=== PATIENT | female | born 1950 | race Caucasian/White ===

== ENCOUNTER 2019-09-22 14:24 | Outpatient (CLI) | payer MEDICARE, MEDICAID, SELFPAY ==
--- NOTE | ~2019-09-22 | XR_ITS ---
EXAMINATION:XR_CERV2-3V_CR DATE: 09/22/2019 15:00 INDICATION: Cervicalgia TECHNIQUE: AP, lateral, lateral swimmers and odontoid views of the cervical spine are provided. COMPARISON: 04/16/2016 FINDINGS: Again seen are changes of anterior fusion from C5 through C7 with corpectomy and changes of posterior fusion from C3 through T2. The odontoid is intact. No fracture is identified. Vertebral ce dy alignment is normal. There is mild loss of intervertebral disc space height at C4-5 and C7-T1. Pre vertebral soft tissues are normal. A partially imaged triple lead pacemaker has been inserted. IMPRESSION: 1. Mild cervical spondylosis without acute findings or significant interval change. Stable surgical c hange. Reviewed, dictated and finalized at location A. ERCIAL DRAFTER IMPRESSION: 1. Mild cervical spondylosis without acute findings or significant interval emily nge. Stable surgical change.
[2019-09-22 15:12] LABS: Alanine Aminotransferase 20 U/L (4-35); Albumin Level 4.2 g/dL (3.5-5.1); Alkaline Phosphatase 54 U/L (38-126); Aspartate Amino Transferase 37 U/L (14-36); Bilirubin,Total 0.4 mg/dL (0.2-1.3); Blood Urea Nitrogen 18 mg/dL (7-17); Calcium 8.9 mg/dL (8.4-10.2); Carbon Dioxide 32 mmol/L (22-30); Chloride 99 mmol/L (98-107); Cholesterol 172 mg/dL (0-200); Estimated Glomerular Filt Rate > 60; Glucose 83 mg/dL (65-105); HDL Direct 59 mg/dL; Potassium 3.9 mmol/L (3.4-5.0); Sodium 138 mmol/L (137-145); Triglycerides 104 mg/dL (<150)
[2019-09-22 15:24] LABS: LDL Cholesterol Direct 85 mg/dL
== END 2019-09-22 14:25 | disposition home or self-care (01) ==
PROVIDERS: PCP Family Medicine; Visit Provider Physician Assistant Medical
DX: M54.2 Cervicalgia (principal); E78.5 Hyperlipidemia, unspecified; M47.892 Other spondylosis, cervical region
CPT/HCPCS: 36415; 72040; 80053; 80061

== ENCOUNTER → 2020-04-01 15:01 | Outpatient (CLI) | payer MEDICARE, MEDICAID, SELFPAY ==
--- NOTE | ~2020-04-01 | MM_ITS ---
EXAMINATION: MM scrn tay implant BI w vero HISTORY: Screening mammogram TECHNIQUE: Craniocaudal and mediolateral oblique 3-D tomosynthesis images with implant displacement a nd synthetic 2-D images were generated. Craniocaudal and mediolateral oblique views of the breasts wi thout implant displacement were obtained using full field digital mammography. CAD analysis was submi tted and interpreted. COMPARISON: 12/15/2018, 08/14/2017, 05/15/2016 bilateral implant digital screening mammogram examinatio ns BREAST PARENCHYMAL COMPOSITION: The breasts are heterogeneously dense, which may obscure small masses . FINDINGS: Status post bilateral augmentation mammoplasty. There is persistent lobularity as well as s ome peripheral calcifications of the implants. There is no evidence of suspicious mass, calcification , or architectural distortion to suggest malignancy in either breast. There has been no suspicious in terval change. IMPRESSION: 1. No mammographic evidence of malignancy. 2. Recommend routine screening mammography in one year. BI-RADS Category 2: Benign finding(s). Reviewed, dictated and finalized at location A.
== END ==
PROVIDERS: PCP Family Medicine; Visit Provider Family Medicine
DX: Z12.31 Encounter for screening mammogram for malignant neoplasm of breast (principal)
CPT/HCPCS: 77063; 77067

== ENCOUNTER → 2020-04-11 16:01 | Outpatient (CLI) | payer MEDICARE, MEDICAID, SELFPAY ==
--- NOTE | ~2020-04-11 | XR_ITS ---
EXAMINATION: XR foot RT min 3V DATE: 04/11/2020 16:29 INDICATION: Right foot pain. TECHNIQUE: 4 views of right foot were obtained. COMPARISON: Right foot radiographs 08/29/2016 FINDINGS: Bone alignment is normal. No fracture. There is interval resection of the proximal half of first proximal phalanx. There is irregularity of the distal aspect of the head of first metatarsal, l ikely from resection of the articular surface. There is mild osteoarthritis of some of the interphala ngeal joints. IMPRESSION: 1. Interval bone resection at the first metatarsophalangeal joint with resulting pseudoarthrosis. 2. Mild osteoarthritis of the interphalangeal joints. Reviewed, dictated and finalized at location A. IMPRESSION: 1. Interval bone resection at the first metatarsophalangeal joint with resultin g pseudoarthrosis. 2. Mild osteoarthritis of the interphalangeal joints.
== END ==
PROVIDERS: PCP Family Medicine; Visit Provider Podiatrist Foot & Ankle Surgery
DX: M84.374A Stress fracture, right foot, initial encounter for fracture (principal); M19.071 Primary osteoarthritis, right ankle and foot
CPT/HCPCS: 73630

== ENCOUNTER 2020-05-19 12:17 | Outpatient (CLI) | payer MEDICARE, MEDICAID, SELFPAY ==
--- NOTE | ~2020-05-19 | XR_ITS ---
EXAMINATION: XR lumbar spine 2-3V DATE: 05/19/2020 13:00 INDICATION: Low back pain. TECHNIQUE: 3 views of lumbar spine were obtained. COMPARISON: CT abdomen and pelvis 04/28/2018 FINDINGS: There is 6 degrees dextrocurvature of thoracolumbar spine. There are chronic bilateral L5 p ars defects. There is 5 mm anterolisthesis of L5 on S1. Vertebral body heights are normal. There is m ildly decreased disc height at L3-L4 and L4-L5 and severely decreased disc height at L5-S1. There is multilevel facet joint osteoarthritis. There is Baastrup disease at L3-L4 and L4-L5. There are emboli zation coils in left upper quadrant. Pacer wires are noted. IMPRESSION: 1. Chronic bilateral L5 pars defects with grade 1 anterolisthesis of L5 on S1. 2. Severe lower lumbar spondylosis. Reviewed, dictated and finalized at location A.
== END 2020-05-19 12:18 | disposition home or self-care (01) ==
LOC: ANHIMG 12:29
PROVIDERS: PCP Family Medicine; Visit Provider Nurse Practitioner Family
DX: M47.896 Other spondylosis, lumbar region (principal)
CPT/HCPCS: 72100

== ENCOUNTER 2020-08-30 14:18 | Outpatient (CLI) | payer MEDICARE, MEDICAID, SELFPAY ==
--- NOTE | ~2020-08-30 | XR_ITS ---
XR hand BI arthritis min 3V 08/30/2020 15:23 Indication: Rheumatoid arthritis Procedure: 4 views of each hand Comparison: 11/06/2005 Findings: There has been progression of polyarticular osteoarthritis involving the right first MCP an d multiple interphalangeal joints. Osteopenia. No erosive changes in the right hand. No focal soft ti ssue abnormality. No radiopaque foreign bodies. There has been progression of moderate-severe polyart icular osteoarthritis of the left hand, most advanced at the first IP, second and fifth distal interp halangeal joints. Osteopenia. No erosive changes. Impression: 1: Progression of moderate polyarticular osteoarthritis of the hands. No definite erosive changes are identified. 2: Osteopenia. Reviewed, dictated and finalized at location A. OLIDATOR Impression: 1: Progression of moderate polyarticular osteoarthritis of the hands. No defini te erosive changes are identified. 2: Osteopenia.
--- NOTE | ~2020-08-30 | XR_ITS ---
XR foot LT standing 2V, XR foot RT standing 2V 08/30/2020 15:23 Indication: Rheumatoid arthritis Procedure: 2 views of each foot Comparison: No prior studies for comparison. Findings: There are erosive changes surrounding the right first metatarsal head with secondary osteoa rthritis of the first MTP joint. Lisfranc joint intact. Mild soft tissue swelling surrounding the rig ht first MTP joint. No foreign bodies. No acute fracture is identified. Mild osteoarthritis of the le ft first MTP joint. No definite erosive changes visualized. No fracture or traumatic malalignment. Impression: 1: Erosive changes involving the right first metatarsal head with probable secondary degenerative massimo nt disease of the MTP joint. Findings compatible with known rheumatoid arthritis. 2: Mild osteoarthritis of the left first MTP joint. Reviewed, dictated and finalized at location A. E Impression: 1: Erosive changes involving the right first metatarsal head with probable seco ndary degenerative joint disease of the MTP joint. Findings compatible with kno wn rheumatoid arthritis. 2: Mild osteoarthritis of the left first MTP joint. Impression: 1: Erosive changes involving the right first metatarsal head with probable seco ndary degenerative joint disease of the MTP joint. Findings compatible with kno wn rheumatoid arthritis. 2: Mild osteoarthritis of the left first MTP joint.
[2020-08-30 15:11] LABS: Hematocrit 38.8 % (37.0-47.0); Hemoglobin 12.9 g/dL (12.0-15.0); Immature Platelet Fraction Pct 3.2 % (0.9-11.2); Mean Corpuscular HGB Conc 33.2 g/dl (32-36); Mean Corpuscular Hemoglobin 32.8 pg (26-34); Mean Corpuscular Volume 98.7 fl (80-100); Mean Platelet Volume 10.3 fl (7.4-10.4); Platelet Count Result 145 k/mm3 (150-375); Red Blood Count 3.93 M/mm3 (4.2-5.4); Red Cell Distribution Width 12.5 % (11.5-14.5)
[2020-08-30 15:17] LABS: Add Urine Microscopic? YES; Appearance Urine Clear (Clear); Bilirubin Urine Negative (Negative); Blood Urine Negative (Negative); Color Urine Yellow (Yellow); Glucose Urine UA Negative (Negative); Ketones Urine Negative (Negative); Leukocyte Esterase Ur Trace LEU/UL (Negative); Mucus Urine Heavy /lpf; Nitrate Urine Negative (Negative); Protein Urine Negative (Negative); RBC Urine 0-2 /hpf (0-2); Specific Grav Ur 1.013 (1.001-1.035); Squamous Epithelial Cell Urine Rare /hpf (Few); Urobilinogen Urine Negative mg/dL (<2.0); WBC Urine 0-3 /hpf
[2020-08-30 15:22] LABS: Alanine Aminotransferase 21 U/L (4-35); Albumin Level 3.8 g/dL (3.5-5.1); Alkaline Phosphatase 43 U/L (38-126); Anion Gap 3 mmol/L (8-16); Aspartate Amino Transferase 34 U/L (14-36); Bilirubin,Total 0.4 mg/dL (0.2-1.3); Blood Urea Nitrogen 11 mg/dL (7-17); CRP < 0.5 mg/dL (<1.0); Calcium 8.5 mg/dL (8.4-10.2); Carbon Dioxide 33 mmol/L (22-30); Chloride 104 mmol/L (98-107); Estimated Glomerular Filt Rate > 60; Glucose 76 mg/dL (65-105); Sodium 140 mmol/L (137-145)
[2020-08-30 15:23] LABS: Rheumatoid Factor < 8.6 IU/ML (<12)
[2020-08-30 15:53] LABS: Erythrocyte Sedimentation Rate 10 mm/hr (0-20)
[2020-08-30 16:46] LABS: Hepatitis B Surface Antigen Negative (Negative)
[2020-08-30 17:03] LABS: Hepatitis B Surface Anti Res Negative; Hepatitis C Virus Antibody Negative (Negative)
[2020-09-02 00:12] LABS: NIL 0.02 IU/mL; Quantiferon TB Plus, 1T NEGATIVE (NEGATIVE)
[2020-09-02 10:02] LABS: Anti Cyclic Citrullinated Pept <16 Units (<20)
== END 2020-08-30 14:19 | disposition home or self-care (01) ==
PROVIDERS: PCP Family Medicine; Visit Provider Internal Medicine
DX: M05.20 Rheumatoid vasculitis with rheumatoid arthritis of unspecified site (principal); Z11.59 Encounter for screening for other viral diseases; M19.90 Unspecified osteoarthritis, unspecified site; M05.79 Rheumatoid arthritis with rheumatoid factor of multiple sites without organ or systems involvement
CPT/HCPCS: 36415; 73130; 73620; 80053; 81001; 85027; 85055; 85652; 86038; 86039; 86140; 86200; 86430; 86480; 86706; 86803; 87340

== ENCOUNTER 2021-02-20 15:17 | Outpatient (CLI) | payer MEDICARE, MEDICAID, SELFPAY ==
[2021-02-20 16:02] LABS: Basophils Percent Auto 0.6 % (0.2-1.2); Eosinophils Absolute Auto 0.3 K/mm3 (0-0.3); Eosinophils Percent Auto 4.1 % (0-4.4); Hemoglobin 12.8 g/dL (12.0-15.0); Immature Granulocyte Absolute 0.02 K/mm3 (0.00-0.031); Immature Granulocyte Percent A 0.3 % (0-0.5); Lymphocytes Absolute Auto 2.39 K/mm3 (0.9-3.2); Lymphocytes Percent Auto 33.9 % (18.3-44.2); Mean Corpuscular HGB Conc 32.8 g/dl (32-36); Mean Corpuscular Hemoglobin 31.1 pg (26-34); Mean Corpuscular Volume 94.7 fl (80-100); Mean Platelet Volume 10.3 fl (7.4-10.4); Monocytes Absolute Auto 0.7 K/mm3 (0.1-0.6); Monocytes Percent Auto 10.1 % (2.6-8.5); Neutrophils Absolute Auto 3.6 K/mm3 (1.3-6.7); Platelet Count Result 169 k/mm3 (150-375); Red Blood Count 4.12 M/mm3 (4.2-5.4); Red Cell Distribution Width 12.9 % (11.5-14.5)
[2021-02-20 16:16] LABS: Alanine Aminotransferase 35 U/L (4-35); Albumin Level 4.1 g/dL (3.5-5.1); Alkaline Phosphatase 48 U/L (38-126); Anion Gap 6 mmol/L (8-16); Aspartate Amino Transferase 48 U/L (14-36); Bilirubin,Total 0.5 mg/dL (0.2-1.3); Blood Urea Nitrogen 19 mg/dL (7-17); Calcium 9.3 mg/dL (8.4-10.2); Carbon Dioxide 31 mmol/L (22-30); Chloride 100 mmol/L (98-107); Cholesterol 170 mg/dL (0-200); Estimated Glomerular Filt Rate > 60; Glucose 82 mg/dL (65-110); HDL Direct 53 mg/dL; Sodium 137 mmol/L (137-145); Triglycerides 111 mg/dL (<150)
[2021-02-20 16:27] LABS: LDL Cholesterol Direct 74 mg/dL
[2021-02-20 17:26] LABS: Folic Acid > 20.0 ng/mL (2.76->20); Vitamin B12 > 1000.0 pg/mL (239-931)
== END 2021-02-20 15:18 | disposition home or self-care (01) ==
LOC: ANHLAB 15:21
PROVIDERS: PCP Family Medicine; Visit Provider Family Medicine
DX: K21.9 Gastro-esophageal reflux disease without esophagitis (principal); E78.5 Hyperlipidemia, unspecified; Z13.220 Encounter for screening for lipoid disorders; M05.79 Rheumatoid arthritis with rheumatoid factor of multiple sites without organ or systems involvement
CPT/HCPCS: 36415; 80048; 80061; 80076; 82607; 82746; 85025

== ENCOUNTER 2021-04-09 08:27 | Emergency (ER) | payer MEDICARE, MEDICAID, SELFPAY ==
--- NOTE | ~2021-04-09 | XR_ITS ---
EXAMINATION: XR wrist RT min 3V, XR hand RT min 3V EXAM DATE: 04/09/2021 08:55 INDICATION: rt hand and wrist pain s/p fall last night . TECHNIQUE: Right hand frontal, lateral and oblique projections obtained and reviewed. Right wrist fro ntal, frontal with ulnar deviation, oblique and lateral projections obtained and reviewed. Comparison is made to prior examination from 08/30/2020. FINDINGS: Right metacarpal bones are unremarkable. Right wrist scapholunate joint space is maintain ed. Capitate and hamate bones appear fused, congenital variant. There are no acute fractures or dislo cations identified. There is some posterior subluxation of the right 5th distal phalanx, probably deg enerative-there was similar appearance on prior study. There is no subcutaneous gas. There is soft ti ssue swelling over the wrist posteriorly. There are no radiopaque foreign bodies. There is mild to moderate distal interphalangeal primary osteoarthritis. IMPRESSION: 1. Soft tissue swelling. 2. Chronic findings. Reviewed, dictated and finalized at location A. IMPRESSION: 1. Soft tissue swelling. 2. Chronic findings.
--- NOTE | 2021-04-09 08:36 | ED.UPPEXIN ---
HPI - Extremity Injury (Upper) General Chief Complaint: Extremity Injury, Upper Stated Complaint: RIGHT HAND INJURY Time Seen by Provider: 04/09/21 08:34 Source: patient and RN notes reviewed Mode of arrival: ambulatory Limitations: no limitations History of Present Illness HPI narrative: 70-year-old female presents to the [facility] with complaints of right hand and wrist pain after tripping and falling last night. Patient states that she was walking when she tripped and fell. Denies hitting head. No loss of consciousness. Pain swelling and bruising noted to the dorsal aspect of right hand and wrist. Significant swelling noted to the thumb area. Patient has a history of RA. Related Data Home Medications Medication Instructions Recorded Confirmed ascorbate calcium (vitamin C) PO 04/09/21 calcium carbonate-vitamin D3 tablet 04/09/21 [Cabrera-600 With Vitamin D] carvedilol 04/09/21 methotrexate sodium 04/09/21 owdskwhifwjs-saz-qtct-FA-vit K tablet PO 04/09/21 [Adults Multivitamin] pravastatin 04/09/21 tocilizumab [Actemra] mg SUBCUT 04/09/21 venlafaxine mg PO 04/09/21 04/09/21 Allergies Allergy/AdvReac Type Severity Reaction Status Date / Time metoclopramide Allergy Severe SEIZURES Verified 02/20/21 09:27 propoxyphene Allergy Severe NAUSEA Verified 02/20/21 09:27 Cephalosporins Allergy Mild SWELLING Verified 02/20/21 09:27 OF MOUTH AND THROAT Penicillins Allergy Mild SWELLING, Verified 04/09/21 08:47 HIVES prochlorperazine Allergy Mild SEIZURES Verified 02/20/21 09:27 promethazine Allergy Mild UNSURE Verified 02/20/21 09:27 capsaicin [From Zostrix] AdvReac Intermediate Joint Pain Verified 02/20/21 09:27 Review of Systems Review of Systems: All systems reviewed & are unremarkable except as noted in HPI and below Constitutional: Constitutional: Reports no additional constitutional complaints, Denies chills and Denies fever(s) Eyes: Eyes: Reports no additional eye complaints ENT: Reports system reviewed and no additional complaints, except as documented Cardiovascular: Cardiovascular: Reports no additional cardiovascular complaints Respiratory: Respiratory: Reports no additional respiratory complaints Musculoskeletal: Musculoskeletal: Reports as per HPI, Reports arthralgias (Right hand and wrist) and Reports joint swelling (Right hand and wrist) Integumentary/Breasts: Skin/Breast: Reports system reviewed and no additional complaints, except as docu Neurologic: Reports system reviewed and no additional complaints, except as documented Psychiatric: Psychiatric: Reports no additional psychiatric complaints Allergic/Immunologic: Allergic/Immunologic: Reports no additional allergic/immunologic complaints [facility] Past Medical History Medical History Anxiety Arthritis BMI 23.0-23.9, adult BMI 26.0-26.9,adult Bundle branch block Depression Encounter for screening for other viral diseases GERD without esophagitis Osteopenia Pacemaker Rheumatoid arthritis with rheumatoid factor of multiple sites without organ or systems involvement Surgical History Surgical History History of augmentation mammoplasty History of knee replacement History of Nico fundoplication Family History Family History Father Family history of malignant neoplasm Parkinsons Mother Family history of diabetes mellitus in first degree relative Diabetes mellitus Grandparent Family history of tuberculosis Sibling Pulmonary fibrosis, unspecified Other Family history of kidney disease Social History Social History Second hand tobacco smoke exposure: No Alcohol intake: never Substance use: never Substance use type: does not use 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
[2021-04-09 08:38] VITALS: BP 176/93; PULSE 85; RESP 16; TEMP 36.3; O2SAT 99
[2021-04-09 09:27] VITALS: BP 126/76
== END 2021-04-09 09:37 | disposition home or self-care (01) ==
PROVIDERS: Emergency Provider Nurse Practitioner; PCP Family Medicine
DX: S60.221A Contusion of right hand, initial encounter (principal); S60.412A Abrasion of right middle finger, initial encounter; S60.211A Contusion of right wrist, initial encounter; F41.9 Anxiety disorder, unspecified; F32.9 Major depressive disorder, single episode, unspecified; W01.0XXA Fall on same level from slipping, tripping and stumbling without subsequent striking against object, initial encounter
CPT/HCPCS: 73110; 73130; 99213; G0463

== ENCOUNTER 2021-04-14 12:58 | Emergency (ER) | payer MEDICARE, MEDICAID, SELFPAY ==
--- NOTE | ~2021-04-14 | XR_ITS ---
EXAMINATION: XR hip RT min 3V w AP pelvis EXAM DATE: 04/14/2021 15:05 INDICATION: Initial encounter following injury, with pain of the right hip. TECHNIQUE: Right hip frontal, crosstable lateral and 'frog-leg' projections for interpretation. Front al projection pelvis. FINDINGS: Smooth right hip femoral head contour, no radiographic evidence of avascular necrosis. The re are no acute fractures or dislocations identified. There is no subcutaneous gas. The soft tissue is unremarkable. There are no radiopaque foreign bodies. There is mild symmetric bilateral hip pr imary osteoarthritis. IMPRESSION: 1. Right hip, pelvis exam without acute osseous findings. Reviewed, dictated and finalized at location B.
--- NOTE | ~2021-04-14 | XR_ITS ---
EXAMINATION: XR hand RT min 3V, XR wrist RT 2V DATE: 04/14/2021 15:05 INDICATION: Right hand and wrist bruising and abrasions post fall TECHNIQUE: 1. Posteroanterior and lateral views of the right wrist were obtained. 2. Dorsal palmar and lateral views of the right hand were obtained. COMPARISON: None. FINDINGS: Alignment of the right hand and wrist are normal. Likely old healed avulsion fracture deformity at th e base of the right fifth distal phalanx. No acute fracture identified. Polyarticular osteoarthritis, severe at the second and third distal interphalangeal joints, moderate severity at the first interph alangeal, fourth and fifth distal interphalangeal, the midcarpal and triscaphe joints. Mild osteoarth ritis at the first carpometacarpal and many of the remaining metacarpophalangeal and interphalangeal joints. Soft tissue swelling over the dorsum of the carpus. IMPRESSION: 1. No acute osseous abnormality at the right hand and wrist. 2. Polyarticular osteoarthritis, moderate to severe at multiple joints at the right hand and wrist. Reviewed, dictated and finalized at location A. IMPRESSION: 1. No acute osseous abnormality at the right hand and wrist. 2. Polyarticular osteoarthritis, moderate to severe at multiple joints at the [facility]. IMPRESSION: 1. No acute osseous abnormality at the right hand and wrist. 2. Polyarticular osteoarthritis, moderate to severe at multiple joints at the r ight hand and wrist.
--- NOTE | ~2021-04-14 | XR_ITS ---
EXAMINATION: XR chest 1V DATE: 04/14/2021 15:07 INDICATION: Fall. TECHNIQUE: frontal view of the chest was obtained. COMPARISON: Chest radiograph dated 03/17/[address] dated 04/28/2018 FINDINGS: The lungs remain clear with no focal airspace opacities, pulmonary edema, pleural effusion or pneumot horax. The cardiomediastinal silhouette is normal. Three lead pacemaker/AICD seen with leads projecti ng over the expected locations of the right atrial appendage, apex of the right ventricle and overlyi ng the left ventricle likely having traversed the coronary sinus. Mineralization) left upper quadrant likely along the splenic artery. Incompletely visualized combined instrumented anterior lower cervic al and posterior cervicothoracic spinal fusion. Tiny metallic foreign body at the inferomedial right chest wall. IMPRESSION: 1. No acute cardiopulmonary disease. Reviewed, dictated and finalized at location A.
--- NOTE | ~2021-04-14 | XR_ITS ---
EXAMINATION: XR lumbar spine 2-3V, XR sacrum coccyx min 2V EXAM DATE: 04/14/2021 15:06 (accession [id number]), 04/14/2021 15:07 (accession [id number]) INDICATION: Fall low back pain. Sacral pain. Initial encounter. TECHNIQUE: Lumber spine frontal, lateral, lateral L5-S1 projections for interpretation. Sacrum fronta l, inlet, lateral projections. Compared to lumbar x-ray exam from 05/19/2020. FINDINGS: There are no acute fractures identified. Chronic bilateral L5 spondylolysis with grade 2 a nterolisthesis L5 on S1, moderate to severe loss of this disc height unchanged. Sacrum, sacroiliac marissa ints, sacral arcuate lines are intact. There is mild lumbar dextroscoliosis. There is 2 mm anterolist hesis L4 on L5. Mild disc disease L1-L5. Mild to moderate lumbar facet arthropathy. Splenic artery co ils. IMPRESSION: 1. Chronic L5 spondylolysis, grade 2 anterolisthesis. 2. Lumbar spondylosis. 3. Mild dextroscoliosis. Reviewed, dictated and finalized at location B. IMPRESSION: 1. Chronic L5 spondylolysis, grade 2 anterolisthesis. 2. Lumbar spondylosis. 3. Mild dextroscoliosis.
[2021-04-14 12:58] VITALS: BP 125/80; PULSE 92; RESP 16; TEMP 37.5; O2SAT 95
--- NOTE | 2021-04-14 14:19 | ED.BACK ---
HPI - Back Pain/Injury General Chief Complaint: Back Pain/Injury Stated Complaint: back pain, fell 2 last week Time Seen by Provider: 04/14/21 13:53 Source: patient and EMS Mode of arrival: EMS Limitations: no limitations History of Present Illness HPI Narrative: Patient 70 years old white female lives with her son, tripped and fell 6 days ago outdoors on a concrete. Patient denies any loss of consciousness, complaining of right hip, lower back, right hand pain since the fall 6 days ago. Patient did not take any pain medication over the last 6 days. History of rheumatoid arthritis patient does not take blood thinner Related Data Home Medications Medication Instructions Recorded Confirmed ascorbate calcium (vitamin C) PO 04/09/21 04/11/21 calcium carbonate-vitamin D3 tablet 04/09/21 04/11/21 [Cabrera-600 With Vitamin D] carvedilol 04/09/21 04/11/21 methotrexate sodium 04/09/21 04/11/21 brcoxbjiyyfw-geg-rxki-FA-vit K tablet PO 04/09/21 04/11/21 [Adults Multivitamin] pravastatin 04/09/21 04/11/21 tocilizumab [Actemra] mg SUBCUT 04/09/21 04/11/21 venlafaxine mg PO 04/09/21 04/11/21 Allergies Allergy/AdvReac Type Severity Reaction Status Date / Time metoclopramide Allergy Severe SEIZURES Verified 04/11/21 07:56 propoxyphene Allergy Severe NAUSEA Verified 04/11/21 07:56 Cephalosporins Allergy Mild SWELLING Verified 04/11/21 07:56 OF MOUTH AND THROAT Penicillins Allergy Mild SWELLING, Verified 04/11/21 07:56 HIVES prochlorperazine Allergy Mild SEIZURES Verified 04/11/21 07:56 promethazine Allergy Mild UNSURE Verified 04/11/21 07:56 capsaicin [From Zostrix] AdvReac Intermediate Joint Pain Verified 04/11/21 07:56 Review of Systems Review of Systems: CONSTITUTIONAL: Denies fever, chills, or sweats. EYES: Denies visual changes, redness, or discharge. ENT: Denies rhinorrhea, congestion, sore throat, or otalgia. CARDIOVASCULAR: Denies chest pain, palpitations, or edema. RESPIRATORY: Denies cough or dyspnea. GASTROINTESTINAL: Denies abdominal pain, nausea, vomiting, or diarrhea. GENITOURINARY: Denies dysuria or hematuria. SKIN: Denies rash or itching. MUSCULOSKELETAL: Denies back pain, joint pain, or myalgia. NEUROLOGIC: Denies headache, numbness, or weakness. PSYCHIATRIC: Denies anxiety or depression. [facility] Past Medical History Medical History Anxiety Arthritis BMI 23.0-23.9, adult BMI 26.0-26.9,adult Bundle branch block Depression Encounter for screening for other viral diseases GERD without esophagitis Osteopenia Pacemaker Rheumatoid arthritis with rheumatoid factor of multiple sites without organ or systems involvement Surgical History Surgical History History of augmentation mammoplasty History of knee replacement History of Nico fundoplication Family History Family History Father Family history of malignant neoplasm Parkinsons Mother Family history of diabetes mellitus in first degree relative Diabetes mellitus Grandparent Family history of tuberculosis Sibling Pulmonary fibrosis, unspecified Other Family history of kidney disease Social History Social History Smoking status: Never smoker Second hand tobacco smoke exposure: No Alcohol intake: never Substance use: never Substance use type: does not use Additional living arrangements comments: son 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
[2021-04-14] MEDS: ONDANSETRON INJ 4 MG/2 ML VIAL IV PUSH (14:25)
[2021-04-14] MEDS: MORPHINE SULFATE (*CRX) 4 MG/ML INJ IV PUSH (14:25)
[2021-04-14 15:26] LABS: Basophils Percent Auto 0.1 % (0.2-1.2); Eosinophils Percent Auto 0.1 % (0-4.4); Hemoglobin 12.4 g/dL (12.0-15.0); Immature Granulocyte Absolute 0.07 K/mm3 (0.00-0.031); Immature Granulocyte Percent A 0.5 % (0-0.5); Lymphocytes Absolute Auto 1.94 K/mm3 (0.9-3.2); Lymphocytes Percent Auto 14.1 % (18.3-44.2); Mean Corpuscular HGB Conc 33.5 g/dl (32-36); Mean Corpuscular Hemoglobin 31.7 pg (26-34); Mean Corpuscular Volume 94.6 fl (80-100); Mean Platelet Volume 10.1 fl (7.4-10.4); Monocytes Absolute Auto 1.9 K/mm3 (0.1-0.6); Monocytes Percent Auto 13.7 % (2.6-8.5); Neutrophils Absolute Auto 9.8 K/mm3 (1.3-6.7); Neutrophils Percent Auto 71.5 % (45.5-73.1); Platelet Count Result 174 k/mm3 (150-375); Red Blood Count 3.91 M/mm3 (4.2-5.4); Red Cell Distribution Width 12.9 % (11.5-14.5); White Blood Count 13.7 K/mm3 (4.5-10.0)
[2021-04-14 15:29] LABS: Add Urine Microscopic? YES; Appearance Urine Clear (Clear); Bilirubin Urine Negative (Negative); Blood Urine Negative (Negative); Color Urine Yellow (Yellow); Glucose Urine UA Negative (Negative); Ketones Urine Negative (Negative); Leukocyte Esterase Ur Negative LEU/UL (Negative); Nitrate Urine Negative (Negative); Protein Urine 1+ mg/dL (Negative); RBC Urine 0-2 /hpf (0-2); Specific Grav Ur 1.012 (1.001-1.035); Squamous Epithelial Cell Urine Rare /hpf (Few); Urobilinogen Urine Negative mg/dL (<2.0); WBC Urine 0-3 /hpf
[2021-04-14 15:36] LABS: Alanine Aminotransferase 132 U/L (4-35); Albumin Level 3.9 g/dL (3.5-5.1); Alkaline Phosphatase 155 U/L (38-126); Anion Gap 7 mmol/L (8-16); Aspartate Amino Transferase 119 U/L (14-36); Bilirubin,Total 0.8 mg/dL (0.2-1.3); Blood Urea Nitrogen 11 mg/dL (7-17); Calcium 9.1 mg/dL (8.4-10.2); Carbon Dioxide 29 mmol/L (22-30); Chloride 98 mmol/L (98-107); Estimated CRCL calculation 61 ml/min; Estimated Glomerular Filt Rate > 60; Glucose 111 mg/dL (65-110); Potassium 3.8 mmol/L (3.4-5.0); Sodium 134 mmol/L (137-145)
== END 2021-04-14 16:25 | disposition home or self-care (01) ==
PROVIDERS: Emergency Provider Emergency Medicine; PCP Family Medicine
DX: T14.8XXA Other injury of unspecified body region, initial encounter (principal); M06.9 Rheumatoid arthritis, unspecified; F41.9 Anxiety disorder, unspecified; F32.9 Major depressive disorder, single episode, unspecified; Z79.899 Other long term (current) drug therapy; Z88.8 Allergy status to other drugs, medicaments and biological substances; Z88.0 Allergy status to penicillin; Z95.0 Presence of cardiac pacemaker; W18.39XA Other fall on same level, initial encounter
CPT/HCPCS: 36415; 51701; 71045; 72100; 72220; 73100; 73130; 73502; 80053; 81001; 85025; 96374; 96375; 99284; J2270; J2405

== ENCOUNTER 2021-05-10 12:58 | Emergency (ER) | payer MEDICARE, MEDICAID, SELFPAY ==
[2021-05-10 13:14] VITALS: BP 116/81; PULSE 100; RESP 16; TEMP 36.7; O2SAT 100
--- NOTE | 2021-05-10 13:47 | ED.FEMALEGU ---
HPI - Female Genitourinary General Chief complaint: Urogenital-Female Stated complaint: bladder infection Time Seen by Provider: 05/10/21 13:48 Source: patient and RN notes reviewed Mode of arrival: ambulatory Limitations: no limitations History of Present Illness HPI Narrative: 71-year-old female presents concern for 1 day history of dysuria, frequency, suprapubic pain, foul odor. Reports history of urinary tract infections. Denies any recent urinary tract infections. She denies new back pain, nausea, vomiting. Reports suprapubic discomfort. MD elicited complaint: UTI Related Data Home Medications Medication Instructions Recorded Confirmed ascorbate calcium (vitamin C) PO 04/09/21 04/11/21 calcium carbonate-vitamin D3 tablet 04/09/21 04/11/21 [Cabrera-600 With Vitamin D] methotrexate sodium 8 WEEKLY 04/09/21 04/11/21 rrkfzcggjmwo-mkj-dkbo-FA-vit K tablet PO 04/09/21 04/11/21 [Adults Multivitamin] pravastatin 04/09/21 04/11/21 venlafaxine mg PO 04/09/21 04/11/21 cyclobenzaprine mg 05/10/21 naloxone [Narcan] INTRANASAL 05/10/21 omeprazole 05/10/21 tocilizumab [Actemra] mg SUBCUT 05/10/21 Allergies Allergy/AdvReac Type Severity Reaction Status Date / Time metoclopramide Allergy Severe SEIZURES Verified 04/11/21 07:56 propoxyphene Allergy Severe NAUSEA Verified 04/11/21 07:56 Cephalosporins Allergy Mild SWELLING Verified 04/11/21 07:56 OF MOUTH AND THROAT Penicillins Allergy Mild SWELLING, Verified 04/11/21 07:56 HIVES prochlorperazine Allergy Mild SEIZURES Verified 04/11/21 07:56 promethazine Allergy Mild UNSURE Verified 04/11/21 07:56 capsaicin [From Zostrix] AdvReac Intermediate Joint Pain Verified 04/11/21 07:56 Review of Systems Review of Systems: CONSTITUTIONAL: Denies malaise, chills, sweats, or fever. GASTROINTESTINAL: Denies abdominal pain, nausea, vomiting, diarrhea GENITOURINARY: Reports dysuria, frequency, foul odor, suprapubic discomfort SKIN: Denies rash or itching. MUSCULOSKELETAL: Denies new back pain or myalgia. All systems reviewed & are unremarkable except as noted in HPI and below PMFSH Past Medical History Medical History Anxiety Arthritis BMI 23.0-23.9, adult BMI 26.0-26.9,adult Bundle branch block Depression Encounter for screening for other viral diseases GERD without esophagitis Osteopenia Pacemaker Rheumatoid arthritis with rheumatoid factor of multiple sites without organ or systems involvement Surgical History Surgical History History of augmentation mammoplasty History of knee replacement History of Nico fundoplication Family History Family History Father Family history of malignant neoplasm Parkinsons Mother Family history of diabetes mellitus in first degree relative Diabetes mellitus Grandparent Family history of tuberculosis Sibling Pulmonary fibrosis, unspecified Other Family history of kidney disease Social History Social History Smoking status: Never smoker Second hand tobacco smoke exposure: No Alcohol intake: never Substance use: never Substance use type: does not use Additional living arrangements comments: son 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 There is no relevant family history pertinent to the presenting complaint Exam Narrative: GENERAL: Well-appearing, well-nourished, and in no acute distress. HEAD: Normocephalic. EYES: PERRLA, conjunctivae clear. NECK
== END 2021-05-10 13:56 | disposition home or self-care (01) ==
PROVIDERS: Emergency Provider Nurse Practitioner; PCP Family Medicine
DX: N39.0 Urinary tract infection, site not specified (principal); M19.90 Unspecified osteoarthritis, unspecified site; K21.9 Gastro-esophageal reflux disease without esophagitis; M81.0 Age-related osteoporosis without current pathological fracture; Z95.1 Presence of aortocoronary bypass graft; Z95.0 Presence of cardiac pacemaker; M05.9 Rheumatoid arthritis with rheumatoid factor, unspecified
CPT/HCPCS: 81003; 87077; 87086; 87186; 99213; G0463

== ENCOUNTER 2021-05-15 14:55 | Outpatient (RCR) | payer MEDICARE, MEDICAID, SELFPAY ==
--- NOTE | ~2021-05-15 | XR_ITS ---
EXAMINATION: XR hip BI wo pelvis DATE: 05/15/2021 16:28 INDICATION: Joint pain TECHNIQUE: Anteroposterior and frog-leg lateral views of the left hip and anteroposterior and frog-le g lateral views of the right hip were obtained. COMPARISON: None. FINDINGS: Bone alignment is normal. No fracture or suspected avascular necrosis. Bilateral hip joint spaces are normal. Mild right and minimal left sacroiliac osteoarthritis. Suture anchors at the bilateral pubic bodies. IMPRESSION: 1. Normal bilateral hips. Reviewed, dictated and finalized at location A. IMPRESSION: 1. Normal bilateral hips.
--- NOTE | ~2021-05-15 | XR_ITS ---
EXAMINATION: XR elbow RT 2V DATE: 05/15/2021 16:28 INDICATION: Right elbow pain TECHNIQUE: Anteroposterior and lateral views of the right elbow were obtained. COMPARISON: None. FINDINGS: Alignment is normal. No fracture or joint effusion. Joint spaces are normal. There is osseous excresc ence with cortical and medullary continuity arising from the anterior margin of the medial supracondy lar region. Soft tissues are unremarkable. IMPRESSION: 1. Small osseous excrescence arising anteriorly from the medial supracondylar region which could repr esent either a small osteochondroma or heterotopic ossicles related to old trauma. Otherwise unremark able right elbow radiographs. Reviewed, dictated and finalized at location A. IMPRESSION: 1. Small osseous excrescence arising anteriorly from the medial supracondylar r egion which could represent either a small osteochondroma or heterotopic ossicl es related to old trauma. Otherwise unremarkable right elbow radiographs.
--- NOTE | ~2021-05-15 | XR_ITS ---
EXAMINATION: XR elbow LT 2V DATE: 05/15/2021 16:28 INDICATION: Left elbow joint pain TECHNIQUE: Anteroposterior, two oblique and lateral views of the left elbow were obtained. COMPARISON: None. FINDINGS: Alignment is normal. No fracture or joint effusion. Joint spaces are normal. Soft tissues are unremar kable. IMPRESSION: 1. Negative left elbow radiographs. Reviewed, dictated and finalized at location A.
--- NOTE | ~2021-05-15 | XR_ITS ---
EXAMINATION: XR foot LT 2V, XR foot RT 2V DATE: 05/15/2021 16:28 INDICATION: Multiple joint pain TECHNIQUE: 1. Dorsoplantar and lateral views of the right foot were obtained. 2. Dorsoplantar and lateral views of the left foot were obtained. COMPARISON: 08/30/2020 FINDINGS: Left foot: Mild hallux valgus with minimal hypertrophic change at the medial head of the first metatarsal. No fr acture. Mild to moderate osteoarthritis at the first metatarsophalangeal joint and mild osteoarthriti s at a few the tarsal metatarsal and interphalangeal joints. Right foot: Postoperative as including osteotomy involving the base of the right first proximal phalanx and bunio nectomy with resection of the medial head of the first metatarsal. Alignment is normal. No fracture. Likely secondary moderate to severe osteoarthritis at the first metatarsophalangeal joint with irregu lar cortical contour to the head of the first metatarsal. Additional mild osteoarthritis at several o f the tarsal metatarsal and interphalangeal joints. IMPRESSION: 1. Osteoarthritis mild to moderate at the left first metatarsophalangeal joint and moderate to severe at the right first metatarsophalangeal joint where there has been prior osteotomy involving the base of the proximal phalanx. 2. Additional mild polyarticular osteoarthritis at multiple bilateral tarsometatarsal and interphalan geal joints. Reviewed, dictated and finalized at location A. IMPRESSION: 1. Osteoarthritis mild to moderate at the left first metatarsophalangeal joint and moderate to severe at the right first metatarsophalangeal joint where there has been prior osteotomy involving the base of the proximal phalanx. 2. Additional mild polyarticular osteoarthritis at multiple bilateral tarsometa tarsal and interphalangeal joints.
--- NOTE | ~2021-05-15 | XR_ITS ---
XR knee LT 2V 05/15/2021 16:28 Indication: Joint pain Procedure: 2 views left knee Comparison: No prior studies for comparison. Findings: No fracture, subluxation or dislocation. No significant joint effusion. No foreign bodies. No significant joint space narrowing. Impression: 1: No significant bone or joint abnormality. Reviewed, dictated and finalized at location B. Impression: 1: No significant bone or joint abnormality.
--- NOTE | ~2021-05-15 | XR_ITS ---
EXAMINATION: XR hand LT 2V, XR wrist RT 2V, XR wrist LT 2V, XR hand RT 2V DATE: 05/15/2021 16:28 INDICATION: Altered mental joint pain at the bilateral hands and wrists TECHNIQUE: 1. Posteroanterior and lateral views of the left wrist were obtained. 2. Dorsal palmar and lateral views of the left hand were obtained. 3. Posteroanterior and lateral views of the right wrist were obtained. 2. Dorsal palmar and lateral views of the right hand were obtained. COMPARISON: 08/30/2020 FINDINGS: Advanced osteoarthritis at the left second distal interphalangeal joint with chronic ulnar deviation. Alignment of the bilateral hands and wrists are otherwise normal. No fracture identified. There is additional polyarticular osteoarthritis at the bilateral hands, moderate severity at the left fifth d istal interphalangeal, right second, third and fifth distal interphalangeal, bilateral first interpha langeal joints, right triscaphe joint and lunocapitate articulation of the right mid carpal joint and mild at the left triscaphe, bilateral first carpometacarpal and majority the remaining metacarpophal angeal and interphalangeal joints. No erosions suspicious for an inflammatory arthritis. Periarticula r soft tissue swelling at several of the bilateral interphalangeal joints. IMPRESSION: 1. Advanced osteoarthritis at the left second distal interphalangeal joint with mild to moderate oste oarthritis throughout the remainder of the bilateral hands as detailed above. Reviewed, dictated and finalized at location A. IMPRESSION: 1. Advanced osteoarthritis at the left second distal interphalangeal joint with mild to moderate osteoarthritis throughout the remainder of the bilateral hand s as detailed above. IMPRESSION: 1. Advanced osteoarthritis at the left second distal interphalangeal joint with mild to moderate osteoarthritis throughout the remainder of the bilateral hand s as detailed above. IMPRESSION: 1. Advanced osteoarthritis at the left second distal interphalangeal joint with mild to moderate osteoarthritis throughout the remainder of the bilateral hand s as detailed above.
[2021-05-15 15:46] LABS: Basophils Percent Auto 0.2 % (0.2-1.2); Eosinophils Absolute Auto 0.1 K/mm3 (0-0.3); Eosinophils Percent Auto 1.3 % (0-4.4); Hematocrit 40.8 % (37.0-47.0); Hemoglobin 13.4 g/dL (12.0-15.0); Immature Granulocyte Absolute 0.03 K/mm3 (0.00-0.031); Immature Granulocyte Percent A 0.3 % (0-0.5); Lymphocytes Absolute Auto 2.89 K/mm3 (0.9-3.2); Lymphocytes Percent Auto 33.1 % (18.3-44.2); Mean Corpuscular HGB Conc 32.8 g/dl (32-36); Mean Corpuscular Hemoglobin 31.3 pg (26-34); Mean Corpuscular Volume 95.3 fl (80-100); Monocytes Absolute Auto 0.6 K/mm3 (0.1-0.6); Monocytes Percent Auto 7.1 % (2.6-8.5); Neutrophils Absolute Auto 5.1 K/mm3 (1.3-6.7); Platelet Count Result 163 k/mm3 (150-375); Red Blood Count 4.28 M/mm3 (4.2-5.4); Red Cell Distribution Width 14.5 % (11.5-14.5); White Blood Count 8.7 K/mm3 (4.5-10.0)
[2021-05-15 16:01] LABS: Creatine Kinase 106 U/L (30-135)
[2021-05-15 16:05] LABS: Alanine Aminotransferase 24 U/L (4-35); Albumin Level 4.7 g/dL (3.5-5.1); Alkaline Phosphatase 76 U/L (38-126); Anion Gap 6 mmol/L (8-16); Aspartate Amino Transferase 37 U/L (14-36); Bilirubin,Total 0.6 mg/dL (0.2-1.3); Blood Urea Nitrogen 13 mg/dL (7-17); CRP < 0.5 mg/dL (<1.0); Calcium 9.1 mg/dL (8.4-10.2); Carbon Dioxide 31 mmol/L (22-30); Chloride 103 mmol/L (98-107); Estimated Glomerular Filt Rate > 60; Glucose 91 mg/dL (65-110); Magnesium 2.1 mg/dL (1.6-2.3); Potassium 3.6 mmol/L (3.4-5.0); Sodium 140 mmol/L (137-145); Uric Acid 3.8 mg/dL (2.5-7.5)
[2021-05-15 16:08] LABS: Rheumatoid Factor < 8.6 IU/ML (<12)
[2021-05-15 16:20] LABS: Hemoglobin A1C 5.4 % (<5.7)
[2021-05-15 17:06] LABS: Erythrocyte Sedimentation Rate 24 mm/hr (0-20)
[2021-05-15 17:29] LABS: Vitamin B12 > 1000.0 pg/mL (239-931)
[2021-05-15 17:54] LABS: Vitamin D 25 Hydroxy 54.5 ng/mL
[2021-05-15 18:08] LABS: Folic Acid 17.7 ng/mL (2.76->20); Free T4 Free Thyroxine 0.99 ng/mL (0.78-2.19)
[2021-05-15 18:12] LABS: Hepatitis B Surface Antigen Negative (Negative)
[2021-05-15 18:29] LABS: Hepatitis B Surface Anti Res Negative; Hepatitis C Virus Antibody Negative (Negative)
[2021-05-17 12:47] LABS: Hepatitis C RNA, Quant PCR <15 IU/mL
[2021-05-17 15:32] LABS: Hepatitis B DNA PCR <1.00 Log IU/mL; Hepatitis B DNA PCR <10 IU/mL
[2021-05-17 22:27] LABS: NIL 0.02 IU/mL; Quantiferon TB Plus, 1T NEGATIVE (NEGATIVE)
[2021-05-19 23:02] LABS: Hepatitis B Core Ab Total Nonreactive (Nonreactive)
== END 2021-08-13 23:59 | disposition home or self-care (01) ==
LOC: ANHLAB 14:55
PROVIDERS: PCP Family Medicine; Visit Provider Internal Medicine Rheumatology
DX: Z51.81 Encounter for therapeutic drug level monitoring (principal); Z11.59 Encounter for screening for other viral diseases; D50.9 Iron deficiency anemia, unspecified; E55.9 Vitamin D deficiency, unspecified; E53.8 Deficiency of other specified B group vitamins; M19.90 Unspecified osteoarthritis, unspecified site; M79.10 Myalgia, unspecified site; R73.09 Other abnormal glucose; R53.83 Other fatigue; Z72.89 Other problems related to lifestyle
CPT/HCPCS: 36415; 73070; 73100; 73120; 73521; 73560; 73620; 80053; 82248; 82306; 82550; 82607; 82728; 82746; 83036; 83520; 83735; 84439; 84443; 84550; 85025; 85652; 86038; 86039; 86140; 86430; 86480; 86704; 86706; 86803; 87340; 87517; 87522

== ENCOUNTER → 2021-06-20 15:47 | Outpatient (CLI) | payer MEDICARE, MEDICAID, SELFPAY ==
--- NOTE | ~2021-06-20 | MM_ITS ---
EXAMINATION: MM scrn tay implant BI w vero HISTORY: Screening mammogram TECHNIQUE: Craniocaudal and mediolateral oblique 3-D tomosynthesis images with implant displacement a nd synthetic 2-D images were generated. Craniocaudal and mediolateral oblique views of the breasts wi thout implant displacement were obtained using full field digital mammography. CAD analysis was submi tted and interpreted. COMPARISON: 04/01/2020, 11/28/2018, 08/14/2017 BREAST PARENCHYMAL COMPOSITION: The breasts are heterogeneously dense, which may obscure small masses . FINDINGS: There is evidence of bilateral breast implant rupture. There is no evidence of suspicious m ass, calcification, or architectural distortion to suggest malignancy in either breast. There has bee n no suspicious interval change. IMPRESSION: 1. No mammographic evidence of malignancy. 2. Recommend routine screening mammography in one year. BI-RADS Category 1: Negative Reviewed, dictated and finalized at location A. 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
== END ==
PROVIDERS: PCP Family Medicine; Visit Provider Family Medicine
DX: Z12.31 Encounter for screening mammogram for malignant neoplasm of breast (principal)
CPT/HCPCS: 77063; 77067

== ENCOUNTER → 2021-07-01 01:07 | Outpatient (CLI) | payer MEDICARE, MEDICAID, SELFPAY ==
[2021-07-01 18:54] LABS: SARS-CoV-2 RNA PCR Negative
== END ==
PROVIDERS: PCP Family Medicine; Visit Provider Nurse Practitioner Family
DX: Z20.822 Contact with and (suspected) exposure to COVID-19 (principal)
CPT/HCPCS: C9803; U0003; U0005

== ENCOUNTER → 2021-09-27 08:06 | Outpatient (CLI) | payer MEDICARE, MEDICAID, SELFPAY ==
[2021-09-27 16:39] LABS: SARS-CoV-2 RNA PCR Negative
== END ==
PROVIDERS: PCP Family Medicine; Visit Provider Physician Assistant Medical
DX: R68.89 Other general symptoms and signs (principal); Z20.822 Contact with and (suspected) exposure to COVID-19
CPT/HCPCS: C9803; U0003; U0005

== ENCOUNTER 2021-10-27 14:42 | Outpatient (CLI) | payer MEDICARE, MEDICAID, SELFPAY ==
--- NOTE | ~2021-10-27 | XR_ITS ---
EXAMINATION: XR hand BI arthritis min 3V DATE: 10/27/2021 15:29 INDICATION: Arthritis. TECHNIQUE: 4 views of right hand and 4 views of left hand on 8 radiographs were obtained. COMPARISON: Hand radiographs 05/15/2021 FINDINGS: RIGHT HAND: There is dorsal tilt of lunate, consistent with dorsal intercalated segmental instability . There is dorsal subluxation of fifth distal phalanx with respect to the middle phalanx. There is se odin osteoarthritis of lunate-capitate joint. There is moderate osteoarthritis of triscaphe joint. Th ere is mild osteoarthritis of most of the metacarpophalangeal joints and interphalangeal joints. Ther e is moderate osteoarthritis of first interphalangeal joint and severe osteoarthritis of second, thir d, and fifth distal interphalangeal joints. LEFT HAND: There is ulnar angulation of second distal phalanx with respect to the middle phalanx. The re is dorsal subluxation of fifth distal phalanx with respect to the middle phalanx. No fracture. The re is mild osteoarthritis of first carpometacarpal joint and most of the metacarpophalangeal joints a nd interphalangeal joints. There is moderate osteoarthritis of first metacarpophalangeal joint and se odin osteoarthritis of first interphalangeal joint and second and fifth distal interphalangeal joints . IMPRESSION: 1. Right-sided dorsal intercalated segmental instability (DISI). 2. Polyarticular osteoarthritis. Reviewed, dictated and finalized at location A.
== END 2021-10-27 14:43 | disposition home or self-care (01) ==
PROVIDERS: PCP Family Medicine; Visit Provider Plastic Surgery
DX: M19.042 Primary osteoarthritis, left hand (principal); M19.041 Primary osteoarthritis, right hand; M25.341 Other instability, right hand
CPT/HCPCS: 73130

== ENCOUNTER 2021-10-27 14:50 | Outpatient (CLI) | payer MEDICARE, MEDICAID, SELFPAY ==
--- NOTE | ~2021-10-27 | XR_ITS ---
XR cervical spine min 6V DATE: 10/27/2021 15:30 INDICATION: Posterior neck pain. Surgery 7 years ago TECHNIQUE: Flexion and extension lateral views. AP, open-mouth, lateral and bilateral oblique views COMPARISON: None FINDINGS: Status post posterior surgical spine fusion by rods and screws at C2-T2. Status post anterior cervical spine surgical fusion at C5-C7. No cervical instability is noted on flexion and extension. No recent fracture or dislocation or monroe d facet or prevertebral soft tissue swelling is detected. Diffuse osteopenia. Left-sided transvenous cardiac pacemaker device IMPRESSION: Status post anterior and posterior cervical spine surgical fusion Reviewed, dictated and finalized at location A.
== END 2021-10-27 14:51 | disposition home or self-care (01) ==
PROVIDERS: PCP Family Medicine; Visit Provider Internal Medicine Rheumatology
DX: M54.2 Cervicalgia (principal); Z98.1 Arthrodesis status
CPT/HCPCS: 72052; 73130

== ENCOUNTER → 2021-11-28 08:07 | Outpatient (CLI) | payer MEDICARE, MEDICAID, SELFPAY ==
[2021-11-28 13:14] LABS: SARS-CoV-2 RNA PCR Negative
== END ==
PROVIDERS: PCP Family Medicine; Visit Provider Nurse Practitioner Family
DX: R68.89 Other general symptoms and signs (principal); Z20.822 Contact with and (suspected) exposure to COVID-19
CPT/HCPCS: C9803; U0003; U0005

== ENCOUNTER → 2022-01-02 00:32 | Outpatient (CLI) | payer MEDICARE, MEDICAID, SELFPAY ==
[2022-01-02 11:12] LABS: SARS-CoV-2 RNA PCR Negative
== END ==
PROVIDERS: PCP Family Medicine; Visit Provider Physician Assistant Medical
DX: R68.89 Other general symptoms and signs (principal); Z20.822 Contact with and (suspected) exposure to COVID-19
CPT/HCPCS: C9803; U0003; U0005

== ENCOUNTER 2022-02-09 13:37 | Emergency (ER) | payer MEDICARE, MEDICAID, SELFPAY ==
[2022-02-09 13:51] VITALS: BP 133/81; PULSE 116; RESP 16; TEMP 38.3; O2SAT 99
--- NOTE | 2022-02-09 14:50 | ED.FEMALEGU ---
HPI - Female Genitourinary General Chief complaint: Urogenital-Female Stated complaint: UTI Time Seen by Provider: 02/09/22 14:51 Source: patient Mode of arrival: ambulatory Limitations: no limitations History of Present Illness HPI Narrative: 71-year-old female presents with complaint of urinary frequency, urgency, dysuria for 2 days. Reports low-grade fever today. No back or flank pain. No nausea vomiting diarrhea. All systems reviewed and negative except as noted above. Related Data Home Medications Medication Instructions Recorded Confirmed ascorbate calcium (vitamin C) 500 PO 04/09/21 10/11/21 mg capsule calcium carbonate 600 mg-vitamin tablet 04/09/21 10/11/21 D3 5 mcg (200 unit) tablet methotrexate sodium 2.5 mg tablet 8 WEEKLY 04/09/21 10/11/21 multivit with minerals-iron 18 tablet PO 04/09/21 10/11/21 mg-folic ac 400 mcg-vit K 25 mcg tablet (Adults Multivitamin) pravastatin 40 mg tablet 04/09/21 10/11/21 Allergies Allergy/AdvReac Type Severity Reaction Status Date / Time metoclopramide Allergy Severe SEIZURES Verified 10/11/21 08:56 propoxyphene Allergy Severe NAUSEA Verified 10/11/21 08:56 Cephalosporins Allergy Mild SWELLING Verified 10/11/21 08:56 OF MOUTH AND THROAT Penicillins Allergy Mild SWELLING, Verified 10/11/21 08:56 HIVES prochlorperazine Allergy Mild SEIZURES Verified 10/11/21 08:56 promethazine Allergy Mild UNSURE Verified 10/11/21 08:56 capsaicin [From Zostrix] AdvReac Intermediate Joint Pain Verified 10/11/21 08:56 Review of Systems Review of Systems: CONSTITUTIONAL: Denies fever, chills, or sweats. EYES: Denies visual changes, redness, or discharge. ENT: Denies rhinorrhea, congestion, sore throat, or otalgia. CARDIOVASCULAR: Denies chest pain, palpitations, or edema. RESPIRATORY: Denies cough or dyspnea. GASTROINTESTINAL: Denies abdominal pain, nausea, vomiting, or diarrhea. GENITOURINARY: Reports dysuria, frequency, urgency. Denies hematuria. SKIN: Denies rash or itching. MUSCULOSKELETAL: Denies back pain, joint pain, or myalgia. NEUROLOGIC: Denies headache, numbness, or weakness. PSYCHIATRIC: Denies anxiety or depression. All other systems reviewed are negative, except as documented in HPI. 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 involvement Surgical History Surgical History H/O Spinal surgery History of augmentation mammoplasty History of knee replacement History of [place]ico fundoplication Family History Family History Father Family history of malignant neoplasm Parkinsons Mother Family history of diabetes mellitus in first degree relative Diabetes mellitus Grandparent Family history of tuberculosis Sibling Pulmonary fibrosis, unspecified Sibling COVID-19 Other Family history of kidney disease Social History Social History Second hand tobacco smoke exposure: No Alcohol intake: never Substance use: never Substance use type: does not use Additional living arrangements comments: son 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 There i
== END 2022-02-09 15:20 | disposition home or self-care (01) ==
PROVIDERS: Emergency Provider Nurse Practitioner Family; PCP Family Medicine
DX: N39.0 Urinary tract infection, site not specified (principal); M19.90 Unspecified osteoarthritis, unspecified site; K21.9 Gastro-esophageal reflux disease without esophagitis; M81.0 Age-related osteoporosis without current pathological fracture; Z95.0 Presence of cardiac pacemaker; M05.79 Rheumatoid arthritis with rheumatoid factor of multiple sites without organ or systems involvement; Z96.659 Presence of unspecified artificial knee joint
CPT/HCPCS: 81003; 87077; 87086; 87186; 99213; G0463

== ENCOUNTER 2022-05-01 12:55 | Outpatient (RCR) | payer MEDICARE, MEDICAID, SELFPAY ==
[2022-05-01 14:05] LABS: Basophils Percent Auto 0.3 % (0.2-1.2); Eosinophils Absolute Auto 0.1 K/mm3 (0-0.3); Eosinophils Percent Auto 1.2 % (0-4.4); Hematocrit 37.9 % (37.0-47.0); Hemoglobin 12.1 g/dL (12.0-15.0); Immature Granulocyte Absolute 0.02 K/mm3 (0.00-0.031); Immature Granulocyte Percent A 0.3 % (0-0.5); Lymphocytes Absolute Auto 2.21 K/mm3 (0.9-3.2); Lymphocytes Percent Auto 30.3 % (18.3-44.2); Mean Corpuscular HGB Conc 31.9 g/dl (32-36); Mean Corpuscular Volume 93.8 fl (80-100); Mean Platelet Volume 10.1 fl (7.4-10.4); Monocytes Absolute Auto 0.6 K/mm3 (0.1-0.6); Monocytes Percent Auto 7.7 % (2.6-8.5); Neutrophils Absolute Auto 4.4 K/mm3 (1.3-6.7); Neutrophils Percent Auto 60.2 % (45.5-73.1); Platelet Count Result 186 k/mm3 (150-375); Red Blood Count 4.04 M/mm3 (4.2-5.4); Red Cell Distribution Width 14.8 % (11.5-14.5); White Blood Count 7.3 K/mm3 (4.5-10.0)
[2022-05-01 14:16] LABS: Alanine Aminotransferase 22 U/L (6-35); Albumin Level 4.3 g/dL (3.5-5.1); Alkaline Phosphatase 77 U/L (38-126); Anion Gap 6 mmol/L (8-16); Aspartate Amino Transferase 37 U/L (14-36); Bilirubin,Total 0.5 mg/dL (0.2-1.3); Blood Urea Nitrogen 10 mg/dL (7-17); Calcium 8.9 mg/dL (8.4-10.2); Carbon Dioxide 29 mmol/L (22-30); Chloride 102 mmol/L (98-107); Estimated Glomerular Filt Rate > 60; Glucose 93 mg/dL (65-110); Potassium 4.3 mmol/L (3.4-5.0); Sodium 137 mmol/L (137-145)
== END 2022-07-30 23:59 | disposition home or self-care (01) ==
LOC: ANHLAB 12:55
PROVIDERS: PCP Family Medicine; Visit Provider Internal Medicine Rheumatology
DX: Z51.81 Encounter for therapeutic drug level monitoring (principal); Z79.899 Other long term (current) drug therapy
CPT/HCPCS: 36415; 80048; 80076; 85025

== ENCOUNTER 2022-07-27 10:53 | Outpatient (CLI) | payer MEDICARE, MEDICAID, SELFPAY ==
[2022-07-27 11:14] LABS: Hematocrit 39.4 % (37.0-47.0); Hemoglobin 12.6 g/dL (12.0-15.0); Mean Corpuscular Hemoglobin 29.5 pg (26-34); Mean Corpuscular Volume 92.3 fl (80-100); Mean Platelet Volume 10.1 fl (7.4-10.4); Platelet Count Result 205 k/mm3 (150-375); Red Blood Count 4.27 M/mm3 (4.2-5.4); Red Cell Distribution Width 15.4 % (11.5-14.5); White Blood Count 8.4 K/mm3 (4.5-10.0)
[2022-07-27 11:23] LABS: Alanine Aminotransferase 32 U/L (6-35); Albumin Level 4.1 g/dL (3.5-5.1); Alkaline Phosphatase 70 U/L (38-126); Anion Gap 4 mmol/L (8-16); Aspartate Amino Transferase 42 U/L (14-36); Bilirubin,Total 0.4 mg/dL (0.2-1.3); Blood Urea Nitrogen 19 mg/dL (7-17); Calcium 9.3 mg/dL (8.4-10.2); Carbon Dioxide 32 mmol/L (22-30); Chloride 99 mmol/L (98-107); Cholesterol 176 mg/dL (0-200); Estimated Glomerular Filt Rate > 60; Glucose 92 mg/dL (65-110); HDL Direct 52 mg/dL; Potassium 3.6 mmol/L (3.4-5.0); Sodium 135 mmol/L (137-145); Triglycerides 121 mg/dL (<150)
[2022-07-27 11:34] LABS: LDL Cholesterol Direct 83 mg/dL
== END 2022-07-27 10:54 | disposition home or self-care (01) ==
LOC: ANHLAB 10:55
PROVIDERS: PCP Family Medicine; Visit Provider Nurse Practitioner Family
DX: K21.9 Gastro-esophageal reflux disease without esophagitis (principal); E78.2 Mixed hyperlipidemia; M20.032 Swan-neck deformity of left finger(s); R79.89 Other specified abnormal findings of blood chemistry
CPT/HCPCS: 36415; 80053; 80061; 84443; 85027

== ENCOUNTER 2022-09-25 13:55 | Outpatient (CLI) | payer MEDICARE, MEDICAID, SELFPAY ==
--- NOTE | ~2022-09-25 | DEXA_ITS ---
Bone Density Report Name: BRANDON VALADEZ Age: 72 Sex: Female Ethnicity: White Date of : 1950 Indication: postmenopausal; screening for osteoporosis; height loss; hysterectomy; rheumatoid arthritis; Referring Provider: VALENTIN NUNN Study: Bone densitometry was performed. Exam Date: September 25, 2022 Accession number: [id number] Bone Density: Region BMD T-score Z-score Classification AP Spine(L2, L3, L4) 0.947 -1.2 1.1 Osteopenia Femoral Neck (Left) 0.608 -2.2 -0.3 Osteopenia Total Hip (Left) 0.771 -1.4 0.2 Osteopenia Femoral Neck (Right) 0.613 -2.1 -0.3 Osteopenia Total Hip (Right) 0.715 -1.9 -0.3 Osteopenia Total Hip Mean 0.743 -1.7 -0.1 Osteopenia World Health Organization criteria for BMD impression classify patients as: Normal (T-score at or above -1.0), Osteopenia (T-score between -1.0 and -2.5), or Osteoporosis (T-score at or below -2.5). 10-year Fracture Risk(1): Major Osteoporotic Fracture 17% Hip Fracture 4.0% Reported Risk Factors: [place] (), Neck BMD=0.608, BMI=27.1, rheumatoid arthritis (1) FRAX(R) Version 3.08. Fracture probability calculated for an untreated patient. Fracture probability may be lower if the patient has received treatment. Clinical Information Provided by Patient: Has rheumatoid arthritis Has used the following medications: Vitamin D, Calcium Has the following medical conditions: Hysterectomy Patient maximum height was 66 Menopause Age: 47 Onset of menses at age 16 Number of children 5 Impression: The patient has low bone mass, based on the Left Femoral Neck T-score. The patient has an estimated ten-year risk of hip fracture of 4% and an estimated ten-year risk of major fracture of 17%, based on the WHO FRAX algorithm. Discussion: BONE DENSITY IS LOW AT ONE OR MORE SKELETAL SITES. THE PATIENT'S BMD AND CLINICAL RISK FACTORS CONTRIBUTE TO THIS PATIENT'S INCREASED RISK OF FRACTURE. This patient's lowest T-score is low at one or more skeletal sites. It meets the World Health Organization's (WHO) criteria for ?low bone mass? (T-score between -1.0 and -2.5). The patient's 10-year risk of hip fracture as calculated by FRAX exceeds the threshold where pharmacological therapy is recommended by the National Osteoporosis Foundation (NOF). However, all treatment decisions require clinical judgment and consideration of individual patient factors, including patient preferences, comorbidities, previous drug use, risk factors not captured in the FRAX model (e.g., frailty, falls, vitamin D deficiency, increased bone turnover, interval significant decline in bone density) and possible under or overestimation of fracture risk by FRAX. The patient should follow a healthful lifestyle (good nutrition with adequate calcium and vitamin D, and appropriate
== END 2022-09-25 13:56 | disposition home or self-care (01) ==
PROVIDERS: PCP Family Medicine; Visit Provider Nurse Practitioner Family
DX: Z78.0 Asymptomatic menopausal state (principal); M85.89 Other specified disorders of bone density and structure, multiple sites
CPT/HCPCS: 77080

== ENCOUNTER → 2022-11-28 14:11 | Outpatient (CLI) | payer MEDICARE, MEDICAID, SELFPAY ==
--- NOTE | ~2022-11-28 | MM_ITS ---
EXAMINATION: MM scrn tay implant BI w vero HISTORY: Screening mammogram TECHNIQUE: Craniocaudal and mediolateral oblique 3-D tomosynthesis images with implant displacement a nd synthetic 2-D images were generated. Craniocaudal and mediolateral oblique views of the breasts wi thout implant displacement were obtained using full field digital mammography. CAD analysis was submi tted and interpreted. COMPARISON: 06/20/2021, 04/01/2020, 11/28/2018 BREAST PARENCHYMAL COMPOSITION: The breasts are heterogeneously dense, which may obscure small masses . FINDINGS: Again seen is evidence of bilateral breast implant rupture. There is no evidence of suspici ous mass, calcification, or architectural distortion to suggest malignancy in either breast. There meyer s been no suspicious interval change. IMPRESSION: 1. No mammographic evidence of malignancy. 2. Recommend routine screening mammography in one year. BI-RADS Category 1: Negative Reviewed, dictated and finalized at location A.
== END ==
PROVIDERS: PCP Family Medicine; Visit Provider Nurse Practitioner Family
DX: Z12.31 Encounter for screening mammogram for malignant neoplasm of breast (principal)
CPT/HCPCS: 77063; 77067

== ENCOUNTER 2023-01-09 14:49 | Outpatient (CLI) | payer MEDICARE, MEDICAID, SELFPAY ==
[2023-01-10 12:29] LABS: Anion Gap 6 mmol/L (8-16); Blood Urea Nitrogen 12 mg/dL (7-17); Calcium 8.9 mg/dL (8.4-10.2); Carbon Dioxide 32 mmol/L (22-30); Chloride 102 mmol/L (98-107); Estimated Glomerular Filt Rate > 60; Glucose 73 mg/dL (65-110); Sodium 140 mmol/L (137-145)
== END 2023-01-09 14:50 | disposition home or self-care (01) ==
PROVIDERS: PCP Family Medicine; Visit Provider Internal Medicine Cardiovascular Disease
DX: E87.5 Hyperkalemia (principal); R94.2 Abnormal results of pulmonary function studies; I44.7 Left bundle-branch block, unspecified; I42.9 Cardiomyopathy, unspecified; I34.0 Nonrheumatic mitral (valve) insufficiency; D50.9 Iron deficiency anemia, unspecified; Z95.810 Presence of automatic (implantable) cardiac defibrillator; Z20.89 Contact with and (suspected) exposure to other communicable diseases
CPT/HCPCS: 36415; 80048

== ENCOUNTER 2023-04-03 13:00 | Outpatient (CLI) | payer MEDICARE, MEDICAID, SELFPAY ==
[2023-04-03 13:47] LABS: Basophils Percent Auto 0.3 % (0.2-1.2); Eosinophils Absolute Auto 0.1 K/mm3 (0-0.3); Eosinophils Percent Auto 1.7 % (0-4.4); Hematocrit 41.1 % (37.0-47.0); Immature Granulocyte Absolute 0.02 K/mm3 (0.00-0.031); Immature Granulocyte Percent A 0.3 % (0-0.5); Lymphocytes Absolute Auto 2.19 K/mm3 (0.9-3.2); Lymphocytes Percent Auto 31.6 % (18.3-44.2); Mean Corpuscular HGB Conc 31.6 g/dl (32-36); Mean Corpuscular Hemoglobin 29.8 pg (26-34); Mean Corpuscular Volume 94.3 fl (80-100); Mean Platelet Volume 10.2 fl (7.4-10.4); Monocytes Absolute Auto 0.6 K/mm3 (0.1-0.6); Monocytes Percent Auto 8.2 % (2.6-8.5); Neutrophils Percent Auto 57.9 % (45.5-73.1); Platelet Count Result 205 k/mm3 (150-375); Red Blood Count 4.36 M/mm3 (4.2-5.4); Red Cell Distribution Width 13.9 % (11.5-14.5); White Blood Count 6.9 K/mm3 (4.5-10.0)
[2023-04-03 13:57] LABS: Anion Gap 7 mmol/L (8-16); Blood Urea Nitrogen 13 mg/dL (7-17); Calcium 8.8 mg/dL (8.4-10.2); Carbon Dioxide 31 mmol/L (22-30); Chloride 101 mmol/L (98-107); Estimated Glomerular Filt Rate > 60; Glucose 90 mg/dL (65-110); Potassium 4.1 mmol/L (3.4-5.0); Sodium 139 mmol/L (137-145)
[2023-04-10 14:12] LABS: ALT 14 U/L (6-29); Alpha-2-Macroglobulin 181 mg/dL (106-279); Apolipoprotein A1 149 mg/dL (101-198); Fibrosis Stage F0; GGT 9 U/L (3-65); Haptoglobin 170 mg/dL (43-212); Necroinflammat Act Grade A0; Total Bilirubin 0.3 mg/dL (0.2-1.2)
== END 2023-04-03 13:01 | disposition home or self-care (01) ==
LOC: ANHLAB 13:04
PROVIDERS: PCP Family Medicine; Visit Provider Internal Medicine Rheumatology
DX: Z51.81 Encounter for therapeutic drug level monitoring (principal); Z79.899 Other long term (current) drug therapy
CPT/HCPCS: 36415; 80048; 81596; 85025

== ENCOUNTER 2023-05-18 11:56 | Emergency (ER) | payer MEDICARE, MEDICAID, SELFPAY ==
--- NOTE | 2023-05-18 12:02 | ED.URI ---
HPI - URI/Sore Throat General Chief Complaint: Upper Respiratory Infection Stated Complaint: Cough Time Seen by Provider: 05/18/23 12:28 Source: patient and RN notes reviewed Mode of arrival: ambulatory Limitations: no limitations History of Present Illness HPI Narrative: 73-year-old female presents with concern for 11 day history of cough. She reports she has a persistent cough that is not improving despite her other symptoms improving after 11 days. She has not taken any cough medicine. She denies fever, chills, sweats. She reports body aches at the start of her symptoms that since resolved. MD elicited complaint: cough Related Data Home Medications Medication Instructions Recorded Confirmed ascorbate calcium (vitamin C) 500 500 mg PO DAILY 04/09/21 05/18/23 mg capsule calcium carbonate 600 mg-vitamin 1 tablet PO DAILY 04/09/21 05/18/23 D3 5 mcg (200 unit) tablet methotrexate sodium 2.5 mg tablet 8 mg PO WEEKLY 04/09/21 05/18/23 multivit with minerals-iron 18 1 tablet PO DAILY 04/09/21 05/18/23 mg-folic ac 400 mcg-vit K 25 mcg tablet (Adults Multivitamin) pravastatin 40 mg tablet 40 mg PO DAILY 04/29/23 05/18/23 abatacept 125 mg/mL subcutaneous 125 mg subcut WEEKLY 05/18/23 05/18/23 auto-injector (Orencia ClickJect) Allergies Allergy/AdvReac Type Severity Reaction Status Date / Time metoclopramide Allergy Severe SEIZURES Verified 05/18/23 12:28 propoxyphene Allergy Severe NAUSEA Verified 05/18/23 12:28 Cephalosporins Allergy Mild SWELLING Verified 05/18/23 12:28 OF MOUTH AND THROAT Penicillins Allergy Mild SWELLING, Verified 05/18/23 12:28 HIVES prochlorperazine Allergy Mild SEIZURES Verified 05/18/23 12:28 promethazine Allergy Mild UNSURE Verified 05/18/23 12:28 capsaicin [From Zostrix] AdvReac Intermediate Joint Pain Verified 05/18/23 12:28 Review of Systems Review of Systems: CONSTITUTIONAL: Reports malaise. Denies chills, sweats, or fever. EYES: Denies visual changes, redness, or discharge. ENT: Denies rhinorrhea, congestion, sinus pain, otalgia and sore throat. CARDIOVASCULAR: Denies chest pain, palpitations, or edema. RESPIRATORY: Reports persistent cough. Denies dyspnea. GASTROINTESTINAL: Denies abdominal pain, nausea, vomiting, diarrhea SKIN: Denies rash or itching. MUSCULOSKELETAL: Reports myalgia. NEUROLOGIC: Denies headache. All systems reviewed & are unremarkable except as noted in HPI and below PMFSH Past Medical History Medical History Anxiety Arthritis BMI 23.0-23.9, adult Bulging lumbar disc Bundle branch block Depression Encounter for screening for other viral diseases Fluid level behind tympanic membrane of left ear GERD without esophagitis Osteopenia Pacemaker Rheumatoid arthritis with rheumatoid factor of multiple sites without organ or systems involvement Unspecified hearing loss Surgical History Surgical History H/O Spinal surgery History of augmentation mammoplasty History of knee replacement History of [place] fundoplication Family History Family History Father Family history of malignant neoplasm Parkinsons Mother Family history of diabetes mellitus in first degree relative Diabetes mellitus Grandparent Family history of tuberculosis Sibling Pulmonary fibrosis, unspecified Sibling COVID-19 Other Family history of kidney disease Social History Social History Social History: Caffeine-none Smoking status: Never smoker Second hand tobacco smoke exposure: No Alcohol intake: never Substance use: never Substance use type: does not use Lack of Transportation: No Lack of Food: Never True Current Housing[facility]
[2023-05-18 12:13] VITALS: BP 137/103; PULSE 87; RESP 16; TEMP 37.2; O2SAT 99
== END 2023-05-18 12:38 | disposition home or self-care (01) ==
PROVIDERS: Emergency Provider Nurse Practitioner; PCP Family Medicine
DX: J40 Bronchitis, not specified as acute or chronic (principal); M19.90 Unspecified osteoarthritis, unspecified site; K21.9 Gastro-esophageal reflux disease without esophagitis; M85.80 Other specified disorders of bone density and structure, unspecified site; M05.79 Rheumatoid arthritis with rheumatoid factor of multiple sites without organ or systems involvement; Z95.0 Presence of cardiac pacemaker
CPT/HCPCS: 99213; G0463

== ENCOUNTER 2023-06-03 15:05 | Outpatient (CLI) | payer MEDICARE, MEDICAID, SELFPAY ==
--- NOTE | ~2023-06-03 | XR_ITS ---
Clinical Indication: Chronic cough PA and lateral views of the chest: Comparison: 04/14/2021 Findings: The lungs are clear, without evidence of focal consolidation or pleural effusion. Cardiome diastinal silhouette is stable, with pacemaker device. Cervicothoracic spinal fixation hardware again noted. Endovascular coils noted in the epigastric region. Impression: Clear lungs. Reviewed, dictated and finalized at location . 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
== END 2023-06-03 15:06 | disposition home or self-care (01) ==
LOC: ANHIMG 15:12
PROVIDERS: PCP Family Medicine; Visit Provider Physician Assistant Medical
DX: R05.3 Chronic cough (principal)
CPT/HCPCS: 71046

== ENCOUNTER 2023-06-24 12:52 | Outpatient (CLI) | payer MEDICARE, MEDICAID, SELFPAY | END 2023-06-24 12:53 | disposition home or self-care (01) | LOC: ANHAUDIO 12:53 | PROVIDERS: PCP Family Medicine; Visit Provider Otolaryngology | DX: H90.42 Sensorineural hearing loss, unilateral, left ear, with unrestricted hearing on the contralateral side (principal) | CPT/HCPCS: 92557; 92567 ==

== ENCOUNTER 2023-12-20 14:27 | Outpatient (RCR) | payer MEDICARE, MEDICAID, SELFPAY ==
[2023-12-20 14:51] LABS: Basophils Percent Auto 0.6 % (0.2-1.2); Eosinophils Absolute Auto 0.1 K/mm3 (0-0.3); Hematocrit 40.6 % (37.0-47.0); Hemoglobin 13.2 g/dL (12.0-15.0); Immature Granulocyte Absolute 0.01 K/mm3 (0.00-0.031); Immature Granulocyte Percent A 0.2 % (0-0.5); Lymphocytes Absolute Auto 2.28 K/mm3 (0.9-3.2); Lymphocytes Percent Auto 34.5 % (18.3-44.2); Mean Corpuscular HGB Conc 32.5 g/dl (32-36); Mean Corpuscular Hemoglobin 30.3 pg (26-34); Mean Corpuscular Volume 93.3 fl (80-100); Mean Platelet Volume 10.1 fl (7.4-10.4); Monocytes Absolute Auto 0.6 K/mm3 (0.1-0.6); Monocytes Percent Auto 8.3 % (2.6-8.5); Neutrophils Absolute Auto 3.6 K/mm3 (1.3-6.7); Neutrophils Percent Auto 54.4 % (45.5-73.1); Platelet Count Result 177 k/mm3 (150-375); Red Blood Count 4.35 M/mm3 (4.2-5.4); Red Cell Distribution Width 14.3 % (11.5-14.5); White Blood Count 6.6 K/mm3 (4.5-10.0)
[2023-12-20 15:04] LABS: Alanine Aminotransferase 23 U/L (6-35); Albumin Level 4.2 g/dL (3.5-5.1); Alkaline Phosphatase 62 U/L (38-126); Anion Gap 6 mmol/L (4-12); Aspartate Amino Transferase 39 U/L (14-36); Bilirubin,Total 0.6 mg/dL (0.2-1.3); Blood Urea Nitrogen 15 mg/dL (7-17); Carbon Dioxide 29 mmol/L (22-30); Chloride 103 mmol/L (98-107); Estimated Glomerular Filt Rate > 60; Glucose 92 mg/dL (65-110); Potassium 4.1 mmol/L (3.4-5.0); Sodium 138 mmol/L (137-145)
== END 2024-03-19 23:59 | disposition home or self-care (01) ==
LOC: ANHLAB 14:27
PROVIDERS: PCP Family Medicine; Visit Provider Internal Medicine Rheumatology
DX: Z51.81 Encounter for therapeutic drug level monitoring (principal); Z79.01 Long term (current) use of anticoagulants
CPT/HCPCS: 36415; 80048; 80076; 85025

== ENCOUNTER 2024-01-03 14:16 | Outpatient (CLI) | payer MEDICARE, MEDICAID, SELFPAY ==
--- NOTE | ~2024-01-03 | MM_ITS ---
EXAMINATION: MM scrn tay implant BI w vero HISTORY: Screening mammogram TECHNIQUE: Craniocaudal and mediolateral oblique 3-D tomosynthesis images with implant displacement a nd synthetic 2-D images were generated. Craniocaudal and mediolateral oblique views of the breasts wi thout implant displacement were obtained using full field digital mammography. CAD analysis was submi tted and interpreted. COMPARISON: Comparison to multiple prior studies sequentially, with oldest reviewed study dated 04/28. BREAST PARENCHYMAL COMPOSITION: Not dense: There are scattered areas of fibroglandular density. FINDINGS: There is no evidence of suspicious mass, calcification, or architectural distortion to sugg est malignancy in either breast. There has been no suspicious interval change. IMPRESSION: 1. No mammographic evidence of malignancy. 2. Recommend routine screening mammography in one year. BI-RADS Category 1: Negative Reviewed, dictated and finalized at location B.
== END 2024-01-03 14:17 ==
PROVIDERS: PCP Family Medicine; Visit Provider Family Medicine
DX: Z12.31 Encounter for screening mammogram for malignant neoplasm of breast (principal)
CPT/HCPCS: 77063; 77067

== ENCOUNTER 2024-01-09 14:52 | Outpatient (CLI) | payer MEDICARE, MEDICAID, SELFPAY ==
[2024-01-09 16:41] LABS: Basophils Percent Auto 0.5 % (0.2-1.2); Eosinophils Absolute Auto 0.2 K/mm3 (0-0.3); Eosinophils Percent Auto 2.1 % (0-4.4); Hematocrit 41.7 % (37.0-47.0); Hemoglobin 13.5 g/dL (12.0-15.0); Immature Granulocyte Absolute 0.02 K/mm3 (0.00-0.031); Immature Granulocyte Percent A 0.3 % (0-0.5); Lymphocytes Absolute Auto 2.57 K/mm3 (0.9-3.2); Lymphocytes Percent Auto 35.2 % (18.3-44.2); Mean Corpuscular HGB Conc 32.4 g/dl (32-36); Mean Corpuscular Hemoglobin 30.4 pg (26-34); Mean Corpuscular Volume 93.9 fl (80-100); Mean Platelet Volume 10.5 fl (7.4-10.4); Monocytes Absolute Auto 0.6 K/mm3 (0.1-0.6); Monocytes Percent Auto 8.2 % (2.6-8.5); Neutrophils Absolute Auto 3.9 K/mm3 (1.3-6.7); Neutrophils Percent Auto 53.7 % (45.5-73.1); Platelet Count Result 198 k/mm3 (150-375); Red Blood Count 4.44 M/mm3 (4.2-5.4); Red Cell Distribution Width 14.4 % (11.5-14.5); White Blood Count 7.3 K/mm3 (4.5-10.0)
[2024-01-09 16:54] LABS: Alanine Aminotransferase 25 U/L (6-35); Albumin Level 4.4 g/dL (3.5-5.1); Alkaline Phosphatase 68 U/L (38-126); Amylase 58 U/L (30-110); Anion Gap 7 mmol/L (4-12); Aspartate Amino Transferase 39 U/L (14-36); Bilirubin,Total 0.5 mg/dL (0.2-1.3); Blood Urea Nitrogen 12 mg/dL (7-17); Calcium 9.4 mg/dL (8.4-10.2); Carbon Dioxide 29 mmol/L (22-30); Chloride 104 mmol/L (98-107); Estimated Glomerular Filt Rate > 60; Glucose 86 mg/dL (65-110); Lipase 61 U/L (23-300); Potassium 4.1 mmol/L (3.4-5.0); Sodium 140 mmol/L (137-145)
[2024-01-09 17:25] LABS: Iron 84 ug/dL (37-170)
[2024-01-09 17:28] LABS: Creatinine Urine 73.2 mg/dL
[2024-01-09 17:34] LABS: MALB Creatinine Ratio < 8.2 mg/g (0-30); Microalbumin Urine Random < 6.0 mg/L (0-16.7)
[2024-01-09 17:35] LABS: Percent Iron Saturation 26 % (20-50)
== END 2024-01-09 14:53 | disposition home or self-care (01) ==
PROVIDERS: PCP Family Medicine; Visit Provider Internal Medicine Cardiovascular Disease
DX: E87.5 Hyperkalemia (principal); R94.2 Abnormal results of pulmonary function studies; I44.7 Left bundle-branch block, unspecified; I42.9 Cardiomyopathy, unspecified; I38 Endocarditis, valve unspecified; D50.9 Iron deficiency anemia, unspecified; Z20.89 Contact with and (suspected) exposure to other communicable diseases; Z95.810 Presence of automatic (implantable) cardiac defibrillator
CPT/HCPCS: 36415; 80053; 82043; 82150; 82728; 83540; 83550; 83690; 85025

== ENCOUNTER 2024-05-06 13:46 | Emergency (ER) | payer MEDICARE, MEDICAID, SELFPAY ==
[2024-05-06] VITALS (8 sets, daily range): BP systolic 130–133; BP diastolic 78–88; PULSE 76–92; RESP 16–18; TEMP 36.5–36.7; O2SAT 67–100
--- NOTE | ~2024-05-06 | CT_ITS ---
EXAMINATION: CT brain wo con DATE: 05/06/2024 15:02 INDICATION: Dizziness. Headache. TECHNIQUE: Computed tomography (CT) of the head was performed without intravenous contrast. The mA wa s adjusted according to patient size. Iterative reconstruction technique was employed. The dose-lengt h product was 605.33 mGy-cm. COMPARISON: Head CT 05/04/2013 FINDINGS: There are scattered areas of low attenuation in the cerebral white matter. There is no intr acranial hemorrhage, acute infarction, or abnormal intracranial mass lesion. The ventricles are francisco l in size. The orbits are normal. There is mild mucosal thickening in the paranasal sinuses. The mast oid air cells are normal. IMPRESSION: 1. Mild nonspecific cerebral white matter disease, which likely represents chronic small vessel ische rose mary disease. Reviewed, dictated and finalized at location A. IMPRESSION: 1. Mild nonspecific cerebral white matter disease, which likely represents ink grinder tyrone small vessel ischemic disease.
--- NOTE | 2024-05-06 13:48 | ECG_ITS ---
Test Date: 2024-05-06 14:10:05 Measurements Intervals [place] Rate: 87 P: 33 NE: 154 QRS: -45 QRSD: 130 T: 125 QT: 382 QTc: 461 Interpretive Statements SINUS RHYTHM WITH ATRIAL SENSING AND ELECTRONIC VENTRICULAR PACEMAKER ABNORMAL RHYTHM ECG No previous ECG available for comparison Electronically Signed On 05-07-2024 07:48:43 CDT by Socrates Gomez M.D.
--- NOTE | 2024-05-06 14:08 | ED.GENADULT ---
HPI - General Adult General Chief complaint: Nausea/Vomiting/Diarrhea <MEHNAZ Snider Last Filed: 05/06/24 14:14> Stated complaint: dizziness, n/v x4days <MEHNAZ Snider Last Filed: 05/06/24 14:14> Time Seen by Provider: 05/06/24 14:08 <MEHNAZ Snider Last Filed: 05/06/24 14:14> Focused HPI: Patient is a 74 y/o female who presents to the ED with c/o dizziness and N/V. Patient reports having a dizzy feeling in the back of her head for the past 4 days. Dizziness is intermittent, worse with movement, bending over, turning head. Described as a room spinning sensation. Does have hx of vertigo but states this feels different. Dizziness causes her to be nauseous. Has had multiple episodes of emesis. States she did have a OSBORNE 5 days ago, but this has since resolved. Denies vision changes. Denies focal weakness, numbness. Denies CP/SOB. GENERAL: Elderly but well appearing, well-nourished, and in no acute distress. HEAD: Normocephalic, atraumatic. EYES: PERRL/EOMI, conjunctiva clear. No significant nystagmus. CHEST: Clear to auscultation. ?No respiratory distress. HEART: Regular rate and rhythm.? NEURO: ?Alert and oriented x3. No gross focal deficits. Equal utility appraiser strength bilaterally. Strength 5/5 in upper and lower extremities marilee. No pronator drift. Patient screened in triage and initial orders placed.? ?Additional care and disposition to be based upon?diagnostic testing and treatment. <MEHNAZ Snider Last Filed: 05/06/24 14:14> Source: patient <MEHNAZ Snider Last Filed: 05/06/24 14:14> Mode of arrival: ambulatory <MEHNAZ Snider Last Filed: 05/06/24 14:14> Limitations: no limitations <MEHNAZ Snider Last Filed: 05/06/24 14:14> History of Present Illness HPI narrative: Agree with HPI <Yovany Urias MD - Last Filed: 05/06/24 18:21> Related Data Home medications: Home Medications Medication Instructions Recorded Confirmed ascorbate calcium (vitamin C) 500 500 mg PO DAILY 04/09/21 02/17/24 mg capsule calcium 600 mg (as 1 tablet PO DAILY 04/09/21 02/17/24 carbonate)-vitamin D3 5 mcg (200 unit) tablet methotrexate sodium 2.5 mg tablet 8 mg PO WEEKLY 04/09/21 02/17/24 multivit with minerals-iron 18 1 tablet PO DAILY 04/09/21 02/17/24 mg-folic ac 400 mcg-vit K 25 mcg tablet (Adults Multivitamin) pravastatin 40 mg tablet 40 mg PO DAILY 04/29/23 02/17/24 abatacept 125 mg/mL subcutaneous 125 mg subcut WEEKLY 05/18/23 02/17/24 auto-injector (Orencia ClickJect) hydroxychloroquine 200 mg tablet 100 mg PO BID 12/24/23 02/17/24 <Jaz Meyers PA-C - Last Filed: 05/06/24 14:14> Allergies/adverse reactions: Allergies Allergy/AdvReac Type Severity Reaction Status Date / Time metoclopramide Allergy Severe SEIZURES Verified 02/17/24 10:46 propoxyphene Allergy Severe NAUSEA Verified 02/17/24 10:46 Cephalosporins Allergy Mild SWELLING Verified 02/17/24 10:46 OF MOUTH AND THROAT Penicillins Allergy Mild SWELLING, Verified 02/17/24 10:46 HIVES prochlorperazine Allergy Mild SEIZURES Verified 02/17/24 10:46 promethazine Allergy Mild UNSURE Verified 02/17/24 10:46 capsaicin [From Zostrix] AdvReac Intermediate Joint Pain Verified 02/17/24 10:46 <Jaz Meyers PA-C - Last Filed: 05/06/24 14:14> Review of Systems Review of Systems: All systems reviewed & are unremarkable except as noted in HPI and below <Yovany Urias MD - Last Filed: 05/06/24 18:21> Constitutional: Constitutional: Reports chills, Reports fatigue and Denies fever(s) <Yovany Urias MD - Last Filed: 05/06/24 18:21> ENT: Reports dizziness, Denies nasal congestion and Denies sore throat <Yovany Urias MD - Last Filed: 05/06/24 18:21> Cardiovascular: Cardiovascular: Reports no additional cardiovascular complaints <Yovany Urias MD - Last Filed: 05/06/24 18:
[2024-05-06 14:23] LABS: Hemoglobin 15.7 g/dL (12.0-15.0); Mean Corpuscular HGB Conc 33.4 g/dl (32-36); Mean Corpuscular Volume 92.7 fl (80-100); Mean Platelet Volume 9.9 fl (7.4-10.4); Platelet Count Result 147 k/mm3 (150-375); Red Blood Count 5.07 M/mm3 (4.2-5.4); White Blood Count 3.6 K/mm3 (4.5-10.0)
[2024-05-06 14:36] LABS: Alanine Aminotransferase 20 U/L (6-35); Albumin Level 4.4 g/dL (3.5-5.1); Alkaline Phosphatase 65 U/L (38-126); Anion Gap 5 mmol/L (4-12); Aspartate Amino Transferase 42 U/L (14-36); Bilirubin,Total 0.5 mg/dL (0.2-1.3); Blood Urea Nitrogen 11 mg/dL (7-17); Calcium 8.5 mg/dL (8.4-10.2); Carbon Dioxide 30 mmol/L (22-30); Chloride 96 mmol/L (98-107); Estimated CRCL calculation 49 ml/min; Estimated Glomerular Filt Rate > 60; Glucose 100 mg/dL (65-110); Lipase 120 U/L (23-300); Magnesium 2.1 mg/dL (1.6-2.3); Potassium 3.6 mmol/L (3.4-5.0); Sodium 131 mmol/L (137-145)
[2024-05-06 15:06] LABS: Lymphocytes Absolute Manual 1.29 K/mm3 (1.1-4.5); Monocytes Absolute Manual 0.79 K/mm3 (0.1-0.90); Monocytes Percent Manual 22 % (3-9); Neutrophils Percent Manual 42 % (46-73); Platelet Estimate Slightly Decreased (Adequate); Schistocytes None Seen; Total Cells Counted 100
[2024-05-06 15:18] LABS: Add Urine Microscopic? YES; Appearance Urine Clear (Clear); Bacteria Urine 4+ /hpf; Bilirubin Urine Negative (Negative); Blood Urine Negative (Negative); Color Urine Yellow (Yellow); Glucose Urine UA Negative (Negative); Ketones Urine 1+ mg/dL (Negative); Leukocyte Esterase Ur 2+ LEU/UL (Negative); Nitrate Urine Positive (Negative); Non Pathogenic Casts 0-2; Protein Urine 1+ mg/dL (Negative); RBC Urine 0-2 /hpf (0-2); Specific Grav Ur 1.019 (1.001-1.035); Squamous Epithelial Cell Urine None Seen /hpf (Few); Urobilinogen Urine 0.2 mg/dL (<2.0); WBC Urine 21-50 /hpf (0-3)
[2024-05-06] MEDS: SODIUM CHLORIDE 0.9% IV 1,000 ML 999 ML IV CONT ×2 (16:13→16:14)
[2024-05-06] MEDS: ONDANSETRON INJ 4 MG/2 ML VIAL IV PUSH (16:13)
[2024-05-06] MEDS: MECLIZINE HCL 25 MG TABLET PO (16:13)
[2024-05-06 17:44] LABS: Influenza A QL RT-PCR Negative (Negative); Influenza B QL RT-PCR Negative (Negative); RSV RNA, RT-PCR Negative (Negative); SARS-CoV-2 RNA PCR Positive (Negative)
== END 2024-05-06 18:43 | disposition home or self-care (01) ==
PROVIDERS: Emergency Provider Emergency Medicine; PCP Family Medicine
DX: U07.1 COVID-19 (principal); N39.0 Urinary tract infection, site not specified; K21.9 Gastro-esophageal reflux disease without esophagitis; M19.90 Unspecified osteoarthritis, unspecified site; M05.79 Rheumatoid arthritis with rheumatoid factor of multiple sites without organ or systems involvement; M85.80 Other specified disorders of bone density and structure, unspecified site; Z95.0 Presence of cardiac pacemaker; Z96.659 Presence of unspecified artificial knee joint; Z79.620 Long term (current) use of immunosuppressive biologic; R90.82 White matter disease, unspecified
CPT/HCPCS: 36415; 70450; 80053; 81001; 83690; 83735; 85025; 87077; 87086; 87186; 87637; 93005; 96361; 96374; 99284; A9270; J2405; J7030

== ENCOUNTER 2024-11-25 00:48 | Day surgery (SDC) | payer MEDICARE, MEDICAID, SELFPAY ==
[2024-11-18 10:57] VITALS: BMI 25.8
--- OUTSIDE RECORDS SUMMARY | 2024-11-25 00:51 | XMS_ITS | Clinical Summary ---
Author Organization [facility] Address [address] [address] Phone Care Team Providers Care Garbage Pick Up Man Name Role Phone Primitivo Merchant MD Primary Care Provider [phone] Social History Tobacco Use Types Packs/Day Years Used Date Smoking Tobacco: Never Assessed Comments Unknown Sex and Gender Information Value Date Recorded Sex Assigned at Not on file Legal Sex Female 10:28 PM CDT Gender Identity Not on file Sexual Orientation Not on file Plan of Treatment Health Maintenance Due Date Last Done Comments DEXA Bone Density 1950 Hepatitis C Virus (HCV) Screening 1950 TdaP Immunization 1950 Cologuard 2001 Immunochemical Fecal Occult Blood 2001 Mammogram 2001 Pneumococcal Immunization (5 0+ years) (1 of 1 - PCV) 2001 Zoster Immunization (1 of 2) 2001 Influenza Immunization (#1) 2024 SARS-COV-2 Immunization ( - season) 2024 Respiratory Syncytial Virus (RSV) Immunization (Adult) (1 - 1-dose 75+ series) 2026 Colonoscopy 07/03/2028 07/03/2018 Colorectal Cancer Screening 07/03/2028 07/03/2018 Hepatitis B Immunization Aged Out No longer eligible based on patient's age to complete this topic Meningococcal Immunization (ACWY) Aged Out No longer eligible based on patient's age to complete this topic Rotavirus Immunization Aged Out No lo nger eligible based on patient's age to complete this topic Procedures Procedure Name Priority Date/Time Associated Diagnosis Comments HM COLONOSCOPY Routine 07/03/2018 from Last 3 Months or Most Recently Relevant to Health Maintenance Results * HM COLONOSCOPY (07/03/2018) Mo Sanchez DO PROCEDURE/MINOR SURGICAL ORDERA BLES Final Result from Last 3 Months or Most Recently Relevant to Health Maintenance Insurance MEDICAID [place] Care Teams Garbage Pick Up Man Relationship Specialty Start Date End Date Primitivo Merchant MD [address] [address] PCP - General Family Medicine 07/05/18
--- OUTSIDE RECORDS SUMMARY | 2024-11-25 00:51 | XMS_ITS | Referral Summary ---
Author Organization [facility] Address [address] [place] [address] Care Team Providers Care Manufacturing Scheduler Name Role Phone Primitivo Merchant MD Primary Care Provider [phone] Allergies Active Allergy Reactions Criticality Noted Date Comments Cephalexin Itching,Other (See comments) Low Reaction: FACE SWELLING Codeine Nausea only Low Docosanol Unknown Latex Itching,Other (See comments) Medium 09/06/2016 Red hands and itching after contact, Reaction: Burning Sensation Losartan Other (See comments) Low 05/20/2019 Metoclopramide Rash Medium Other Unknown 08/29/2016 Penicillins Swelling,Other (See comments) Medium Reaction: FACE SWELLING Prochlorperazine Other (See comments) Low convulsion Spironolactone Other (See comments) Low 05/20/2019 Terfenadine Unknown Medications cycloSPORINE (RESTASIS) 0.05 % ophthalmic emulsion Take as directed 0 0 9 Active Additional Information Patient taking differently: 1 drop each eye Every 12 hours, Reported on 01/09/2022 venlafaxine XR (EFFEXOR XR) 150 mg 24 hr capsule take 1 capsule by oral route every day 90 3 4 Active Additional Information Patient taking differently:150 mgoral Daily after lunch, Informant: Self, Reported on 01/09/2022 ascorbic acid (VITAMIN C) 500 mg tablet,chewableI ndications:suppl ement Take 500 mg by mouth daily after lunch Active pravastatin (PRAVACHOL) 40 mg tabletIndication s:hyperlipidemia Take 40 mg by mouth daily after lunch 3 9 Active carvedilol (COREG) 3.125 mg tablet Take 3.125 mg by mouth 2 (two) times a day 3 9 Active cyclobenzaprine (FLEXERIL) 10 mg tablet Take 10 mg by mouth 3 (three) times a day as needed for muscle spasms 0 Active meloxicam (MOBIC) 15 mg tabletIndication s:Rheumatoid Arthritis Take 1 tablet (15 mg total) by mouth daily 30 tablet 4 0 Active Additional Information Patient taking differently:15 mg oralDaily PRN, Indications: Rheumatoid Arthritis, Informant: Self, Reported on 01/09/2022 gabapentin (NEURONTIN) 300 mg capsule TAKE 1 CAPSULE BY MOUTH THREE TIMES DAILY 180 capsule 1 Active Additional Information Patient taking differently: 300 mg oral 3 times daily, Informant: Self, Reported on 01/09/2022 HYDROcodone-acet aminophen (NORCO) 5-325 mg per tablet Take 1 tablet by mouth every 6 (six) hours as needed for pain 1 Active multivitamin capsuleIndicatio ns:Vitamin Deficiency Prevention Take 1 capsule by mouth daily after lunch Active calcium carbonate-vitami n D3 1,500 mg (600mg elemental) -800 unit per tabletIndication s:Prevention of Vitamin D Deficiency Take 1 tablet by mouth daily after lunch Active zinc 50 mg tabletIndication s:supplement Take 1 tablet by mouth daily after lunch Active methotrexate 2.5 mg tabletIndication s:Rheumatoid Arthritis Take 10 tablets (25 mg total) by mouth every 7 days 120 tablet 1 Active Additional Information Patient taking differently:25 mg oral Every 7 days,On Saturday, Indications: Rheumatoid Arthritis, Informant: Self, Reported on 01/09/2022 folic acid (FOLVITE) 1 mg tabletIndication s:Rheumatoid arthritis, involving unspecified site, unspecified whether rheumatoid factor present (HCC) Take 1 tablet (1,000 mcg total) by mouth daily 90 tablet 3 1 Active Additional Information Patient taking differently:1,000 mcg oralDaily after lunch, Informant: Self, Reported on 01/09/2022 hydrOXYchloroQUI NE (PLAQUENIL) 200 mg tabletIndication s:Rheumatoid Arthritis Take 1 tablet (200 mg total) by mouth daily 30 tablet 1 Active Additional Information Patient taking differently:200 mg oralDaily after lunch, Indications: Rheumatoid Arthritis, Informant: Self, Reported on 01/09/2022 melatonin 5 mg tabletIndication s:sleep Take 5 mg by mouth nightly as needed Active Active Problems Problem Noted Date Diagnosed Date 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 Overview (01/02/2022): Added automatically from request for surgery [id number] De Quervain's disease (radial styloid tenosynovi tis) 01/02/2022 Overview (01/02/2022): Added automatically from request for surgery [id number] Aortic dilatation 07/02/2018 Overview (07/02/2018): Ascending aorta is 3.8 cm High risk medication use 02/21/2017 Sliding hiatal hernia 11/22/2016 Overview (12/21/2016): Sliding diaphragmatic hernia Chronic idiopathic constipation 10/02/2016 Rectal prolapse 08/14/2016 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 Overview (10/31/2016): CERVICOBRACHIAL SYNDROME Rheumatoid arthritis, seropositive, multiple sit es 12/12/2013 Overview (11/01/2016): RHEUMATOID ARTHRITIS Thoracic and lumbosacral neuritis 12/12/2013 Overview (11/01/2016): LUMBOSACRAL NEURITIS NOS Notalgia 07/01/2013 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 Meningioma 04/08/2012 Coagulation disorder 06/28/2011 Fibromyalgia 03/12/2011 Fatigue 03/12/2011 Mitral valve prolapse 03/12/2011 Cephalalgia 03/12/2011 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 Osteopenia 02/20/2011 Cervicalgia 02/20/2011 Immunizations Immunization Administration Dates Next Due Influenza, Quadrivalent, Rec ombinant, Egg Free, Preservative Free, Intramuscular 03/28/2020 Influenza, Quadrivalent, Spl it, Preservative Free, Intramuscular 04/06/2016 Influenza, Split 05/16/2011,05/01/2010 Influenza, Trivalent, High D ose, Split, Preservative Free, Intramuscular 05/20/2019,04/01/2018,04/20/2017 Influenza, Trivalent, IM (MDV) 5,04/06/2013,04/18/2009,05/13 Influenza, Trivalent, Preser vative Free, Intramuscular 03/29/2013 Influenza, Unspecified 04/26/2018,04/15/2017 Pneumococcal Conjugate PCV 13 07/01/2015 Pneumococcal Polysaccharide PPV23 11/26/2016 Tdap 03/21/2017 ZOSTER Recombinant 08/17/2019 Social History Tobacco Use Types Packs/Day Years Used Date Smoking Tobacco: Never Smokeless Tobacco: Never Alcohol Use Standard Drinks/Week Comments No 0 (1 standard drink = 0.6 oz pur e alcohol) AUDIT-C Answer Date Recorded Q1: How often do you have a drink containing alcohol? Never 01/03/2022 Q2: How many drinks containi ng alcohol do you have on a typical day when you are drinking? Patient does not drink Q3: How often do you have si x or more drinks on one occasion? Never 01/03/2022 Comments No Sex and Gender Information Value Date Recorded Sex Assigned at Not on file Legal Sex Female 2:59 PM REHABILITATION SERVICES COORDINATOR Gender Identity Not on file Sexual Orientation Not on file Last Filed Vital Signs Vital Sign Reading Time Taken Comments Blood Pressure 116/78 01/09/2022 1:20 PM CDT Pulse 74 01/09/2022 1:30 PM CDT Temperature 36.3 C (97.3 F) 01/09/2022 11:59 AM CDT Respiratory Rate 21 01/09/2022 1:30 PM CDT Oxygen Saturation 98% 01/09/2022 1:30 PM CDT Inhaled Oxygen Concentration - - Weight 68 kg (150 lb) 01/03/2022 8:15 AM CDT Height 167.6 cm (5' 6 ) 01/03/2022 8:15 AM CDT Body Mass Index 24.21 01/03/2022 8:15 AM CDT Plan of Treatment Not on file Medical Devices Implanted Type Area Otr Driver Device Identifier Shelf Expiration Date Model / Serial / Lot Icd-10/27/2018 Implanted:2018 by Unknown, Notinfile (Quantity not on file) ICD Chest Biotronik [id number] / [id number] / Description:Implanted by [facility] Cariology - Dr. Kristy Brunson [id number] Lead (Ra)-10/27/2018 Implanted:2018 by Unknown, Notinfile (Quantity not on file) Lead Heart Biotronik SOLIA [id number] / [id number] / Description:Implanted by [facility] Cariology - Dr. Kristy Brunson [phone] Lead (Rv)-10/27/2018 Implanted:2018 by Unknown, Notinfile (Quantity not on file) Lead Heart Biotronik PLEXA [id number] / [id number] / Description:Implanted by [facility] Vladislav Brunson [id number] Lead (Cor Sinus)-02/23/2019 Implanted:2018 by Unknown, Notinfile (Quantity not on file) Lead Heart Biotronik SENTUS [id number] / [id number] / Description:Implanted by [facility] Carmaribel - Dr. Kristy Brunson [id number] TwtBks [id number] [facility] Coil 400 Rosa .02in 4mm 20cm Complex Large Volume Fully - [id number] Implanted:Qty: 1 on 06/11/2018 at [facility] 07/01/2025 [id number] / / [id number] [facility] [id number] Pod 45cm Pack J-Soft Coil Embolization Sterile Latex Free - [id number] Implanted:Qty: 1 on 06/11/2018 at [facility] 02/22/2026 [id number] / / [id number] Daig Beat[employer] [id number] Angio-Seal Vip Bondek-Plus 6fr .035in 70cm Hemostatic Latex Free - [id number] Implanted:Qty: 1 on 06/11/2018 at [facility] Daig [employer] 03/28/2019 [id number] / / [id number] [employer] [id number] Penumbra Coil 400 Rosa .02in 5mm 30cm Complex Large Volume Fully - [id number] Implanted:Qty: 1 on 06/11/2018 at [facility] [employer] 10/31/2023 [id number] / / [id number] [employer] [id number] Pod 15cm Pack J-Soft Coil Embolization Sterile Latex Free - [id number] Implanted:Qty: 1 on 06/11/2018 at [facility] [employer] 02/16/2026 [id number] / / [id number] [employer] [id number] Valeri 6mm 14cm 7.4 Loop Soft Radiopacity .018in Coil - [id number] Implanted:Qty: 1 on 06/11/2018 at [facility] [employer] 04/11/2023 [id number] / / [id number] [employer] [id number] Valeri 6mm 14cm 7.4 Loop Soft Radiopacity .018in Coil - [id number] Implanted:Qty: 1 on 06/11/2018 at [facility] [employer] 04/11/2023 [id number] / / [id number] [employer] [id number] Penumbra Coil 400 Rosa .02in 6mm 30cm Complex Large Volume Fully - [id number] Implanted:Qty: 1 on 06/11/2018 at [facility] [employer] 10/28/2024 [id number] / / [id number] [employer] [id number] Pod 60cm Pack J-Soft Coil Embolization Sterile Latex Free - [id number] Implanted:Qty: 1 on 06/11/2018 at [facility] [employer] 02/22/2026 [id number] / / [id number] [employer] [id number] Pod 60cm Pack J-Soft Coil Embolization Sterile Latex Free - [id number] Implanted:Qty: 1 on 06/11/2018 at [facility] [employer] 02/22/2026 [id number] / / [id number] [employer] [id number] Pod 60cm Pack J-Soft Coil Embolization Sterile Latex Free - [id number] Implanted:Qty: 1 on 06/11/2018 at [facility] [employer] 02/22/2026 [id number] / / [id number] Allosource Freeze Dried Chips 4-10mm Graft 30ml Bone Cancellous [id number] - [id number] - [id number] Implanted:Qty: 1 on 01/09/2022 by Jean Ayala MD at [facility] Right: Wrist [employer] 07/01/2026 [id number] / [id number] / [id number] Trimed Inc Screw 24mm 3.5mm 3.5mm 4.5mm Bone Small Headless Screw Cannulated Screw System Titanium Accepts 1.1mm Terrie Wire [id number] - [id number] Implanted:Qty: 1 on 01/09/2022 by Jean Ayala MD at [facility] Right: Wrist [employer] Inc [id number] / / Tr[employer]ed Inc Screw 18mm 3mm 3mm 4mm Bone Small Headless Screw Cannulated Screw System Titanium Accepts 1.1mm Terrie Wire [id number] - [id number] Implanted:Qty: 2 on 01/09/2022 by Jean Ayala MD at [facility] Right: Wrist Trim[employer] Inc L3018 / / Explanted Type Area Otr Driver Device Identifier Shelf Expiration Date Model / Serial / Lot [employer] [id number] K Wire Fix [place] Bth End Ss [id number] - [id number] Explanted:Qty: 1 on 01/09/2022 by Jean Ayala MD at [facility] Right: Wrist [employer] [id number] / / Trimed Inc Wire 120mm 1.1mm Fixation Terrie Nonsterile Wire-1.1/120 - [id number] Explanted:Qty: 4 on 01/09/2022 by Jean Ayala MD at [facility] Right: Wrist [employer] Inc WIRE-1.1/1 20 / Procedures Procedure Name Priority Date/Time Associated Diagnosis Comments HEPATITIS PANEL, ACUTE Routine 08/13/2019 1:24 PM REHABILITATION SERVICES COORDINATOR Rheumatoid arthritis, seropositive, multiple sites (HCC) BONE MINERAL DENSITY 03/28/2015 from Last 3 Months or Most Recently Relevant to Health Maintenance Results * Hepatitis panel, acute (08/13/2019 1:24 PM REHABILITATION SERVICES COORDINATOR) Hep A IgM Nonreactive Nonreactive [facility] Comment: Interpretive Data If test is reported as GRAYZONE, new sample should be drawn in two weeks for testing. Current interpretive data was last revised on 2016. Hep B core IgM Nonreactive Nonreactive [facility] Comment: Interpretive Data If test is reported as GRAYZONE, new sample should be drawn for testing. Current interpretive data was last revised on 2016. Hep C Ab Nonreactive Nonreactive [facility] Comment: Interpretive Data Positive results should be confirmed by a molecular method. If positive, a second separately collected sample should be submitted for Hepatitis C Virus (HCV) RNA Detection and Quantitation by Real-Time Reverse Transport Aide-PCR (RT-PCR). Current interpretive data was last revised on 2016. HepBsAg Nonreactive Nonreactive [facility] Blood specimen (specimen) 08/13/2019 1:24 PM REHABILITATION SERVICES COORDINATOR 08/13/2019 4:28 PM REHABILITATION SERVICES COORDINATOR Aminat Prado MD LAB MICROBIOLOGY - GENERAL O RDERABLES Edited Result - Final [facility] Department [place] [address] * BONE MINERAL DENSITY (03/28/2015) Anatomical Region Laterality Modality Radiographic Naima ging Narrative 03/28/2015 Ordered by an unspecified provider. us Historical Provider IMDeysi DXA PROCEDURES Final Result from Last 3 Months or Most Recently Relevant to Health Maintenance Insurance IDPA [facility] MEDICARE ADVANTAGE [facility] MEDICARE ADVANTAGE IDPA [facility] MEDICARE ADVANTAGE [facility] Address: [address] [address] [place] [address] Advance Directives For more information, please contact: [phone] * Full Code (Latest Code Status on File) Date Activated Date Inactivated Comments 06/11/2018 7:42 AM 06/11/2018 7:17 PM * Full Code Date Activated Date Inactivated Comments 04/28/2018 6:37 PM 05/01/2018 4:07 PM Care Teams Manufacturing Scheduler Relationship Specialty Start Date End Date Primitivo Merchant MD PCP - General 05/23/17
--- OUTSIDE RECORDS SUMMARY | 2024-11-25 00:51 | XMS_ITS | Clinical Summary ---
Author Organization [facility] Address [address] [place] [address] Care Team Providers Care Perioperative Tech Name Role Phone Primitivo Merchant MD Primary Care Provider + [phone] Allergies Active Allergy Reactions Criticality Noted Date [...] (01/02/2022): Added automatically from request for surgery [id number] De Quervain's disease (radial styloid tenosynovi tis) 01/02/2022 Overview (01/02/2022): Added automatically from request for surgery [id number] Aortic dilatation 07/02/2018 Overview (07/02/2018): Ascending aorta [...] PPV23 11/26/2016 Tdap 03/21/2017 ZOSTER Recombinant 08/17/2019 Surgical History Surgery Date Site/Laterality Comments KNEE ARTHROPLASTY 07/29/2007 - 07/28/2008 Right Knee replacement HYSTERECTOMY 07/29/2009 - 07/28/2010 OTHER SURGICAL HISTORY 07/29/2011 - 07/28/2012 cervical spinal stenosis: cervical fusion 56 67 CERVICAL SPINE SURGERY cervical fusion c45 and 67 OTHER SURGICAL HISTORY 07/29/2016 - 07/28/2017 rectocoele: repair LAPAROSCOPY REPAIR HIATAL HERNIA 12/27/2016 - 01/25/2017 BUNIONECTOMY 04/28/2017 - 05/28/2017 Right EMBOLIZATION ARTERIAL OTHER THAN HEMORRHAGE 06/11/2018 N/A ATRIAL CARDIAC PACEMAKER INSERTION 10/27/2018 ICD WRIST SURGERY Right 1970's BREAST SURGERY 07/29/1988 - 07/28/1989 Bilateral implants TONSILLECTOMY 07/29/1961 - 07/28/1962 Medical History Medical History Date Comments Hx Other Medical cervical spinal stenosis Hx Other Medical meningioma Hx Other Medical rectocoele; Com ments: SES 11/22/2016 - Hypercholesterolemia High choles terol; Comments: SES 11/22/2016 - Depression PONV (postoperative nausea and vomiting) Family History Medical History Relation Name Comments Alzheimer's disease Mother Alzheime r's Disease; Diabetes type II Mother Diabetes -T ype 2; Lupus Sister Lymphoma Sister Lymphoma; Relation Name Status Comments Mother Sister Social History Tobacco Use Types Packs/Day Years [...] on file Legal Sex Female 2:59 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 Gender Identity Not on file Sexual Orientation Not on file Obstetrics History Last Filed Vital Signs Vital Sign Reading [...] 01/03/2022 8:15 AM CDT Plan of Treatment Health Maintenance Due Date Last Done Comments Breast Cancer Screening-Mammogram 1950 Colon Cancer Screening-Colonoscopy 1950 Depression Screening 1950 Fall Risk Assessment 1950 Hepatitis B Screening 1969 Well Visit 65+ 2016 Osteoporosis Screening-Bone Density Scan 03/28/2017 03/28/2015 Zoster Vaccine (2 of 2) 10/12/2019 08/17/2019 Influenza Vaccine (#1) 2024 1, 03/28/2020, 05/20/2019, Additional history exists DTaP/Tdap/Td Vaccine (2 - Td or Tdap) 03/21/2027 03/21/2017 Pneumococcal vaccine 65+ Completed 11/26/2016, 10/2014 Hepatitis C Screening Completed 08/13/2019, 016 Medical Devices Implanted Type Area Gutter Installer Device Identifier Shelf Expiration Date Model / Serial / Lot Icd-10/27/2018 Implanted:2018 by Unknown, Notinfile (Quantity not on file) ICD Chest Biotronik [id number] / [id number] / Description:Implanted by [facility] Cari[facility] - Dr. Kristy Brunson [id number] Lead (Ra)-10/27/2018 Implanted:2018 by Unknown, Notinfile (Quantity not on file) Lead Heart Biotronik SOLIA [id number] / [id number] / Description:Implanted by [facility] Cari[facility] En Brunson [phone] Lead (Rv)-10/27/2018 Implanted:2018 by Unknown, Notinfile (Quantity not on file) Lead Heart Biotronik PLEXA S65 [id number] / [id number] / Description:Implanted by [facility] En Brunson [id number] Lead (Cor Sinus)-02/23/2019 Implanted:2018 by Unknown, Notinfile (Quantity not on file) Lead Heart Biotronik SENTUS [id number] / [id number] / Description:Implanted by [facility] Cari[facility] En Brunson [phone] Penumbra Inc [id number] Penumbra Coil 400 Rosa .02in 4mm 20cm Complex Large Volume Fully - [id number] Implanted:Qty: 1 on 06/11/2018 at [facility] [employer] 07/01/2025 [id number] / / [id number] Pen[employer] Inc [id number] Pod 45cm Pack J-Soft Coil Embolization Sterile Latex Free - [id number] Implanted:Qty: 1 on 06/11/2018 at [facility] [employer] 02/22/2026 [id number] / / [id number] Daig Beatris[employer] [id number] Angio-Seal Vip Bondek-Plus 6fr .035in 70cm Hemostatic Latex Free - [id number] Implanted:Qty: 1 on 06/11/2018 at [facility] [employer]ig [employer] 03/28/2019 [id number] / / [id number] Pen[employer] Inc [id number] Penumbra Coil 400 Rosa .02in 5mm 30cm Complex Large Volume Fully - [id number] Implanted:Qty: 1 on 06/11/2018 at [facility] [employer] 10/31/2023 [id number] / / [id number] Pen[employer] Inc [id number] Pod 15cm Pack J-Soft Coil Embolization Sterile Latex Free - [id number] Implanted:Qty: 1 on 06/11/2018 at [facility] [employer] 02/16/2026 [id number] / / [id number] [employer] Inc [id number] Valeri 6mm 14cm 7.4 Loop Soft Radiopacity .018in Coil - [id number] Implanted:Qty: 1 on 06/11/2018 at [facility] [employer] 04/11/2023 [id number] / / [id number] [employer] [id number] Valeri 6mm 14cm 7.4 Loop Soft Radiopacity .018in Coil - [id number] Implanted:Qty: 1 on 06/11/2018 at [facility] [employer] 04/11/2023 [id number] / / [id number] [facility] [id number] Penumbra Coil 400 Rosa .02in 6mm 30cm Complex Large Volume Fully - [id number] Implanted:Qty: 1 on 06/11/2018 at [facility] [employer] 10/28/2024 [id number] / / [id number] Pen[employer] Inc [id number] Pod 60cm Pack J-Soft Coil Embolization Sterile Latex Free - [id number] Implanted:Qty: 1 on 06/11/2018 at [facility] [employer] 02/22/2026 [id number] / / [id number] [employer] Inc [id number] Pod 60cm Pack J-Soft Coil Embolization Sterile Latex Free - [id number] Implanted:Qty: 1 on 06/11/2018 at [facility] [employer] 02/22/2026 [id number] / / [id number] [employer] Inc Aoufilz18 Pod 60cm Pack J-Soft Coil Embolization Sterile Latex Free - [id number] Implanted:Qty: 1 on 06/11/2018 at [facility] [employer] 02/22/2026 [id number] / / [id number] Allosource Freeze Dried Chips 4-10mm Graft 30ml Bone Cancellous [id number] - [id number] - [id number] Implanted:Qty: 1 on 01/09/2022 by Jean Ayala MD at [facility] Right: Wrist [employer] 07/01/2026 [id number] / [id number] / [id number] Trimed Inc Screw 24mm 3.5mm 3.5mm 4.5mm Bone Small Headless Screw Cannulated Screw System Titanium Accepts 1.1mm Terrie Wire L3524 - [id number] Implanted:Qty: 1 on 01/09/2022 by Jean Ayala MD at [facility] Right: Wrist Trimed Inc L3524 / / Trimed Inc Screw 18mm 3mm 3mm 4mm Bone Small Headless Screw Cannulated Screw System Titanium Accepts 1.1mm Terrie Wire L3018 - [id number] Implanted:Qty: 2 on 01/09/2022 by Jean Ayala MD at [facility] Right: Wrist Trimed Inc L3018 / / Explanted Type Area Gutter Installer Device Identifier Shelf Expiration Date Model / Serial / Lot [employer] 1600-445ns K Wire Fix [place] Bth End Ss [id number] - [id number] Explanted:Qty: 1 on 01/09/2022 by Jean Ayala MD at [facility] Right: Wrist [employer] [id number] / / Trimed Inc Wire 120mm 1.1mm Fixation Terrie Nonsterile Wire-1.1120 - [id number] Explanted:Qty: 4 on 01/09/2022 by Jean Ayala MD at [facility] Right: Wrist Tr[employer]ed Inc WIRE-1.1/1 20 / / Procedures Procedure Name Priority Date/Time Associated Diagnosis Comments HEPATITIS PANEL, ACUTE Routine 08/13/2019 1:24 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 Rheumatoid arthritis, seropositive, multiple sites (HCC) BONE MINERAL DENSITY 03/28/2015 from Last 3 Months or Most Recently Relevant to Health Maintenance Results * Hepatitis panel, acute (08/13/2019 1:24 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) Hep A IgM Nonreactive Nonreactive [facility] Comment: Interpretive Data If test is reported as GRAYZONE, new sample should be drawn in two weeks for testing. Current interpretive data was last revised on 2016. Hep B core IgM Nonreactive Nonreactive [facility] Comment: Interpretive Data If test is reported as GRAYZONE, new sample should be drawn for testing. Current interpretive data was last revised on 2016. Hep C Ab Nonreactive Nonreactive [facility] Comment: Interpretive Data Positive results should be confirmed by a molecular method. If positive, a second separately collected sample should be submitted for Hepatitis C Virus (HCV) RNA Detection and Quantitation by Real-Time Reverse Overnight Caregiver-PCR (RT-PCR). Current interpretive data was last revised on 2016. HepBsAg Nonreactive Nonreactive [facility] Blood specimen (specimen) 08/13/2019 1:24 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 08/13/2019 4:28 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 Aminta Prado MD LAB MICROBIOLOGY - GENERAL O RDERABLES Edited Result - Final [facility] Department [place] [address] * BONE MINERAL DENSITY (03/28/2015) Anatomical Region Laterality Modality Radiographic Naima ging Narrative 03/28/2015 Ordered by an unspecified provider. Historical Provider MD IZAGUIRRE DXA PROCEDURES Final Result from Last 3 Months or Most Recently Relevant to Health Maintenance Insurance IDPA [facility] MEDICARE ADVANTAGE [facility] Address: [address] [address] [place] [address] [employer] MEDICARE ADVANTAGE IDPA [facility] MEDICARE ADVANTAGE [facility] Address: [address] [address] [place] [address] Advance Directives For more information, please contact: [phone] * Full Code (Latest Code Status on File) Date Activated Date Inactivated Comments 06/11/2018 7:42 AM 06/11/2018 7:17 PM * Full Code Date Activated Date Inactivated Comments 04/28/2018 6:37 PM 05/01/2018 4:07 PM Care Teams Perioperative Tech Relationship Specialty Start Date End Date Primitivo Merchant MD PCP - General 05/23/17
--- OUTSIDE RECORDS SUMMARY | 2024-11-25 00:51 | XMS_ITS | Clinical Summary ---
Author Organization [facility] Address [address] [place] [address] Care Team Providers Care Scheduler Name Role Phone Primitivo Merchant MD Primary Care Provider [phone] Source Comments [facility],non-owned Affiliates and Associated Physician Practices is amultiple site organization consisting of ambulatory clinics and hospital sitesin [place], [place], [place] and [place]. This disclosure is being madepursuant to the Care Everywhere program and may not contain all information available regarding this patient. 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 Gender Identity Not on file Sexual Orientation Not on file Last Filed Vital Signs Vital Sign Reading Time Taken Comments Blood Pressure 118/78 01/01/2017 10:34 AM CDT Pulse 74 01/01/2017 10:34 AM CDT Temperature 36.1 C (97 F) 10/02/2016 9:37 AM ACCESSORIES REPAIRER Respiratory Rate 20 09/16/2016 7:48 AM ACCESSORIES REPAIRER Oxygen Saturation 97% 01/01/2017 10:34 AM CDT Inhaled Oxygen Concentration - - Weight 73.9 kg (163 lb) 01/01/2017 10:34 AM CDT Height 167.6 cm (5' 6 ) 01/01/2017 10:34 AM CDT Body Mass Index 26.31 01/01/2017 10:34 AM CDT Plan of Treatment Health Maintenance Due Date Last Done Comments BONE DENSITY TESTING 1950 COLOGUARD (AGES 45-75) - COL ON CA SCREENING 1950 COLON MONITORING 1950 COLONOSCOPY - COLON CA SCREENING 1950 CT COLONOGRAPHY - COLON CA SCREENING 1950 Colorectal Cancer Screening 1950 FIT - COLON CA SCREENING 1950 FLEX SIG - COLON CA SCREENING 1950 LIPID TESTING 1950 MAMMOGRAM 1950 HEPATITIS C SCREENING 04/17/1969 DTAP/TDAP/TD VACCINES (1 - Tdap) 1970 PNEUMOCOCCAL VACCINE 50+ (1 of 1 - PCV) 2001 ZOSTER VACCINE (1 of 2) 2001 COVID-19 VACCINE ( - 2023-2 5 season) 2024 DEPRESSION SCREENING 07/29/2024 INFLUENZA VACCINE (Season Ended) 2025 Respiratory Syncytial Virus (RSV) Vaccine Pt: or over 60 yrs (1 - 1-dose 75+ series) 2026 HEPATITIS B VACCINE Aged Out No longe r eligible based on patient's age to complete this topic HIB VACCINE Aged Out No longer eligi ble based on patient's age to complete this topic HPV VACCINE Aged Out No longer eligi ble based on patient's age to complete this topic MENINGOCOCCAL (Group B) VACC INE SHARED DECISION-MAKING Aged Out No longer eligibl e based on patient's age to complete this topic MENINGOCOCCAL GROUPS A/C/Y/W VACCINE Aged Out No longer eligible b ased on patient's age to complete this topic Insurance [facility] MANAGED MEDICARE ADV Care Teams Scheduler Relationship Specialty Start Date End Date Primitivo Merchant MD [address] [place] [address] PCP - General 07/08/18
--- OUTSIDE RECORDS SUMMARY | 2024-11-25 00:52 | XMS_ITS | CONTINUITY OF CARE DOCUMENT ---
Author Name aleksander armijo Address Unknown Organization [facility] Address [address] [place] [address] Phone [phone] Care Team Providers Care Tire Changer Name Role Phone Rohith ZAMORANO, Cesario Unavailable [phone] ИРИНА ZAMORANO, GUDELIA F Unavailable [phone] ИРИНА ZMAORANO, GUDELIA F Unavailable PROBLEMS Condition Status Date Provider Notes Aortic root dilatation active Cesario Newberry MD Vitamin D deficiency active Cesario Van Left bundle branch block active Cesario pittman MD Screening active Cesario Newberry MD hx of Microvascular angina active Cesario Newberry MD had ecp RHEUMATOID ARTHRITIS active Cesario Van Hyperlipidemia;NEG CRP active Cesario Newberry MD Meningioma, brain active Cesario Newberry MD Anemia, iron deficiency active Cesario mora MD b12 and folate ok DIASTOLIC DSYFUNTION active Cesario Van lowest 25, NON ISMCJEIMI, did not liek bb, arb or aldacone Diastolic heart failure completed - Cesario Newberry MD Congestive Heart Failure completed - Cesario lyman MD Valvular heart disease active Cesario Newberry MD Ascending aortic aneurysm completed - Cesario Newberry MD Pancreatitis;hemorragic active Cesario mora MD Shortness of breath completed - Cesario Newberry MD Snoring completed - Cesario Newberry MD CHF - systolic completed - Cesario Newberry MD Status Post BIV AICD Biotronik - (MRI safe) LV lead implanted 02/23/19 active Dasia Azam Abnormal pulmonary function tests completed - Cesario Newberry MD Exposure to SARS-associated coronavirus;neg igg active Cesario Newberry MD Hyperkalemia; completed - Cesario Newberry MD ENCOUNTERS Date Type Provider Location Encounter Diag nosis - In-person encounter Office Visit Cesario Newberry MD [facility] ScreeningAbnormal pulmonary function tests - In-person encounter Office Visit Cesario Newberry MD [facility] Hyperkalemia; - In-person encounter Office Visit Cesario Newberry MD [place] [facility] DIASTOLIC DSYFUNTION - In-person encounter Office Visit Cesario Newberry MD [facility] - In-person encounter Office Visit Cesario Newberry MD [place] [facility] DIASTOLIC DSYFUNTIONExposure to SARS-associated coronavirus;neg igg - In-person encounter Office Visit Kristal Gasca MD [place] [facility] - In-person encounter Office Visit Kristal Gasca MD [place] [facility] - In-person encounter Office Visit Cesario Newberry MD [place] [facility] DIASTOLIC DSYFUNTIONDiastolic heart failureValvular heart diseaseAscending aortic aneurysmShortness of breathSnoring - In-person encounter Office Visit Kristal Gasca MD [place] [facility] - In-person encounter Office Visit Kristal Gasca MD [place] [facility] - In-person encounter Office Visit Kristal Gasca MD [place] [facility] - In-person encounter Office Visit Kristal Gasca MD [place] [facility] - In-person encounter Office Visit Kristal Gasca MD [place] [facility] Status Post BIV AICD Biotronik - (MRI safe) LV lead implanted 02/23/19 - In-person encounter Office Visit Kristal Gasca MD [place] [facility] CHF - systolic - In-person encounter Office Visit Cesario Newberry MD [facility] Anemia, iron deficiencyPancreatitis;hem orragic - In-person encounter Office Visit Cesario Newberry MD [place] [facility] DIASTOLIC DSYFUNTIONCongestive Heart FailureValvular heart disease - In-person encounter Office Visit Kristal Gasca MD [place] [facility] - In-person encounter Office Visit Kristal Gasca MD [place] [facility] - In-person encounter Office Visit Cesario Newberry MD [place] [facility] - In-person encounter Office Visit Cesario Newberry MD [place] [facility] ScreeningDiastolic heart failure - In-person encounter Office Visit Cesario Newberry MD [place] [facility] - In-person encounter Office Visit Cesario Newberry MD [place] [facility] DIASTOLIC DSYFUNTION - In-person encounter Office Visit Cesario Newberry MD [place] [facility] Left bundle branch blockScreeninghx of Microvascular anginaRHEUMATOID ARTHRITISHyperlipidemia;NE G CRPMeningioma, brain VITAL SIGNS Date Observation Value Provider Body Mass Index (Ratio) 24.74 kg/m2 Holly Newberry MD blood pressure, cuff size regular Jeremy Houston blood pressure, diastolic 82 mm[Hg] Jeremy Houston blood pressure, systolic 120 mm[Hg] Tab kristian Turner oxygen saturation, oximetry 98 % [facility] 84 /min Suzi Turner respiratory rate E&M 12 /min Suzi Turner weight E&M 158 [lb_av] [facility] height E&M 67 [in_i] [facility] Body Mass Index (Ratio) 25.03 kg/m2 Holly Newberry MD blood pressure, cuff size [facility], [facility] 86 mm[Hg] [facility] blood pressure, systolic 120 mm[Hg] Tab [facility] oxygen saturation, oximetry 98 % [facility] pulse rate 85 /min [facility] weight E&M 159.8 [lb_av] [facility] respiratory rate E&M 12 /min [facility] height E&M 67 [in_i] [facility] Body Mass Index (Ratio) 25.21 kg/m2 Holly Newberry MD blood pressure, diastolic 89 mm[Hg] Ashanti nkLogaudrey blood pressure, systolic 125 mm[Hg] Karol kLog weight E&M 161 [lb_av] Aminta Burris pulse rate 81 /min Aminta Burris respiratory rate E&M 20 /min Aminta Burris blood pressure, diastolic 89 mm[Hg] Ricci Burris blood pressure, systolic 125 mm[Hg] Yohana Burris oxygen saturation, oximetry 97 % Aminta Burris blood pressure, cuff size regular maya Burris height E&M 67 [in_i] Aminta Burris blood pressure, diastolic 76 mm[Hg] Nii Newberry MD blood pressure, systolic 116 mm[Hg] Nils claudia Newberry MD Body Mass Index (Ratio) 23.65 kg/m2 Holly robles Rohith ZAMORANO blood pressure, cuff size regular Ke rri Gruenenfjamin blood pressure, diastolic 90 mm[Hg] Ke rri Gruenenfelder blood pressure, systolic 142 mm[Hg] Lenny ri Pernellprema oxygen saturation, oximetry 97 % Isis Gimenezdonimatiasjamin respiratory rate E&M 18 /min Isis Jo ruenenfelder pulse rate 69 /min Isis Soriano lder weight E&M 151 [lb_av] Isis Gutierreze lder height E&M 67 [in_i] Isis Gutierrezstephon er Body Mass Index (Ratio) 23.33 kg/m2 Crissy arellano Demarcus temperature site temporal Pam [facility] temperature E&M 97.3 [degF] Pam Zamora e blood pressure, diastolic 87 mm[Hg] Cy jai Ty blood pressure, systolic 139 mm[Hg] Phyllis ravin Ty oxygen saturation, oximetry 99 % Casie Ty pulse rate 70 /min Casieravin Gardner l respiratory rate E&M 16 /min Casie Ty blood pressure, cuff size regular Cy ntramírez Ty weight E&M 149 [lb_av] Casie Akinbel l height E&M 67 [in_i] Casie Akinbel l Body Mass Index (Ratio) 23.02 kg/m2 Jord eileen Demarcus oxygen saturation, oximetry 98 % Casie Ty pulse rate 63 /min Casie Kendra l respiratory rate E&M 16 /min Casie Ty blood pressure, cuff size regular Cy ntramírez Ty blood pressure, diastolic 70 mm[Hg] Cy jai Ty blood pressure, systolic 116 mm[Hg] Phyllis ravin Ty weight E&M 147 [lb_av] Casie sanchez height E&M 67 [in_i] Casie sanchez Body Mass Index (Ratio) 21.92 kg/m2 Holly Newberry MD blood pressure, cuff size regular Cy jai Ty blood pressure, diastolic 70 mm[Hg] Cy jai Ty blood pressure, systolic 118 mm[Hg] Phyllis Ty oxygen saturation, oximetry 95 % Casie Ty respiratory rate E&M 16 /min Casie Ty pulse rate 67 /min Casie sanchez weight E&M 140 [lb_av] Casie sanchez height E&M 67 [in_i] Casie sanchez Body Mass Index (Ratio) 22.08 kg/m2 Crissy Tracy blood pressure, cuff size regular Cr yanni Zelaya blood pressure, diastolic 80 mm[Hg] Cr yanni Zelaya blood pressure, systolic 130 mm[Hg] Cry stalaura Zelaya oxygen saturation, oximetry 97 % Rosanne Zelaya respiratory rate E&M 17 /min Rosanne Zelaya pulse rate 111 /min Rosanne caballero weight E&M 141 [lb_av] Rosanne Srinivasan s height E&M 67 [in_i] Rosanne Srinivasan s Body Mass Index (Ratio) 21.77 kg/m2 Antolin Gasca MD blood pressure, diastolic 80 mm[Hg] Ki llfrancy García blood pressure, systolic 118 mm[Hg] Jovanni García oxygen saturation, oximetry 97 % Kelli García respiratory rate E&M 16 /min Kelli García pulse rate 85 /min Tully García weight E&M 139 [lb_av] Tully García height E&M 67 [in_i] Tully García Body Mass Index (Ratio) 21.77 kg/m2 Jord en Demarcus blood pressure, diastolic 80 mm[Hg] Price delarosaeen García blood pressure, systolic 118 mm[Hg] Jovanni pak García oxygen saturation, oximetry 95 % Tully García respiratory rate E&M 16 /min Kelli García pulse rate 81 /min Kelli García weight E&M 139 [lb_av] Tully García height E&M 67 [in_i] Kelli García Body Mass Index (Ratio) 22.71 kg/m2 Tara n García blood pressure, diastolic 80 mm[Hg] rPice koroma García blood pressure, systolic 118 mm[Hg] Jovanni pak García oxygen saturation, oximetry 98 % Tully García respiratory rate E&M 16 /min Tully García pulse rate 83 /min Kelli Agrcía weight E&M 145 [lb_av] Tully García height E&M 67 [in_i] Tully García Body Mass Index (Ratio) 22.55 kg/m2 Waylon hudson [place] blood pressure, diastolic 80 mm[Hg] Da janessa Stacey blood pressure, systolic 122 mm[Hg] Dac ia Stacey oxygen saturation, oximetry 93 % Ella Stacey respiratory rate E&M 16 /min Ella V oss pulse rate 88 /min Ella Stacey weight E&M 144 [lb_av] Ella Stacey height E&M 67 [in_i] Ella Stacey Body Mass Index (Ratio) 22.55 kg/m2 Antolin Gasca MD weight E&M 144 [lb_av] Jose [place] respiratory rate E&M 18 /min Jose [place] pulse rate 74 /min Jose [place] blood pressure, diastolic 84 mm[Hg] Don martin [place] blood pressure, systolic 120 mm[Hg] Jovita gurrola [place] height E&M 67 [in_i] Jose [place] Body Mass Index (Ratio) 21.77 kg/m2 Holly Newberry MD pulse rate 92 /min Isis villafana respiratory rate E&M 18 /min Isis mckeon blood pressure, cuff size large Ke rri Constancelicking memorial hospitalenrique blood pressure, diastolic 80 mm[Hg] Ke rri Mattbrattle[facility] memorial hospitalenrique blood pressure, systolic 110 mm[Hg] Lenny Fabian weight E&M 139 [lb_av] Isis Christie garciaer height E&M 67 [in_i] Isis Soriano er Body Mass Index (Ratio) 22.24 kg/m2 Holly Newberry MD blood pressure, swan tolic, second observation 65 mm[Hg] Cesario Newberry MD blood pressure, syst olic, second observation 124 mm[Hg] Cesario Newberry MD blood pressure, diastolic 70 mm[Hg] Price koroma García blood pressure, systolic 100 mm[Hg] Jovanni garcianoemi Lyncham oxygen saturation, oximetry 98 % Kelli García respiratory rate E&M 16 /min Tully García pulse rate 78 /min Tully García weight E&M 142 [lb_av] Kelli García height E&M 67 [in_i] Tully García Body Mass Index (Ratio) 22.86 kg/m2 Waylon hudson [place] blood pressure, cuff size regular Ke rri Gruenenfelder blood pressure, diastolic 62 mm[Hg] Ke rri Gruenenfelder blood pressure, systolic 106 mm[Hg] Ker ri Gruenenfelder oxygen saturation, oximetry 99 % Isis Gruenematiasvinceer respiratory rate E&M 18 /min Isis G ruenenfelder pulse rate 85 /min Isis Gruenenfe lder weight E&M 146 [lb_av] Isis Gruenenfe lder height E&M 67 [in_i] Isis Gruenenfe er blood pressure, diastolic 68 mm[Hg] Cy sawyermorgan Karson blood pressure, systolic 105 mm[Hg] Phyllis ravin Ty Body Mass Index (Ratio) 22.55 kg/m2 Waylon Delarosa blood pressure, cuff size large Ke rri Gruenenfelder blood pressure, diastolic 70 mm[Hg] Ke rri Gruenenfelder blood pressure, systolic 110 mm[Hg] Ker ri Mariouenericky oxygen saturation, oximetry 98 % Isis Pernellnematiasjamin respiratory rate E&M 20 /min Isis G lanaenenfeldenrique pulse rate 77 /min Isis Gruenenfe lder weight E&M 144 [lb_av] Isis Gruenenfe lder height E&M 67 [in_i] Isis Gruenenfe er Body Mass Index (Ratio) 23.02 kg/m2 Lashawn todd Puhse blood pressure, cuff size large Ke rri Gruenenfelder blood pressure, diastolic 80 mm[Hg] Ke rri Gruenenfelder blood pressure, systolic 110 mm[Hg] Ker ri Gruenenfelder oxygen saturation, oximetry 98 % Isis Gruenenfelder pulse rate 73 /min Isis Gruenenfe lder respiratory rate E&M 20 /min Isis Deysi lauranfvinceer weight E&M 147 [lb_av] Isis Gruenenfe lder height E&M 67 [in_i] Isis Gruenenfe lder Body Mass Index (Ratio) 22.33 kg/m2 Yoni da Ventimiglia LNA blood pressure, cuff size regular Cy jai Ty blood pressure, diastolic 70 mm[Hg] Cy ntlarrya Ty blood pressure, systolic 116 mm[Hg] Phyllis ravin Ty oxygen saturation, oximetry 96 % Casie Ty respiratory rate E&M 18 /min Casie Ty pulse rate 80 /min Casie Akinbel l weight E&M 142.6 [lb_av] Casieravin Gerardobe ll height E&M 67 [in_i] Casie Campbel l Body Mass Index (Ratio) 25.21 kg/m2 Holly Newberry MD blood pressure, cuff size regular Ke pazi Rui blood pressure, diastolic 84 mm[Hg] Ke rri Mariouenenfjamin blood pressure, systolic 130 mm[Hg] Lenny ri Rui oxygen saturation, oximetry 96 % Isis Rui respiratory rate E&M 18 /min Isis Jo mike pulse rate 63 /min Isis Mariouenenfe lder weight E&M 161 [lb_av] Isis Mariouenenfe lder height E&M 67 [in_i] Isis Pernellnenfe lder Body Mass Index (Ratio) 24.59 kg/m2 Holly Newberry MD blood pressure, cuff size regular Hawa Sweeney blood pressure, diastolic 80 mm[Hg] Hawa Sweeney blood pressure, systolic 110 mm[Hg] William Sweeney oxygen saturation, oximetry 98 % Flakita Sweeney respiratory rate E&M 16 /min Flakita Sweeney pulse rate 72 /min Flakita Sweeney weight E&M 157 [lb_av] Flakita Sweeney height E&M 67 [in_i] Flakita Sweeney Body Mass Index (Ratio) 24.74 kg/m2 [facility] blood pressure, cuff size regular avery Demecs RN blood pressure, diastolic 80 mm[Hg] avery Demecs RN blood pressure, systolic 136 mm[Hg] [facility] sta Demecs RN oxygen saturation, oximetry 97 % Cascade Demecs RN respiratory rate E&M 18 /min Cascade Demecs RN pulse rate 94 /min Cascade Demecs R N weight E&M 158 [lb_av] Cascade Demecs R N Body Mass Index (Ratio) 25.06 kg/m2 [facility] ta Demecs RN blood pressure, cuff size regular avery Demecs RN blood pressure, diastolic 80 mm[Hg] avery Demecs RN blood pressure, systolic 134 mm[Hg] [facility] sta Demecs RN oxygen saturation, oximetry 97 % Cascade Demecs RN respiratory rate E&M 16 /min Cascade Demecs RN pulse rate 73 /min Cascade Demecs R N weight E&M 160 [lb_av] Courtney Demecs R N Body Mass Index (Ratio) 25.53 kg/m2 Holly Newberry MD blood pressure, resting No Holly Newberry MD blood pressure, cuff size regular Ke rri Rui blood pressure, diastolic 75 mm[Hg] Ke rri Pernellnenfvinceenrique blood pressure, systolic 123 mm[Hg] Lenny Fabian oxygen saturation, oximetry 92 % Isis Fabian respiratory rate E&M 16 /min Isis mckeon pulse rate 75 /min Isis Soriano lder weight E&M 163 [lb_av] Isis Soriano lder height E&M 67 [in_i] Isis Soriano lder ALLERGIES Allergy Name Onset Date Reaction Criticality Status ALDACTONE LOW BP Low Criticality active COZAAR LOW PB Low Criticality active TETANUS Low Criticality active PCN Low Criticality active RESULTS Date Observation Value Provider Reference Range Interpretation Location 2 [facility]in, [facility] iron saturation percent, serum 27 % [facility] 15-55 2 iron, serum 76 ug/dL [facility] 27-139 2 iron binding capacity, unsaturated 206 ug/dL [facility] 129-784 8066/11/1 2 iron binding capacity, total 282 ug/dL [facility] 370-702 0314/11/1 2 B-12, serum 1725 pg/mL [facility] 232-1245 High 2 pro brain natriuretic peptide 190 pg/mL [facility]301 2 c-reactive protein, quantitative, serum <0.15 mg/L [facility] 0.00-3.00 2 calcium, serum 9.3 mg/dL [facility] 8.7-10.3 2 carbon dioxide, venous blood 26 mmol/L [facility] 20-29 2 chloride, serum 105 mmol/L [facility] 96-106 2 potassium, serum 5.4 mmol/L [facility] 3.5-5.2 High 2 sodium, serum 145 mmol/L [facility] 134-144 High 2 urea nitrogen/creatinin e ratio, serum 15 [facility] 12-28 2 eGFR if 76 mL/min/{1.7 3_m2} [facility] >59 2 eGFR if not 66 mL/min/{1.7 3_m2} [facility] >59 2 creatinine, serum 0.89 mg/dL [facility] 0.57-1.00 2 urea nitrogen, blood 13 mg/dL [facility] 8-27 2 blood glucose, random 86 mg/dL [facility] 65-99 2 basophil count, absolute 0.0 x10E3/uL [facility] 0.0-0.2 2 Eosinophil Absolute Count 0.1 X10E3/UL [facility] 0.0-0.4 2 monocyte count, blood, automated 0.6 X10E3/UL [facility] 0.1-0.9 2 lymphocyte count, blood, automated 3.0 X10E3/UL [facility] 0.7-3.1 2 Absolute Neutrophils 4.6 X10E3/UL [facility] 1.4-7.0 2 basophils as percent of blood leukocytes 0 % [facility] Not Estab. 2 eosinophils as percent of blood leukocytes 1 % [facility] Not Estab. 2 monocytes as percent of blood leukocytes 7 % [facility] Not Estab. 2 lymphocytes as percent of blood leukocytes 36 % [facility] Not Estab. 2 neutrophils as percent of blood leukocytes 56 % [facility] Not Estab. 2 platelet count 158 X10E3/UL [facility] 670-483 7189/11/1 2 red blood cell distribution width 12.7 % [facility] 11.7-15.4 2 mean corpuscular hemoglobin concentration, RBC 33.9 G/DL [facility] 31.5-35.7 2 mean corpuscular hemoglobin, RBC 32.1 pg [facility] 26.6-33.0 2 mean corpuscular volume, RBC 95 fL [facility] 79-97 2 hematocrit, blood 38.9 % [facility] 34.0-46.6 2 hemoglobin, blood 13.2 g/dL [facility] 11.1-15.9 2 erythrocyte (RBC) count 4.11 X10E6/UL [facility] 3.77-5.28 2 leukocyte count, blood 8.3 X10E3/UL [facility] 3.4-10.8 1 ferritin, serum 486 ng/mL [facility] 15-150 High 1 iron saturation percent, serum 18 % [facility] 15-55 1 iron, serum 39 ug/dL [facility] 27-139 1 iron binding capacity, unsaturated 176 ug/dL [facility] 850-390 5377/10/1 1 iron binding capacity, total 215 ug/dL [facility] 250-450 Low 1 basophil count, absolute 0.0 x10E3/uL [facility] 0.0-0.2 1 Eosinophil Absolute Count 0.1 X10E3/UL [facility] 0.0-0.4 1 monocyte count, blood, automated 1.1 X10E3/UL [facility] 0.1-0.9 High 1 lymphocyte count, blood, automated 3.1 X10E3/UL [facility] 0.7-3.1 1 Absolute Neutrophils 6.7 X10E3/UL [facility] 1.4-7.0 1 basophils as percent of blood leukocytes 0 % [facility] Not Estab. 1 eosinophils as percent of blood leukocytes 1 % [facility] Not Estab. 1 monocytes as percent of blood leukocytes 10 % [facility] Not Estab. 1 lymphocytes as percent of blood leukocytes 28 % [facility] Not Estab. 1 neutrophils as percent of blood leukocytes 61 % [facility] Not Estab. 1 platelet count 350 X10E3/UL [facility] 406-554 9253/10/1 1 red blood cell distribution width 13.9 % [facility] 12.3-15.4 1 mean corpuscular hemoglobin concentration, RBC 33.5 G/DL [facility] 31.5-35.7 1 mean corpuscular hemoglobin, RBC 31.4 pg [facility] 26.6-33.0 1 mean corpuscular volume, RBC 94 fL [facility] 79-97 1 hematocrit, blood 27.8 % [facility] 34.0-46.6 Low 1 hemoglobin, blood 9.3 g/dL [facility] 11.1-15.9 Low 1 erythrocyte (RBC) count 2.96 X10E6/UL [facility] 3.77-5.28 Low 1 leukocyte count, blood 11.0 X10E3/UL [facility] 3.4-10.8 High 0 pro brain natriuretic peptide 137 pg/mL [facility] 0-301 0 lipoprotein, beta, serum, point, quantitative, calculated 77 mg/dL [facility] 0-99 0 very low density lipoproteins 18 mg/dL [facility] 5-40 0 HDL cholesterol, serum 48 mg/dL [facility] >39 0 triglyceride, serum, random 90 mg/dL [facility] 0-149 0 cholesterol, serum 143 mg/dL [facility] 302-902 7289/06/2 2 pro brain natriuretic peptide 120 pg/mL [facility] 0-301 2 ferritin, serum 346 ng/mL [facility] 15-150 High 2 iron saturation percent, serum 33 % [facility] 15-55 2 iron, serum 75 ug/dL [facility] 27-139 2 iron binding capacity, unsaturated 150 ug/dL [facility] 103-311 2624/06/2 2 iron binding capacity, total 225 ug/dL [facility] 250-450 Low 2 calcium, serum 9.1 mg/dL [facility] 8.7-10.3 2 carbon dioxide, venous blood 28 mmol/L [facility] 20-29 2 chloride, serum 100 mmol/L [facility] 96-106 2 potassium, serum 4.0 mmol/L [facility] 3.5-5.2 2 sodium, serum 141 mmol/L [facility] 415-331 4250/06/2 2 urea nitrogen/creatinin e ratio, serum 11 [facility] 12-28 Low 2 eGFR if 85 mL/min/{1.7 3_m2} [facility] >59 2 eGFR if not 74 mL/min/{1.7 3_m2} [facility] >59 2 creatinine, serum 0.83 mg/dL [facility] 0.57-1.00 2 urea nitrogen, blood 9 mg/dL [facility] 8-27 2 blood glucose, random 89 mg/dL [facility] 65-99 2 basophil count, absolute 0.0 x10E3/uL [facility] 0.0-0.2 2 Eosinophil Absolute Count 0.1 X10E3/UL [facility] 0.0-0.4 2 monocyte count, blood, automated 0.6 X10E3/UL [facility] 0.1-0.9 2 lymphocyte count, blood, automated 3.7 X10E3/UL [facility] 0.7-3.1 High 2 Absolute Neutrophils 3.8 X10E3/UL [facility] 1.4-7.0 2 basophils as percent of blood leukocytes 0 % [facility] Not Estab. 2 eosinophils as percent of blood leukocytes 1 % [facility] Not Estab. 2 monocytes as percent of blood leukocytes 7 % [facility] Not Estab. 2 lymphocytes as percent of blood leukocytes 45 % [facility] Not Estab. 2 neutrophils as percent of blood leukocytes 47 % [facility] Not Estab. 2 platelet count 179 X10E3/UL [facility] 979-325 6415/06/2 2 red blood cell distribution width 13.6 % [facility] 12.3-15.4 2 mean corpuscular hemoglobin concentration, RBC 33.4 G/DL [facility] 31.5-35.7 2 mean corpuscular hemoglobin, RBC 31.3 pg [facility] 26.6-33.0 2 mean corpuscular volume, RBC 94 fL [facility] 79-97 2 hematocrit, blood 37.7 % [facility] 34.0-46.6 2 hemoglobin, blood 12.6 g/dL [facility] 11.1-15.9 2 erythrocyte (RBC) count 4.03 X10E6/UL [facility] 3.77-5.28 2 leukocyte count, blood 8.2 X10E3/UL [facility] 3.4-10.8 5 pro brain natriuretic peptide 367.4 pg/mL [facility] 0.0 - 125.0 High 5 urea nitrogen/creatinin e ratio, serum 12.5 [facility] - 5 Estimated Glomerular Filtration Rate (calc) 76.5 (?) [facility] 59.0 - 5 chloride, serum 98.8 mmol/L [facility] 98.0 - 107.0 5 potassium, serum 4.1 mmol/L [facility] 3.5 - 5.1 5 sodium, serum 138.0 mmol/L [facility] 136.0 - 145.0 5 creatinine, serum 0.8 mg/dL [facility] 0.5 - 1.0 5 carbon dioxide, venous blood 31.0 mmol/L [facility] 23.0 - 31.0 5 calcium, serum 9.2 mg/dL [facility] 8.6 - 10.2 5 urea nitrogen, blood 10.0 mg/dL [facility] 8.0 - 23.0 5 blood glucose, random 72.0 mg/dL [facility] 74.0 - 99.0 Low 1 ferritin, serum 548.0 ng/mL [facility] 13.0 - 150.0 High 1 red blood cell distribution width, size density 51.8 fL [facility] immature granulocytes, percentage of total cells, blood 0.1 % [facility] - 1 nucleated red blood cells as percent of blood leukocytes 0.0 % [facility] red blood cell (erythrocyte) count, per high power field 0.0 10*3/UL [facility] - 1 eosinophils as percent of blood leukocytes 3.5 % [facility] - 1 neutrophils as percent of blood leukocytes 39.6 % [facility] - 1 Absolute Neutrophils 2.7 CELLS/UL [facility] 1.5 - 7.8 1 basophils as percent of blood leukocytes 0.4 % [facility] - 1 Absolute Basophils 0.0 CELLS/UL [facility] 0.0 - 0.2 1 monocytes as percent of blood leukocytes 8.3 % [facility] - [facility] Absolute Monocytes 0.6 CELLS/UL [facility] 0.2 - 1.0 1 lymphocytes as percent of blood leukocytes 48.1 % [facility] - 1 Absolute Lymphocytes 3.3 CELLS/UL [facility] 0.9 - 3.9 1 mean platelet volume 11.0 (?) [facility] - 1 platelet count 166.0 THOUSAND/UL [facility] 100.0 - 400.0 1 mean corpuscular hemoglobin concentration, RBC 32.0 G/DL [facility] 31.0 - 38.0 1 mean corpuscular hemoglobin, RBC 31.3 pg [facility] 25.0 - 35.0 1 mean corpuscular volume, RBC 97.8 fL [facility] 75.0 - 100.0 1 hematocrit, blood 39.1 % [facility] 35.0 - 55.0 1 hemoglobin, blood 12.5 g/dL [facility] 11.5 - 16.5 1 erythrocyte count, whole blood 4.0 MILLION/UL [facility] 3.5 - 5.5 1 iron, serum 117.0 ug/dL [facility] 25.0 - 156.0 1 iron saturation percent, serum 50.3 % [facility] 20.0 - 50.0 High 1 iron binding capacity, total 232.4 ug/dL [facility] 250.0 - 450.0 Low 2 vitamin b12, serum 1932.0 pg/mL [facility] 211.0 - 946.0 High 2 very low density lipoproteins 21.0 mg/dL [facility] 5.0 - 40.0 2 LDL/HDL (low-density lipoprotein/high-d ensity lipoprotein) ratio 2.5 RATIO [facility] - 2 lipoprotein, beta, serum, point, quantitative, calculated 145.0 (?) [facility] 0.0 - 100.0 High 2 HDL cholesterol, serum 59.0 mg/dL [facility] 45.0 - 65.0 2 cholesterol, serum 225.0 mg/dL [facility] 0.0 - 200.0 High 2 triglyceride, serum, fasting 105.0 mg/dL [facility] 0.0 - 150.0 2 ferritin, serum 39.6 ng/mL [facility] 13.0 - 150.0 2 iron, serum 55.0 ug/dL [facility] 25.0 - 156.0 2 iron saturation percent, serum 15.7 % [facility] 20.0 - 50.0 Low 2 iron binding capacity, total 350.0 ug/dL [facility] 250.0 - 450.0 2 activated partial thromboplastin time 27.1 SECONDS [facility] 23.0 - 33.0 2 prothrombin time (patient) 9.8 s [facility] 9.0 - 11.5 2 international normalized ratio (INR) 0.9 [facility] 0.9 - 1.1 HISTORY OF MEDICATION USE Medication Status Instructions Dates Provider Indications Com ments ergocalciferol active Cesario morrissey MD pravastatin 40 mg tablet active Take 1 tablet by mouth once daily 01/09 Francisco Lund alendronate 70 mg tablet active Suzi Houston pravastatin 40 mg tablet completed Take 1 tablet by mouth once a day 01/21 - 01/09 Suzi Houston pravastatin 40 mg tablet completed TAKE 1 TABLET BY MOUTH ONCE DAILY. PATIENT NEEDS APPOINTMENT HAS ONLY BEEN IN OFFICE IN2 YEARS 01/02 - 01/21 Isis Rui Orencia 125 mg/mL syringe active Francoise Foy NP pravastatin 40 mg tablet completed Take 1 tablet by mouth once a day Patient needs appointment has not been in office in 2 years 10/12 - 01/02 Kaley Riosreina pravastatin 40 mg tablet completed Take 1 tablet by mouth once a day 10/06 - 10/12 Elzbieta Nation pravastatin 40 mg tablet completed Take 1 tablet by mouth once daily - 10/06 Isis Fabian Coreg 3.125 mg tablet completed 1 tablet twice a day 08/08 - 12/28 Francoise Foy NP hydrocodone-acetami nophen 5-325 mg tablet active Take 1 tablet by mouth every six hours as needed Cesario Newberry MD #14, 4 days supply, Prescribed by BORIS MARCIAL, Filled 05/20/2020 Actemra 162 mg/0.9 mL syringe completed - 12/28 Francoise Foy NP #1.8, 28 days supply, Prescribed by AMINTA SALDANA, Filled 06/07/2020 tizanidine 2 mg tablet completed 1 three times a day as needed 08/08 - 12/28 Francoise Foy NP meloxicam 15 mg tablet completed Take 1 tablet by mouth once a day - 12/28 Francoise Foy NP #30, 30 days supply, Prescribed by CONCETTA NUNN, Filled 05/19/2020 pravastatin 40 mg tablet completed Take 1 tablet by mouth once a day 02/19 - Peyman Javeirt COREG 3.125 MG ORAL TABLET completed ONE TAB. TWICE DAILY - 09/03 Casie Ty PRAVASTATIN SODIUM TABLET completed - 12/31 Casie Ty DOXYCYCLINE MONOHYDRATE 100 MG ORAL CAPSULE completed one tablet twice daily for a month 03/27 - Casie Ty CLINDAMYCIN HCL 150 MG ORAL CAPSULE completed one tablet three times a day for 10 days 03/13 - 02/24 Rosanne Zelaya DOXYCYCLINE HYCLATE 100 MG ORAL TABLET completed one tab twice daily x 14 days 03/06 - 02/24 Rosanne Zelaya ULTRAM 50 MG ORAL TABLET completed Q 6hours PRN for moderate pain for 10 days post surgery, pt does not want percocet 02/25 - 08/08 Cesario Newberry MD OXYCODONE-ACETAMINO PHEN 5-325 MG ORAL TABLET completed Take one tablet every 8 hours as needed for moderate pain 02/23 - 02/27 Kelli García CLINDAMYCIN HCL 150 MG ORAL CAPSULE completed Take one capsule 3 times daily for 14 days 02/23 - 03/09 Kelli García DILAUDID 2 MG ORAL TABLET completed one tab each 6 hours PRN for moderate pain. Stop taking Oxycodone 10/29 - 02/27 Kelli García OXYCODONE-ACETAMINO PHEN 5-325 MG ORAL TABLET completed one tablet each 6 hours PRN for moderate pain 10/27 - 10/29 Kristal Gasca MD CLINDAMYCIN HCL 150 MG ORAL CAPSULE completed one capsule three times a day 10/27 - 11/28 Kelli García FERROUS SULFATE 325 (65 FE) MG ORAL TABLET completed ONE PER DAY - 11/28 Kelli García HYDROCODONE-ACETAMI NOPHEN 5-325 MG ORAL TABLET completed as needed - 02/27 Kelli García CARVEDILOL 3.125 MG ORAL TABLET completed 1 tab BID 01/16 - 02/24 Isis Fabian ALDACTONE 25 MG ORAL TABLET completed 1/2 a day 12/20 - 11/28 Kelli García LOSARTAN POTASSIUM 25 MG ORAL TABLET completed Take one tablet daily 11/19 - 11/28 Kelli García TOPROL XL 25 MG ORAL TABLET EXTENDED RELEASE 24 HOUR completed Take one tab daily 11/19 - 01/16 Concetta Harvey LNA PRAVACHOL 40 MG ORAL TABLET completed ONE TAB. DAILY 08/30 - 11/28 Kelli García VITAMIN D3 5000 UNIT ORAL TABLET completed one a day 08/30 - 02/24 Isis Fabian MELOXICAM 15 MG ORAL TABLET completed take one pill a day 08/29 - 02/24 Isis Fabian AMBIEN 10 MG ORAL TABLET completed take one pill at bedtime 08/29 - 08/08 Cesario Newberry MD TRAMADOL HCL 50 MG ORAL TABLET completed 1 to 2 pills every 6 hours as needed 08/29 - 02/27 Kelli García SIMPONI 50 MG/0.5ML SUBCUTANEOUS SOLUTION AUTO-INJECTOR completed every 4 weeks 08/29 - 08/08 Cesario Newberry MD methotrexate sodium 2.5 mg tablet active 8 once a week 08/29 Isis Fabian OMEPRAZOLE 20 MG ORAL CAPSULE DELAYED RELEASE completed 2 times a day before meals 08/29 - 01/16 Casie Ty hydroxychloroquine 200 mg tablet active Take 1 twice a day 08/29 Isis Fabian EFFEXOR XR 75 MG ORAL CAPSULE EXTENDED RELEASE 24 HOUR completed take one pill a day 08/29 - 09/03 Casie Ty Effexor XR 75 mg capsule,extended release 24hr completed once a day 08/29 - 12/28 Francoise Foy NP CALCIUM CITRATE + D3 TABLET completed Take 1 once a day 08/29 - 01/07 Cesario Newberry MD folic acid 0.8 mg capsule active Take 1 once a day 08/29 Isis Fabian gabapentin 300 mg capsule active 1 three times a day 08/29 Isis Fabian MULTIVITAMIN ADULT TABS completed Take 1 once a day 08/29 - 01/07 Cesario Newberry MD Vitamin C 500 mg capsule, extended release active Take 1 once a day 08/29 Isis Fabian SOCIAL HISTORY Date Observation Value Provider alcohol use no Cesario Murillo D smoking status Never smoker Cesario Newberry MD alcohol use no Cesario Murillo D smoking status Never smoker Cesario Newberry MD smoking status Never smoker Aminta Fatuma social history E&M Smoking Histo ry: Tracee schrader has never smoked. Cesario Newberry MD social history reviewed E&M revi ewed - no changes required Cesario Newberry MD social history E&M S moking History: Tracee schrader has never smoked. Cesario Newberry MD social history reviewed E&M revi ewed - no changes required Cesario Newberry MD smoking status Never smoker Isis alva social history reviewed E&M revi ewed - no changes required Dominic Demarcus smoking status Never smoker Casie Bhaskar foster social history reviewed E&M revi ewed - no changes required Dominic Demarcus smoking status Never smoker Casie Gerardoyaneth foster social history E&M S moking History: Tracee schrader has never smoked. Cesario Newberry MD social history reviewed E&M revi ewed - no changes required Cesario Newberry MD smoking status Never smoker Casie Bhaskar foster social history reviewed E&M revi ewed - no changes required Dominic Tracy smoking status Never smoker Rosanne Pham ams social history reviewed E&M revi ewed - no changes required Kristal Gasca MD smoking status Never smoker Kelli Marleni m social history reviewed E&M revi ewed - no changes required Dominic Demarcus alcohol use no Tully García smoking status Never smoker Kelli Ingra m social history reviewed E&M revi ewed - no changes required Jose Washington social history E&M S moking History: Tracee schrader has never smoked. Jose Washington alcohol use no Kelli García smoking status Never smoker Kelli Lyncha m social history reviewed E&M revi ewed - no changes required Jose Washington social history E&M S moking History: Tracee schrader has never smoked. Jose Washington alcohol use no Ella Stacey smoking status Never smoker Ella Stacey social history E&M S moking History: Tracee schrader has never smoked. Jose Delarosa number of grandchildren Kristal Delarosa alcohol use no Jose Washington smoking status Never smoker Jose Washington social history reviewed E&M revi ewed - no changes required Jose Delarosa social history E&M S moking History: Tracee schrader has never smoked. Cesario Newberry MD social history reviewed E&M revi ewed - no changes required Cesario Newberry MD alcohol use no Isis Gruenenfe lder smoking status Never smoker Isis alva social history E&M S moking History: Tracee schrader has never smoked. Cesario Newberry MD social history reviewed E&M revi ewed - no changes required Cesario Newberry MD number of grandchildren Cesario Newberry MD [facility] alcohol use no Tully García smoking status Never smoker Kelli Lyncha social history reviewed E&M revi ewed - no changes required Jose Dealrosa social history E&M S moking History: Tracee schrader has never smoked. Jose Delarosa alcohol use no Isis Gruenenfe lder smoking status Never smoker Isis Winston nida smoking status Never smoker Casie Bhaskar foster social history reviewed E&M revi ewed - no changes required Jose Washington social history E&M S moking History: Tracee schrader has never smoked. Jose Delarosa number of grandchildren Kristal Delarosa alcohol use no Isis Matte lder smoking status Never smoker Isis Winston nida alcohol use no Isis Matte lder smoking status Never smoker Isis gonzaleser alcohol use no Casie Kendra sanchez smoking status Never smoker Casie Bhaskar foster social history E&M S moking History: Tracee schrader has never smoked. Cesario Newberry MD social history reviewed E&M revi ewed - no changes required Cesario Newberry MD alcohol use no Isis Constancenfe lder smoking status Never smoker Isis Winston nida social history E&M S moking History: Tracee schrader has never smoked. Cesario Newberry MD social history reviewed E&M revi ewed - no changes required Cesario Newberry MD alcohol use no Flakita Sweeney smoking status Never smoker Flakita Sweeney social history E&M S moking History: Tracee schrader has never smoked. Cesario Newberry MD alcohol use no Isis Gutierreze lder smoking status Never smoker Isis alva FAMILY HISTORY Family Member Condition Mother NM female <65 Father Negative FH of Coron nathan Artery Disease Mother Family History of Di abetes: INSURANCE PROVIDERS Payer name Policy type / Coverage type Emy red democrat ID [id number] (PPO C-SNP) Commercial insurance company [id number] [employer]ILY [employer] Medicaid 1 [id number] ADVANCE DIRECTIVES Name Date DISCUSSED - NO DECISION MADE TREATMENT PLAN Date Name Performer [id number],C,mild mr and t r Cesario Newberry MD [id number],C,pro nml ef 46 Cesario Newberry MD [id number],S, N EG JJ n eg gb z ero calicume, neg treamill N O CAD 17 BY CATH, n ml cath 06, neg hep screnn, neg tele Francoisegaldino Carneymichael MARTÍNEZ [id number],S,C HOL: 143 (02/14/2018) HDL: 48 (02/14/2018) H er updated medication list for this problem includes: Pravastatin 40 Mg Tablet (Pravastatin) ..... 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, on DMARDS Francoise Carneymichael MARTÍNEZ [id number],S, c orrected iwth iv ioron, up tod date with colon, got anemic th pancreatits Francoise Roshanstefanymt MANAGER GAME [id number],S,repeat echo A galdino Carneymt MANAGER GAME [id number],S,B IV AICD 2019 Normal function, no events, LV paced 100%, RV paced 93% Francoise Rosahnstefanymt TANYA [id number],S, e f 36 pro normal d id not tolerate BB, ARB/ELIEZER, consider jardiance repeat BNP and echo Francoise Carneymichael MARTÍNEZ Cardiology:berhane tian and amyprisca Newberry MD Cardiology Cesario Newberry MD Cardiology Cesario Newberry MD Cardiology Cesario Newberry MD Cardiology: c orrected iwth iv ioron, up tod date with colon, got anemic iwth pancreatits Cesario Newberry MD Cardiology:neg iron N EG JJ n eg egfr and uacr n eg gb z ero calicume, neg treamill N O CAD 17 BY CATH, n ml cath 06, neg hep screnn, neg tele Cesario Newberry MD Cardiology: M ILD TR PAP 27, MIDL MR AND AI Cesario Newberry MD Cardiology: 4 .2 Cesario Newberry MD Cardiology Cesario Newberry MD Cardiology: E F 50, NML PRO Cesario Newberry MD Cardiology: 6 0 BIV 100 Cesario Newberry MD :MILD TR PAP 27, MIDL MR AND AI Cesario Newberry MD :4.2 Cesario Newberry MD :EF 50, NML PRO Cesario Newberry MD Cardiology Cesario Newberry MD Cardiology Cesario Newberry MD Cardiology: N EG JJ n eg efft n eg gb z ero calicume, neg treamill N O CAD 17 BY CATH, n ml cath 06, neg hep screnn, neg tele Cesario Newberry MD Cardiology: H er updated medication list for this problem includes: Pravastatin 40 Mg Tablet (Pravastatin) ..... Take 1 tablet by mouth once a day C HOL: 143 (02/14/2018) LDL: 77 (02/14/2018) HDL: 48 (02/14/2018) T (02/14/2018) Cesario Newberry MD Cardiology Cesario Newberry MD Cardiology: c orrected iwth iv ioron, up tod date with colon, got anemic iwth pancreatits Cesario Newberry MD Cardiology Cesario Newebrry MD Cardiology Cesario Newberry MD Cardiology: p ro nml ef 45 Cesario Newberry MD Cardiology: m ild mr and tr Cesario Newberry MD Cardiology: 6 0 BIV 100 Cesario Newberry MD Cardiology Cesario Newberry MD :mild mr and tr Cesario Newberry MD :pro nml ef 45 Cesario Newberry MD Cardiology: N EG JJ n eg gb z ero calicume, neg treamill N O CAD 17 BY CATH, n ml cath 06, neg hep screnn, neg tele Francoise Foy MANAGER GAME Cardiology:CHOL: 143 (02/14/2018) HDL: 48 (02/14/2018) H er updated medication list for this problem includes: Pravastatin 40 Mg Tablet (Pravastatin) ..... Take 1 tablet by mouth once a day patient needs appointment has not been in office in 2 years C ompliant with meds, repeat lab work, follows PCP Francoise Foy NP Cardiology:follows rheumatologis t, on DMARDS Francoise Foy NP Cardiology: c orrected iwth iv ioron, up tod date with colon, got anemic th pancreatits Francoise Roshanstefanymt MANAGER GAME Cardiology:repeat echo [facility] MANAGER GAME Cardiology:BIV AICD 2019 Normal function, no events, LV paced 100%, RV paced 93% Francoise Roshanstefanymt MANAGER GAME Cardiology: e f 36 pro normal d id not tolerate BB, ARB/ELIEZER, consider jardiance repeat BNP and echo Francoise Roshanflynn MANAGER GAME TeleHealth: N EG JJ n eg gb z ero calicume, neg treamill N O CAD 17 BY CATH, n ml cath 06, neg hep screnn, neg tele Cesario Newberry MD TeleHealth Cesario Newberry MD TeleHealth Cesario Newberry MD TeleHealth: c orrected iwth iv ioron, up tod date with colon, got anemic iwth pancreatits Cesario Newberry MD TeleHealth: e f 35 pro normal Cesario Newberry MD TeleHealth: H er updated medication list for this problem includes: Pravastatin Sodium 40 Mg Tabs (Pravastatin sodium) ..... Take 1 tablet by mouth once daily C HOL: 143 (02/14/2018) HDL: 48 (02/14/2018) Cesario Newberry MD TeleHealth: 6 0 BIV 100 Cesario Newberry MD TeleHealth Cesario Newberry MD :ef 35 pro normal Cesario Newberry MD Cardiology Follow up Cesario pittman MD Cardiology Follow up : H er updated medication list for this problem includes: Pravastatin Sodium 40 Mg Tabs (Pravastatin sodium) ..... Take 1 tablet by mouth once daily C HOL: 143 (02/14/2018) HDL: 48 (02/14/2018) Cesario Newberry MD Cardiology Follow up Cesario pittman MD Cardiology Follow up Cesario pittman MD Cardiology Follow up : c orrected iwth iv ioron, up tod date with colon, got anemic iwth pancreatits Cesario Newberry MD Cardiology Follow up Cesario pittman MD Cardiology Follow up Cesario pittman MD Cardiology Follow up Cesario pittman MD Cardiology Follow up : N EG JJ n eg gb z ero calicume, neg treamill N O CAD 17 BY CATH, n ml cath 06, neg hep screnn, neg tele Cesario Newberry MD Cardiology Follow up : 3 5 Cesario Newberry MD Cardiology Follow up :60 BIV 100 0 Cesario Newberry MD :mild Cesario Newberry MD :35 Cesario Newberry MD Electrophysiology follow up Jord eileen Tracy Electrophysiology follow up Jord eileen Tracy Electrophysiology follow up Jord eileen Tracy Electrophysiology follow up Jord eileen Tracy Electrophysiology FOLLOW UP Jord eileen Tracy Electrophysiology FO LLOW UP : T he following medications were removed from the medication list: Coreg 3.125 Mg Oral Tablet (Carvedilol) ..... One tab. twice daily Dominic Tracy Electrophysiology FO LLOW UP : T he following medications were removed from the medication list: Coreg 3.125 Mg Oral Tablet (Carvedilol) ..... One tab. twice daily Dominic Tracy Electrophysiology FO LLOW UP :normal device function w ell healing scar Dominic Tracy Cardiology follow up Cesario pittman MD Cardiology follow up:25 Cesario simental MD Cardiology follow up:MILD Cesario Newberry MD Cardiology follow up :NEG JJ n eg gb z ero calicume, neg treamill N O CAD 17 BY CATH, n ml cath 06, neg hep screnn, neg tele Cesario Newberry MD Cardiology follow up : c orrected iwth iv ioron, up tod date with colon, got anemic iwth pancreatits Cesario Newberry MD Cardiology follow up:SET AT 60 B IV 100 Cesario Newberry MD Cardiology [facility] Demarcus Cardiology Dominic Tracy Cardiology:normal de vice function w ell healing scar O rders: G lobal No Charge (CPT-29801) [facility] Cardiology [facility] Electrophysiology: O rders: G lobal No Charge (CPT-07740) Kristal Gasca MD Electrophysiology: O rders: G lobal No Charge (CPT-82648) ulius Campos ZAMORANO Electrophysiology Saulius Suman rice MD Electrophysiology Saulius Suman rice MD Electrophysiology: O rders: 9 9213 MOD Complex (CPT-77581) C OMPREHENSIVE METABOLIC PANEL, W/EGFR (31962) P artial Thromboplastin Time, Activated (763) P ROTHROMBIN TIME WITH INR (8847) C BC (INCLUDES DIFF/PLT) (6399) U RINALYSIS, COMPLETE (5463) [facility] Electrophysiology: O rders: 9 14 MOD Complex (CPT-54929) C OMPREHENSIVE METABOLIC PANEL, W/EGFR (48232) P artial Thromboplastin Time, Activated (763) P ROTHROMBIN TIME WITH INR (8847) C BC (INCLUDES DIFF/PLT) (6399) U RINALYSIS, COMPLETE (5463) [facility] O rders: E KG (CPT-54660) 9 9213 MOD Complex (CPT-12726) C OMPREHENSIVE METABOLIC PANEL, W/EGFR (03927) P artial Thromboplastin Time, Activated (763) P ROTHROMBIN TIME WITH INR (8847) C BC (INCLUDES DIFF/PLT) (6399) U RINALYSIS, COMPLETE (546) Dominic Demarcus Electrophysiology: O rders: 9 9213 MOD Complex (CPT-58812) C OMPREHENSIVE METABOLIC PANEL, W/EGFR (16710) P artial Thromboplastin Time, Activated (763) P ROTHROMBIN TIME WITH INR (8847) C BC (INCLUDES DIFF/PLT) (6399) U RINALYSIS, COMPLETE (546) Dominic Demarcus Electrophysiology:CH OL: 143 (02/14/2018) HDL: 48 (02/14/2018) O rders: 9 9213 MOD Complex (CPT-54278) C OMPREHENSIVE METABOLIC PANEL, W/EGFR (40948) P artial Thromboplastin Time, Activated (763) P ROTHROMBIN TIME WITH INR (8847) C BC (INCLUDES DIFF/PLT) (6399) U RINALYSIS, COMPLETE (5462) [facility] Electrophysiology: s /p attempted BiV ICD implantation 10/27/18. No LV lead. N ormal function. I ncision well healed. s chedule LV lead addition on february 23 2019 O rders: B I-V AICD Implant - [facility] (*) 9213 MOD Complex (CPT-02143) C OMPREHENSIVE METABOLIC PANEL, W/EGFR (04591) P artial Thromboplastin Time, Activated (763) P ROTHROMBIN TIME WITH INR (8847) C BC (INCLUDES DIFF/PLT) (6399) U RINALYSIS, COMPLETE (546) [facility] E F 25% by echo doppler 10/27/18. s /p BiV ICD. No LV lead. Jose Delarosa Electrophysiology: E F 25% by echo doppler 10/27/18. s /p BiV ICD. No LV lead. Jose Delarosa Electrophysiology: s /p BiV ICD. No LV lead. Jose Delarosa Electrophysiology: s /p attempted BiV ICD implantation 10/27/18. No LV lead. N ormal function. I ncision well healed. Jose Delarosa Electrophysiology ho spital follow up: E F 25% by echo doppler 10/27/18. s /p BiV ICD. No LV lead. Her updated medication list for this problem includes: Aldactone 25 Mg Oral Tablet (Spironolactone) ..... 1/2 a day Losartan Potassium 25 Mg Oral Tablet (Losartan potassium) ..... Take one tablet daily Jose Delarosa Electrophysiology ho spital follow up: E F 25% by echo doppler 10/27/18. s /p BiV ICD. No LV lead. Her updated medication list for this problem includes: Aldactone 25 Mg Oral Tablet (Spironolactone) ..... 1/2 a day Losartan Potassium 25 Mg Oral Tablet (Losartan potassium) ..... Take one tablet daily Jose Delarosa Electrophysiology ho spital follow up: s /p BiV ICD. No LV lead. Jose Delarosa Electrophysiology ho spital follow up: s /p attempted BiV ICD implantation 10/27/18. No LV lead. N ormal function. I ncision well healing. Jose Delarosa Electrophysiology -p re-op BiV ICD implantaiton.: N YHA class III. Echo doppler today 10/10/18, results EF 30% with LV dyssynchrony due to to LBBB, R ecomend BiV ICD implantaiton. & #13;The risks and benefits of ICD implantation have been discussed with the patient in this shared decision making encounter. A copy of the following evidence based decision tool on ICD has been given to the patient. [email or web address]-content/uploads/[email or web address] Her updated medication list for this problem includes: Aldactone 25 Mg Oral Tablet (Spironolactone) ..... 1/2 a day Losartan Potassium 25 Mg Oral Tablet (Losartan potassium) ..... Take one tablet daily Kristal Gasca MD Electrophysiology -p re-op BiV ICD implantaiton.: E cho doppler today 10/10/18, results EF 30% with LV dyssynchrony due to to LBBB, R ecomend BiV ICD implantaiton. The risks and benefits of ICD implantation have been discussed with the patient in this shared decision making encounter. A copy of the following evidence based decision tool on ICD has been given to the patient. [email or web address]-content/uploads/[email or web address] Her updated medication list for this problem includes: Aldactone 25 Mg Oral Tablet (Spironolactone) ..... 1/2 a day Losartan Potassium 25 Mg Oral Tablet (Losartan potassium) ..... Take one tablet daily Kristal Gasca MD Electrophysiology -p re-op BiV ICD implantaiton.: N YHA class III. E cho doppler today 10/10/18, results pending. If EF < 35%, consider BiV ICD implantaiton. L ast EF 45% by echo 01/27/18. H er updated medication list for this problem includes: Aldactone 25 Mg Oral Tablet (Spironolactone) ..... 1/2 a day Losartan Potassium 25 Mg Oral Tablet (Losartan potassium) ..... Take one tablet daily Jose Washington Electrophysiology -p re-op BiV ICD implantaiton.: Raymon tyler home sleep study. Orders: Ada garcia Study Home (CPT-08094) Jose Washington Electrophysiology -p re-op BiV ICD implantaiton.: Raymon tyler PFTs. Orders: F VC - 14472 ([id number]) F RC - 01331 ([id number]) D LCO - 14136 ([id number]) Her updated medication list for this problem includes: Aldactone 25 Mg Oral Tablet (Spironolactone) ..... 1/2 a day Losartan Potassium 25 Mg Oral Tablet (Losartan potassium) ..... Take one tablet daily Jose Washington Electrophysiology -p re-op BiV ICD implantaiton.: E cho doppler today 10/10/18, results pending. If EF < 35%, consider BiV ICD implantaiton. Jose Delarosa Electrophysiology -p re-op BiV ICD implantaiton.: E cho doppler today 10/10/18, results pending. If EF < 35%, consider BiV ICD implantaiton. L ast EF 45% by echo 01/27/18. Her updated medication list for this problem includes: Aldactone 25 Mg Oral Tablet (Spironolactone) ..... 1/2 a day Losartan Potassium 25 Mg Oral Tablet (Losartan potassium) ..... Take one tablet daily Jose Delarosa Electrophysiology -p re-op BiV ICD implantaiton.: E cho doppler today 10/10/18, results pending. If EF < 35%, consider BiV ICD implantaiton. Will patient tonight after results viewable. L ast EF 45% by echo 01/27/18. The risks and benefits of ICD implantation have been discussed with the patient in this shared decision making encounter. A copy of the following evidence based decision tool on ICD has been given to the patient. [email or web address]-content/uploads/[email or web address] Her updated medication list for this problem includes: Aldactone 25 Mg Oral Tablet (Spironolactone) ..... 1/2 a day Losartan Potassium 25 Mg Oral Tablet (Losartan potassium) ..... Take one tablet daily Jose Delarosa [facility] Follow up Nii Newberry MD [facility]iology Hospital Follow up Nii Newberry MD [facility] Follow up : u p to45 o n eliezer and alactone Cesario Newberry MD [facility] Follow up : p ro nomral now Cesario Newberry MD [facility] Follow up : 4 .3 per pt Cesario Newberry MD [facility] Hospital Follow up : c orrected iwth iv ioron, up tod date with colon, got anemic iwth pancreatits Cesario Newberry MD Cardiology [facility] Follow up :j ust left hosap Cesario Newberry MD [facility] Follow up :neg gb z ero calicume, neg treamill N O CAD 17 BY CATH, n ml cath 06, neg hep screnn, neg tele Cesario [facility]berry [facility] Follow up : H er updated medication list for this problem includes: Pravachol 40 Mg Oral Tablet (Pravastatin sodium) ..... One tab. daily C HOL: 143 (02/14/2018) HDL: 48 (02/14/2018) Cesario Newberry MD Cardiology:4.3 per pt Cesario morrissey MD Cardiology Cesario Newberry MD Cardiology: H er updated medication list for this problem includes: Pravachol 40 Mg Oral Tablet (Pravastatin sodium) ..... One tab. daily C HOL: 143 (02/14/2018) HDL: 48 (02/14/2018) Cesario Newberry MD Cardiology:corrected iwth iv ioron, up tod date with colon Cesario Newberry MD Cardiology:up to45 Cesario Newberry MD Cardiology:neg tele Cesario mora MD Cardiology Cesario Newberry MD Cardiology:pro nomral now Cesario Newberry MD Cardiology:zero rajendra cume, neg treamill N O CAD 17 BY CATH, n ml cath 06, neg hep screnn, neg tele Cesario Newberry MD EP Follow up - No in dication of PPM:Orders: E KG (CPT-80856) C omplete Echo (CPT-05276) 9 9213 LTD. Complex (CPT-96107) S chedule Followup (*) Her updated medication list for this problem includes: Aldactone 25 Mg Oral Tablet (Spironolactone) ..... 1/2 a day Losartan Potassium 50 Mg Oral Tablet (Losartan potassium) ..... Take one tab daily Jose Washington EP Follow up - No in dication of PPM:Plan for echo in 6 months to assess LVF. If EF < 35%, consider BiV ICD implantation. Orders: C omplete Echo (CPT-85673) 9 9275 LTD. Complex (CPT-89022) S chedule Followup (*) Her updated medication list for this problem includes: Aldactone 25 Mg Oral Tablet (Spironolactone) ..... 1/2 a day Losartan Potassium 50 Mg Oral Tablet (Losartan potassium) ..... Take one tab daily Jose Delarosa EP Follow up - No in dication of PPM:Treadmill stress test report on 02/28/18 revealed 117% MPHR achieved with SR and LBBB on baseline EKG. No indication of PPM. No documented bradycardia < 40 bpm. O rders: C omplete Echo (CPT-14147) 9 9213 LTD. Complex (CPT-18948) S chedule Followup (*) Jose Delarosa Electrophysiology Fo llow up : H er updated medication list for this problem includes: Aldactone 25 Mg Oral Tablet (Spironolactone) ..... 1/2 a day Losartan Potassium 50 Mg Oral Tablet (Losartan potassium) ..... Take one tab daily Orders: E KG (CPT-10715) S TR - Routine (CPT-43351) 9 9214 MOD Complex (CPT-75783) Jose Delarosa Electrophysiology Fo llow up : Chronotropic incompetence documented on Telesentry monitor report. H er updated medication list for this problem includes: Aldactone 25 Mg Oral Tablet (Spironolactone) ..... 1/2 a day Losartan Potassium 50 Mg Oral Tablet (Losartan potassium) ..... Take one tab daily Orders: S TR - Routine (CPT-80362) 9 9214 MOD Complex (CPT-14185) Jose Delarosa Electrophysiology Fo llow up : H er updated medication list for this problem includes: Aldactone 25 Mg Oral Tablet (Spironolactone) ..... 1/2 a day Losartan Potassium 50 Mg Oral Tablet (Losartan potassium) ..... Take one tab daily Orders: E KG (CPT-57629) S TR - Routine (CPT-09550) Jose Delarosa Electrophysiology Fo llow up : Chronotropic incompetence documented on Telesentry monitor report. H er updated medication list for this problem includes: Aldactone 25 Mg Oral Tablet (Spironolactone) ..... 1/2 a day Losartan Potassium 50 Mg Oral Tablet (Losartan potassium) ..... 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 One tab. 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 Gasca for evaluation for possible BiVentricular pacemaker. T he following medications were removed from the medication list: Carvedilol 3.125 Mg Oral Tablet (Carvedilol) ..... 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 Unable to tolerate Coreg due to hypotension and fatigue. T he following medications were removed from the medication list: Carvedilol 3.125 Mg Oral Tablet (Carvedilol) ..... 1 tab bid Her updated medication list for this problem includes: Aldactone 25 Mg Oral Tablet (Spironolactone) ..... 1/2 a day Losartan Potassium 50 Mg Oral Tablet (Losartan potassium) ..... 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 One tab. 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 Change meds. check ehco. place tele T he following medications were removed from the medication list: Toprol Xl 25 Mg Oral Tablet Extended Release 24 Hour (Metoprolol succinate) ..... Take one tab daily Her updated medication list for this problem includes: Carvedilol 3.125 Mg Oral Tablet (Carvedilol) ..... 1 tab bid Aldactone 25 Mg Oral Tablet (Spironolactone) ..... 1/2 a day Losartan Potassium 50 Mg Oral Tablet (Losartan potassium) ..... Take one tab daily Concetta Harvey [facility] Follow up :NOT SICK ENOUGH TO DO PACER Cesario Newberry MD [facility] Follow up :NO CAD 17 BY CATH b 12 ok n ml cath 06, neg hep alexandre Newberry MD [facility] Follow up :40 BY CATH DO TO LBBB, NO CAD,, NOT SICK ENOUGH TO PUT IN BIV Cesario Newberry MD [facility] Follow up Bales elizabet Newberry MD [facility] Follow up :HAD COLONL CPY 6 MONTSH AGO c orrected with infsuion, b12 marii Newberry MD Cardiology Follow up ;first lhc:40, may need biv pacer, will cathj Cesario Newberry MD Cardiology Follow up ;first lhc:b12 ok n ml cath 06, neg hep alexandre Newberry MD Cardiology Follow up ;first lhc:CHOL: 225.0 (08/30/2016) HDL: 59.0 (08/30/2016) T.0 (08/30/2016) o n new rx H er updated medication list for this problem includes: Pravachol 40 Mg Tabs (Pravastatin sodium) ..... One tab. daily Cesario Newberry MD Cardiology Follow up ;first lhc:corrected with infsuion, b12 marii Newberry MD Cardiology New Patie nt :nml cath 06, lbbb at the time, lv was nromal Cesario Newberry MD Cardiology New Patient :nml cath 06, neg hep alexandre Newberry MD Date Name Complete Echo PROBNP, N TERMINAL LIPASE AMYLASE COMPREHENSIVE METABO LIC PANEL, W/EGFR HEMOGLOBIN A1c IRON AND TOTAL IRON BINDING CAPACITY FERRITIN CBC (INCLUDES DIFF/P LT) Microalb/Creatinine Urine, Random DLCO - 53481 FRC - 21679 FVC - 03249 Complete Echo Lipoprotein (a) BASIC METABOLIC PANE L W/EGFR PROBNP, N TERMINAL Complete Echo DLCO - 34519 FRC - 34993 FVC - 91953 Complete Echo DLCO - 21299 FRC - 36476 FVC - 51896 COVID19 High Affinit y Antibodies (LC) CBC (INCLUDES DIFF/P LT) FERRITIN IRON AND TOTAL IRON BINDING CAPACITY BASIC METABOLIC PANE L W/EGFR PROBNP, N TERMINAL VITAMIN B12 C-REACTIVE PROTEIN Complete Echo Aorta Duplex Ultraso und Complete Echo C-REACTIVE PROTEIN VITAMIN B12 PROBNP, N TERMINAL BASIC METABOLIC PANE L W/EGFR IRON AND TOTAL IRON BINDING CAPACITY FERRITIN CBC (INCLUDES DIFF/P LT) Complete Echo URINALYSIS, COMPLETE CBC (INCLUDES DIFF/P LT) PROTHROMBIN TIME WIT H INR Partial Thromboplast in Time, Activated COMPREHENSIVE METABO LIC PANEL, W/EGFR BI-V AICD Implant - [facility] PARTIAL THROMBOPLAST IN TIME, ACTIVATED URINALYSIS, COMPLETE W/REFLEX TO CULTURE COMPREHENSIVE METABO LIC PANEL W/EGFR PROTHROMBIN TIME WIT H INR BI-V AICD Implant - [facility] Sleep Study Home DLCO - 99419 FRC - 15759 FVC - 84675 IRON AND TOTAL IRON BINDING CAPACITY FERRITIN CBC (INCLUDES DIFF/P LT) CT Angio Chest (Aort a) Complete Echo Vitamin D, 25-Hydrox y CT Angio Chest (Aort a) Vitamin D, 25-Hydrox y Complete Echo Complete Echo STR - Routine LIPID PANEL PROBNP, N TERMINAL CT, Coronary Calcium Score PROBNP, N TERMINAL IRON AND TOTAL IRON BINDING CAPACITY FERRITIN CBC (INCLUDES DIFF/P LT) BASIC METABOLIC PANE L W/EGFR Mobile Cardiac Tele IRON AND TOTAL IRON BINDING CAPACITY FERRITIN CBC (INCLUDES DIFF/P LT) PROBNP, N TERMINAL BASIC METABOLIC PANE L W/EGFR PROBNP, N TERMINAL Complete Echo BASIC METABOLIC PANE L W/EGFR Complete Echo PROBNP, N TERMINAL Cardiac Cath - Left - [facility] PROBNP, N TERMINAL IRON AND TOTAL IRON BINDING CAPACITY FERRITIN CBC (INCLUDES DIFF/P LT) LIPID PANEL VITAMIN D, 25-HYDROX Y, LC/MS/MS PARTIAL THROMBOPLAST IN TIME, ACTIVATED PROTHROMBIN TIME WIT H INR Complete Echo IRON AND TOTAL IRON BINDING CAPACITY VITAMIN B12 FERRITIN HISTORY OF PROCEDURES Procedure Date Procedure Name Provider Procedure Notes S tatus Complex e/m visit ad d on Cesario Newberry MD completed EKG Cesario Newberry MD complete d EKG Kristal caballero MD completed EKG Kristal caballero MD completed EKG Kristal caballero MD completed ICM Interrogation, Remote (Prof) Cesario Newberry MD INTERROGATION EVAL REMOTE </30 D CV MNTR SYS completed ICM Interrogation, Remote (Tech) Cesario Newberry MD INTERROGATION EVAL REMOTE </30 D TECH REVIEW completed Schedule Followup Kristal rice MD with SK in 3 months completed EKG Kristal caballero MD completed FVC / MVV - 52882 Kristal rice MD completed BLOOD COUNT HEMOGLOBIN Kristal méndez MD completed FRC - 73885 Kristal caballero MD completed SpO2 w/o 6min walk/titration Kristal Gasca MD completed DLCO - 59632 Kristal caballero MD completed Schedule Followup Kristal rice MD in 6 mo completed EKG Kristal caballero MD completed Stress EKG Lucrecia Fried MD completed CT- Coronary CA score Cesario Newberry MD completed EKG Kristal caballero MD completed Event Monitor Cesario Newberry MD compl eted EKG Cesario Newberry MD complete d SNOMED-CT: 195332358297180 Current Medications Documented Cesario Newberry MD completed SNOMED-CT: 787373460937108 Current Medications Documented Cesario Newberry MD completed EKG Cesario Newberry MD complete d SNOMED-CT: 246508086111635 Current Medications Documented Cesario Newberry MD completed
--- OUTSIDE RECORDS SUMMARY | 2024-11-25 00:52 | XMS_ITS | Clinical Summary ---
Author Organization [facility] Address [address] [place] [id number] Care Team Providers Care Community Placement Worker Name Role Phone Unavailable Primary Care Provider Unavailabl e Social History Tobacco Use Types Packs/Day Years Used Date Smoking Tobacco: Never Assessed Comments Unknown Sex and Gender Information Value Date Recorded Sex Assigned at Not on file Legal Sex Female 7:15 PM CDT Gender Identity Not on file Sexual Orientation Not on file Plan of Treatment Health Maintenance Due Date Last Done Comments Colorectal Cancer Screening Colonoscopy (10 Years) 1951 Hepatitis C 1969 DTaP, Tdap and Td Vaccines ( 1 - Tdap) 1970 Mammogram Screening 1991 Pneumococcal Vaccine: 50+ Ye ars (1 of 1 - PCV) 2001 Zoster Vaccines (1 of 2) 2001 Dexa Scan (General) 2016 COVID-19 Vaccine ( - 2023-2 5 season) 2024 RSV Immunization or 60+ Years (1 - 1-dose 75+ series) 2026 Meningococcal B Vaccine Aged Out No l onger eligible based on patient's age to complete this topic Meningococcal Vaccine Aged Out No noemí scott eligible based on patient's age to complete this topic RSV Immunizations Under 20 Months Aged Out No longer eligible based on patient's age to complete this topic
[2024-11-25 12:49] VITALS: BP 147/87; PULSE 81; RESP 16; TEMP 36.4; O2SAT 94; BMI 26.4
[2024-11-25] MEDS: LACTATED RINGERS 1,000 ML 150 ML IV CONT (12:52)
--- NOTE | 2024-11-25 13:10 | P.PNAN_ITS ---
Anes - Initial Pre Proc Eval Procedure: Operation Date: 11/25/24 14:00 Proposed Procedures p Esophagogastroduodenoscopy - Dominguez Mathias MD Date/Time: 11/25/24 13:10 Surgeon: Dominguez Mathias MD Pre Op Diagnosis: Gastro-esophageal reflux disease without esophagit Patient Data Age: 74 Gender: F Height: 1.65 m Weight: 71.9 kg Last Vital Signs Temp 97.5 F L 11/25/24 12:49 Pulse 81 11/25/24 12:49 Resp 16 11/25/24 12:49 BP 147/87 H 11/25/24 12:49 Pulse Ox 94 11/25/24 12:49 O2 Del Method Room Air 11/25/24 12:49 Allergies Allergy/AdvReac Type Severity Reaction Status Date / Time metoclopramide Allergy Severe SEIZURES Verified 11/25/24 12:43 propoxyphene Allergy Severe NAUSEA Verified 11/25/24 12:43 Cephalosporins Allergy Mild SWELLING Verified 11/25/24 12:43 OF MOUTH AND THROAT Penicillins Allergy Mild SWELLING, Verified 11/25/24 12:43 HIVES prochlorperazine Allergy Mild SEIZURES Verified 11/25/24 12:43 promethazine Allergy Mild UNSURE Verified 11/25/24 12:43 capsaicin (From Zostrix) AdvReac Intermediate Joint Pain Verified 11/25/24 12:43 Home Medications ?Medication ?Instructions ?Recorded ?Confirmed ?Type folic acid 1 mg tablet 1 mg PO DAILY #90 tabs 02/14/21 11/25/24 Rx gabapentin 300 mg capsule 300 mg PO TID #90 caps 04/05/21 11/25/24 Rx ascorbate calcium (vitamin C) 500 500 mg PO DAILY 04/09/21 11/25/24 History mg capsule calcium 600 mg (as 1 tablet PO DAILY 04/09/21 11/25/24 History carbonate)-vitamin D3 5 mcg (200 unit) tablet methotrexate sodium 2.5 mg tablet 8 mg PO WEEKLY 04/09/21 11/25/24 History multivit with minerals-iron 18 1 tablet PO DAILY 04/09/21 11/25/24 History mg-folic ac 400 mcg-vit K 25 mcg tablet (Adults Multivitamin) pravastatin 40 mg tablet 40 mg PO DAILY 04/29/23 11/25/24 History abatacept 125 mg/mL subcutaneous 125 mg subcut WEEKLY 05/18/23 11/25/24 History auto-injector (Orencia ClickJect) hydroxychloroquine 200 mg tablet 100 mg PO BID 12/24/23 11/25/24 History omeprazole 40 mg capsule,delayed 40 mg PO DAILY #30 caps 02/12/24 11/25/24 Rx release ketoconazole 2 % topical cream 1 applic topical DAILY #30 grams 02/17/24 11/25/24 Rx meclizine 12.5 mg tablet 12.5 mg PO TID PRN dizziness #14 05/21/24 11/18/24 Rx tabs cyclobenzaprine 10 mg tablet 10 mg PO TID PRN muscle spasm #30 08/24/24 11/25/24 Rx tabs zinc sulfate 50 mg zinc (220 mg) 50 mg PO DAILY 09/07/24 11/25/24 History tablet alendronate 70 mg tablet (Fosamax) 70 mg PO WEEKLY #12 tabs 09/27/24 11/25/24 Rx albuterol sulfate 90 mcg/actuation 1 inh inhalation Q4H PRN 10/29/24 11/18/24 Rx aerosol inhaler bronchospasm #6.7 grams methenamine hippurate 1 gram tablet 1 g PO DAILY 11/18/24 11/25/24 History Patient hx anesthesia problems: none Family hx anesthesia problems: none Results Review: All pre-operative results and documents have been reviewed as part of the pre-operative evaluation. [facility] Past Medical History Medical History OAB (overactive bladder) Contact dermatitis Dermatitis Acute bronchitis Persistent cough for 3 weeks or longer Lumbar back pain [place]-neck deformity of finger of left hand Osteoarthritis of foot, right Rheumatoid arteritis COVID Acute sinusitis Eustachian tube dysfunction Unspecified hearing loss Fluid level behind tympanic membrane of left ear Bulging lumbar disc GERD without esophagitis Encounter for screening for other viral diseases Rheumatoid arthritis with rheumatoid factor of multiple sites without organ or systems involvement Osteopenia Bundle branch block Depression Arthritis Anxiety Pacemaker BMI 23.0-23.9, adult Surgical History Surgical History H/O Spinal surgery History of knee replacement History of Nico fundoplication History of augmentation mammoplasty Family History Family History Father Family history of malignant neoplasm Parkinsons Mother Family history of diabetes mellitus in first degree relative Diabetes mellitus Grandparent Family history of tuberculosis Sibling Pulmonary fibrosis, unspecified Sibling COVID-19 Other Family history of kidney disease Social History Social History Social History: Caffeine-none Smoking status: Never smoker Second hand tobacco smoke exposure: No Alcohol intake: never Substance use: never Substance use type: does not use Do You Feel Safe in your Home?: Yes Lack of Transportation: No Lack of Food: Never True Current Housing: I Have Housing Concerned About Future Housing: No Difficulty Paying Gas/Electric Bills: No Difficulty Paying for Meds: No Currently Unemployed: No Education: Bachelor's Degree Difficulty w/ Childcare or Family Care: No Living arrangements: with family Additional living arrangements comments: LIVES WITH SON 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 Gender identity (if verbalized by the patient): Female Sexual Orientation (if Verbalized by the Patient): Straight or Heterosexual Spiritual care concerns: No Agree to blood products: Yes Anes - Eval Final PreProcedure Day of Procedure 11/25/24 13:10 Patient weight: normal Heart: regular rate and rhythm Lungs: clear to auscultation Airway: Mallampati scale class II Neurological: alert and oriented Last oral intake: >/= 8 hours ASA classification: III Emergent: no Anesthetic plan: proceed Anesthesia type and monitoring: general GIVS and standard monitoring Results Review: All pre-operative results and documents have been reviewed as part of the pre- operative evaluation. Informed Consent: The patient's anesthetic plan and its attendant risks and benefits were discussed with the patient/family/POA. Questions were solicited and answers provided to the satisfaction of the patient/family/POA.
--- NOTE | 2024-11-25 14:08 | P.HP_ITS ---
H&P: HPI History of Present Illness Date/Time: 11/25/24 14:08 Chief Complaint: Dysphagia-heartburn Narrative: this patient has chronic heartburn for several years, however lately she has been complaining of difficulty to swallow solid food but not liquids. She is referred for EGD per Review of Systems Review of Systems: All systems reviewed & are unremarkable except as noted in HPI and below PMFSH Past Medical History Medical History OAB (overactive bladder) Contact dermatitis Dermatitis Acute bronchitis Persistent cough for 3 weeks or longer Lumbar back pain [place]-neck deformity of finger of left hand Osteoarthritis of foot, right Rheumatoid arteritis COVID Acute sinusitis Eustachian tube dysfunction Unspecified hearing loss Fluid level behind tympanic membrane of left ear Bulging lumbar disc GERD without esophagitis Encounter for screening for other viral diseases Rheumatoid arthritis with rheumatoid factor of multiple sites without organ or systems involvement Osteopenia Bundle branch block Depression Arthritis Anxiety Pacemaker BMI 23.0-23.9, adult Surgical History Surgical History H/O Spinal surgery History of knee replacement History of Nico fundoplication History of augmentation mammoplasty Family History Family History Father Family history of malignant neoplasm Parkinsons Mother Family history of diabetes mellitus in first degree relative Diabetes mellitus Grandparent Family history of tuberculosis Sibling Pulmonary fibrosis, unspecified Sibling COVID-19 Other Family history of kidney disease Social History Social History Social History: Caffeine-none Smoking status: Never smoker Second hand tobacco smoke exposure: No Alcohol intake: never Substance use: never Substance use type: does not use Do You Feel Safe in your Home?: Yes Lack of Transportation: No Lack of Food: Never True Current Housing: I Have Housing Concerned About Future Housing: No Difficulty Paying Gas/Electric Bills: No Difficulty Paying for Meds: No Currently Unemployed: No Education: Bachelor's Degree Difficulty w/ Childcare or Family Care: No Living arrangements: with family Additional living arrangements comments: LIVES WITH SON 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 Gender identity (if verbalized by the patient): Female Sexual Orientation (if Verbalized by the Patient): Straight or Heterosexual Spiritual care concerns: No Agree to blood products: Yes Meds Home Medications and Allergies Home Medications ?Medication ?Instructions ?Recorded ?Confirmed ?Type folic acid 1 mg tablet 1 mg PO DAILY #90 tabs 02/14/21 11/25/24 Rx gabapentin 300 mg capsule 300 mg PO TID #90 caps 04/05/21 11/25/24 Rx ascorbate calcium (vitamin C) 500 500 mg PO DAILY 04/09/21 11/25/24 History mg capsule calcium 600 mg (as 1 tablet PO DAILY 04/09/21 11/25/24 History carbonate)-vitamin D3 5 mcg (200 unit) tablet methotrexate sodium 2.5 mg tablet 8 mg PO WEEKLY 04/09/21 11/25/24 History multivit with minerals-iron 18 1 tablet PO DAILY 04/09/21 11/25/24 History mg-folic ac 400 mcg-vit K 25 mcg tablet (Adults Multivitamin) pravastatin 40 mg tablet 40 mg PO DAILY 04/29/23 11/25/24 History abatacept 125 mg/mL subcutaneous 125 mg subcut WEEKLY 05/18/23 11/25/24 History auto-injector (Orencia ClickJect) hydroxychloroquine 200 mg tablet 100 mg PO BID 12/24/23 11/25/24 History omeprazole 40 mg capsule,delayed 40 mg PO DAILY #30 caps 02/12/24 11/25/24 Rx release ketoconazole 2 % topical cream 1 applic topical DAILY #30 grams 02/17/24 11/25/24 Rx meclizine 12.5 mg tablet 12.5 mg PO TID PRN dizziness #14 05/21/24 11/18/24 Rx tabs cyclobenzaprine 10 mg tablet 10 mg PO TID PRN muscle spasm #30 08/24/24 11/25/24 Rx tabs zinc sulfate 50 mg zinc (220 mg) 50 mg PO DAILY 09/07/24 11/25/24 History tablet alendronate 70 mg tablet (Fosamax) 70 mg PO WEEKLY #12 tabs 09/27/24 11/25/24 Rx albuterol sulfate 90 mcg/actuation 1 inh inhalation Q4H PRN 10/29/24 11/18/24 Rx aerosol inhaler bronchospasm #6.7 grams methenamine hippurate 1 gram tablet 1 g PO DAILY 11/18/24 11/25/24 History Allergies Allergy/AdvReac Type Severity Reaction Status Date / Time metoclopramide Allergy Severe SEIZURES Verified 11/25/24 12:43 propoxyphene Allergy Severe NAUSEA Verified 11/25/24 12:43 Cephalosporins Allergy Mild SWELLING Verified 11/25/24 12:43 OF MOUTH AND THROAT Penicillins Allergy Mild SWELLING, Verified 11/25/24 12:43 HIVES prochlorperazine Allergy Mild SEIZURES Verified 11/25/24 12:43 promethazine Allergy Mild UNSURE Verified 11/25/24 12:43 capsaicin (From Zostrix) AdvReac Intermediate Joint Pain Verified 11/25/24 12:43 Vital Signs Vital Signs - 24 hr 11/25/24 12:49 Temperature 97.5 F L Pulse Rate 81 Respiratory Rate 16 Blood Pressure 147/87 H Pulse Oximetry 94 Oxygen Delivery Room Air Exam Const: General: cooperative and healthy appearing Resp: Effort & Inspection: normal respiratory effort and able to speak in complete sentences Auscultation: clear to auscultation bilaterally Cardio: Rate: regular rate Rhythm: regular rhythm GI: Inspection: normal to inspection GI Palp: No No hepatosplenomegaly present Auscultation: normal bowel sounds Rectal Exam: deferred Skin: General skin exam: normal color Psych: Appearance: grossly normal Mental Status: mental status grossly normal Assessment and Plan Assessment and plan (1) Dysphagia: Code(s): R13.10 - Dysphagia, unspecified Status: Acute Assessment and Plan: The patient is deemed a good candidate for the procedure. Consent signed. Will proceed.
[2024-11-25 14:36] VITALS: BP 95/53; PULSE 74; RESP 19; O2SAT 100
[2024-11-25 14:46] VITALS: BP 102/61; PULSE 73; RESP 19; O2SAT 100
[2024-11-25 14:56] VITALS: BP 117/67; PULSE 65; RESP 25; O2SAT 100
== END 2024-11-25 15:14 | disposition home or self-care (01) ==
PROVIDERS: PCP Family Medicine; Visit Provider Internal Medicine Gastroenterology
PROC: 0DJ08ZZ Inspection of Upper Intestinal Tract, Via Natural or Artificial Opening Endoscopic (ICD-10-PCS; CPT 43249; principal; 2024-11-25 14:00)
DX: K21.00 Gastro-esophageal reflux disease with esophagitis, without bleeding (principal); K22.2 Esophageal obstruction; K44.9 Diaphragmatic hernia without obstruction or gangrene
CPT/HCPCS: 43249; C1726; J2003; J2704; J7120

== ENCOUNTER 2025-01-04 14:30 | Outpatient (CLI) | payer MEDICARE, MEDICAID, SELFPAY ==
--- NOTE | ~2025-01-04 | MM_ITS ---
EXAMINATION: MM scrn tay implant BI w vero HISTORY: Screening mammogram TECHNIQUE: Craniocaudal and mediolateral oblique 3-D tomosynthesis images with implant displacement a nd synthetic 2-D images were generated. Craniocaudal and mediolateral oblique views of the breasts wi thout implant displacement were obtained using full field digital mammography. CAD analysis was submi tted and interpreted. COMPARISON: Comparison to multiple prior studies sequentially, with oldest reviewed study dated 05/29. BREAST PARENCHYMAL COMPOSITION: Dense: The breasts are heterogeneously dense, which may obscure small masses FINDINGS: There is no evidence of suspicious mass, calcification, or architectural distortion to sugg est malignancy in either breast. There has been no suspicious interval change. IMPRESSION: 1. No mammographic evidence of malignancy. 2. Recommend routine screening mammography in one year. BI-RADS Category 1: Negative Reviewed, dictated and finalized at location B.
== END 2025-01-04 14:31 | disposition home or self-care (01) ==
LOC: MICIMG 14:30
PROVIDERS: PCP Family Medicine; Visit Provider Family Medicine
DX: Z12.31 Encounter for screening mammogram for malignant neoplasm of breast (principal)
CPT/HCPCS: 77063; 77067

== ENCOUNTER 2025-01-28 01:41 | Day surgery (SDC) | payer MEDICARE, MEDICAID, SELFPAY ==
[2025-01-20 14:03] VITALS: BMI 26.4
--- OUTSIDE RECORDS SUMMARY | 2025-01-28 01:43 | XMS_ITS | Clinical Summary ---
Author Organization [facility] Address [address] [place] [address] Care Team Providers Care Side Door Worker Name Role Phone Primitivo Merchant MD Primary Care Provider [phone] Source Comments [facility],non-owned Affiliates and Associated Physician Practices is amultiple site organization consisting of ambulatory clinics and hospital sitesin [place], [place], [place] and [place]. This disclosure is being madepursuant to the Care Everywhere program and may not contain all information available regarding this patient. 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 Gender Identity Not on file Sexual Orientation Not on file Last Filed Vital Signs Vital Sign Reading Time Taken Comments Blood Pressure 118/78 01/01/2017 10:34 AM CDT Pulse 74 01/01/2017 10:34 AM CDT Temperature 36.1 C (97 F) 10/02/2016 9:37 AM FLYING TEACHER Respiratory Rate 20 09/16/2016 7:48 AM FLYING TEACHER Oxygen Saturation 97% 01/01/2017 10:34 AM CDT Inhaled Oxygen Concentration - - Weight 73.9 kg (163 lb) 01/01/2017 10:34 AM CDT Height 167.6 cm (5' 6) 01/01/2017 10:34 AM CDT Body Mass Index [...] patient's age to complete this topic Insurance [facility] MANAGED MEDICARE ADV Care Teams Side Door Worker Relationship Specialty Start Date End Date Primitivo Merchant MD [address] [place] [address] PCP - General 07/08/18
--- OUTSIDE RECORDS SUMMARY | 2025-01-28 01:44 | XMS_ITS | Referral Summary ---
Author Organization [facility] Address [address] [place] [address] Care Team Providers Care Sap Basis Name Role Phone Primitivo Merchant MD Primary Care Provider + [phone] Encounters Date Type Department Care Team Description 01/13/2025 Telephone [facility] [address] [place] [id number] Ronel Ty RN from Last 3 Months Allergies Active Allergy Reactions Criticality Noted Date [...] Other (See comments) Low 05/20/2019 Terfenadine Unknown Tetanus And Diphther. Tox (Pf) Other (See comments) Low 08/29/2016 Medications cycloSPORINE (RESTASIS) 0.05 % ophthalmic emulsion Take as directed 0 0 9 Active Additional Information Patient taking differently: 1 drop each eye Every 12 hours, Reported on 01/09/2022 venlafaxine XR (EFFEXOR XR) 150 mg 24 hr capsule take 1 capsule by oral route every day 90 3 4 Active Additional Information Patient taking differently:150 mgoral Daily after lunch, Informant: Self, Reported on 01/13/2025 ascorbic acid (VITAMIN C) 500 mg tablet,chewableI ndications:suppl ement Take 500 mg by mouth daily after lunch Active pravastatin (PRAVACHOL) 40 mg tabletIndication s:hyperlipidemia Take 40 mg by mouth daily after lunch 3 9 Active carvedilol (COREG) 3.125 mg tablet Take 1 tablet (3.125 mg total) by mouth 2 (two) times a day [...] mg by mouth nightly as needed Active Orencia ClickJect 125 mg/mL auto-injector 5 Active lansoprazole (PREVACID) 30 mg capsule Take 1 capsule (30 mg total) by mouth 2 (two) times a day 5 Active Active Problems Problem Noted Date Diagnosed Date 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 Overview (01/02/2022): Added automatically from request for surgery [id number] De Quervain's disease (radial styloid tenosynovi tis) 01/02/2022 Overview (01/02/2022): Added automatically from request for surgery [id number] Aortic dilatation 07/02/2018 Overview (07/02/2018): Ascending aorta [...] on file Legal Sex Female 2:59 PM RADIO SCRIPT 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 Gender Identity Not on file Sexual Orientation [...] 8:15 AM CDT Height 167.6 cm (5' 6) 01/03/2022 8:15 AM CDT Body Mass Index 24.21 01/03/2022 8:15 AM CDT Plan of Treatment Not on file Medical Devices Implanted Type Area Computer Security Specialist Device Identifier Shelf Expiration Date Model / Serial / Lot Icd-10/27/2018 Implanted:2018 by Unknown, Andreile (Quantity not on file) ICD Chest Biotronik ILIVIA7 [id number] / [id number] / Description:Implanted by Roni Brunson [id number] Lead (Ra)-10/27/2018 Implanted:2018 by Unknown, Notinfile (Quantity not on file) Lead Heart Biotronik SOLIA S53 [id number] / [id number] / Description:Implanted by [facility] Alex Brunson [id number] Lead (Rv)-10/27/2018 Implanted:2018 by Unknown, Notinfile (Quantity not on file) Lead Heart Biotronik PLEXA S65 [id number] / [id number] / Description:Implanted by AUDREY Brunson [id number] Lead (Cor Sinus)-02/23/2019 Implanted:2018 by Unknown, Notinfile (Quantity not on file) Lead Heart Biotronik SENTUS [id number] [id number] / [id number] / Description:Implanted by [facility] Alex Brunson [id number] [employer] [id number] Penumbra Coil 400 Rosa .02in 4mm 20cm Complex Large Volume Fully - [id number] Implanted:Qty: 1 on 06/11/2018 at [facility] [employer] Inc 07/01/2025 [id number] / / [id number] Penumbra Inc Ipyrdkv10 Pod 45cm Pack J-Soft Coil Embolization Sterile Latex Free - [id number] Implanted:Qty: 1 on 06/11/2018 at [facility] Penumbra Inc 02/22/2026 [id number] / / [id number] Daig Beatris[employer] [id number] Angio-Seal Vip Bondek-Plus 6fr .035in 70cm Hemostatic Latex Free - [id number] Implanted:Qty: 1 on 06/11/2018 at [facility] Daig [employer] 03/28/2019 [id number] / / [id number] Penumbra Inc [id number] Penumbra Coil 400 Rosa .02in 5mm 30cm Complex Large Volume Fully - [id number] Implanted:Qty: 1 on 06/11/2018 at [facility] Penumbra Inc 10/31/2023 [id number] / / [id number] Penumbra Inc Ioihuzn87 Pod 15cm Pack J-Soft Coil Embolization Sterile Latex Free - [id number] Implanted:Qty: 1 on 06/11/2018 at [facility] Penumbra Inc 02/16/2026 [id number] / / [id number] [employer] Inc [id number] Valeri 6mm 14cm 7.4 Loop Soft Radiopacity .018in Coil - [id number] Implanted:Qty: 1 on 06/11/2018 at [facility] [employer] 04/11/2023 [id number] / / [id number] Cook [employer] Inc [id number] Valeri 6mm 14cm 7.4 Loop Soft Radiopacity .018in Coil - [id number] Implanted:Qty: 1 on 06/11/2018 at [facility] [employer] Inc 04/11/2023 [id number] / / [id number] Penumbra Inc Ber7a3740 Penumbra Coil 400 Rosa .02in 6mm 30cm Complex Large Volume Fully - [id number] Implanted:Qty: 1 on 06/11/2018 at [facility] Pen[employer]ra Inc 10/28/2024 [id number] / / [id number] Penumbra Inc Kxlvwdn20 Pod 60cm Pack J-Soft Coil Embolization Sterile Latex Free - [id number] Implanted:Qty: 1 on 06/11/2018 at [facility] Penumbra Inc 02/22/2026 [id number] / / [id number] Penumbra Inc Ofwrdjp67 Pod 60cm Pack J-Soft Coil Embolization Sterile Latex Free - [id number] Implanted:Qty: 1 on 06/11/2018 at [facility] Pen[employer]ra Inc 02/22/2026 [id number] / / [id number] Penumbra Inc Hltncyx64 Pod 60cm Pack J-Soft Coil Embolization Sterile Latex Free - [id number] Implanted:Qty: 1 on 06/11/2018 at [facility] Pen[employer]ra Inc 02/22/2026 [id number] / / [id number] Allosource Freeze Dried Chips 4-10mm Graft 30ml Bone Cancellous [id number] - [id number] - [id number] Implanted:Qty: 1 on 01/09/2022 by Jean Ayala MD at [facility] Right: Wrist Allosource 07/01/2026 [id number] / [id number] / [id number] Trimed Inc Screw 24mm 3.5mm 3.5mm 4.5mm Bone Small Headless Screw Cannulated Screw System Titanium Accepts 1.1mm Terrie Wire L3524 - [id number] Implanted:Qty: 1 on 01/09/2022 by Jean Ayala MD at [facility] Right: Wrist Trimed Inc L3524 / / Trimed Inc Screw 18mm 3mm 3mm 4mm Bone Small Headless Screw Cannulated Screw System Titanium Accepts 1.1mm Terrie Wire L3018 - [id number] Implanted:Qty: 2 on 01/09/2022 by Jean Ayala MD at [facility] Right: Wrist Trimed Inc L3018 / / Explanted Type Area Computer Security Specialist Device Identifier Shelf Expiration Date Model / Serial / Lot Microaire Surgical Instruments 1600-445ns K Wire Fix [place] Bth End Ss [id number] - [id number] Explanted:Qty: 1 on 01/09/2022 by Jean Ayala MD at [facility] Right: Wrist [employer] 1600-445NS / / Trimed Inc Wire 120mm 1.1mm Fixation Terrie Nonsterile Wire-. - [id number] Explanted:Qty: 4 on 01/09/2022 by Pet, Jean Pedroza MD at [facility] Right: Wrist Trimed Inc WIRE-.07/29 20 / / Procedures Procedure Name Priority Date/Time Associated Diagnosis Comments HEPATITIS PANEL, ACUTE Routine 08/13/2019 1:24 PM RADIO SCRIPT WRITER Rheumatoid arthritis, seropositive, multiple sites (HCC) BONE MINERAL DENSITY 03/28/2015 from Last 3 Months or Most Recently Relevant to Health Maintenance Results * Hepatitis panel, acute (08/13/2019 1:24 PM RADIO SCRIPT WRITER) Hep A IgM Nonreactive Nonreactive [facility] Comment: Interpretive Data If test is reported as GRAYZONE, new sample should be drawn in two weeks for testing. Current interpretive data was last revised on 2016. Hep B core IgM Nonreactive Nonreactive [facility] Comment: Interpretive Data If test is reported as GRAYZONE, new sample should be drawn for testing. Current interpretive data was last revised on 2016. Hep C Ab Nonreactive Nonreactive [facility] Comment: Interpretive Data Positive results should be confirmed by a molecular method. If positive, a second separately collected sample should be submitted for Hepatitis C Virus (HCV) RNA Detection and Quantitation by Real-Time Reverse Gandy Dancer-PCR (RT-PCR). Current interpretive data was last revised on 2016. HepBsAg Nonreactive Nonreactive [facility] Blood specimen (specimen) 08/13/2019 1:24 PM RADIO SCRIPT WRITER 08/13/2019 4:28 PM RADIO SCRIPT WRITER us Aminta Prado MD LAB MICROBIOLOGY - GENERAL O RDERABLES Edited Result - Final [facility] [place] [address] * BONE MINERAL DENSITY (03/28/2015) Anatomical Region Laterality Modality Radiographic Naima ging Narrative 03/28/2015 Ordered by an unspecified provider. Historical Provider MD IZAGUIRRE DXA PROCEDURES Final Result from Last 3 Months or Most Recently Relevant to Health Maintenance Insurance [facility] MEDICARE ADVANTAGE [facility] Address: [address] [address] [place] [address] [facility] MEDICARE ADVANTAGE IDPA [facility] MEDICARE ADVANTAGE Advance Directives For more information, please contact: [phone] * Full Code (Latest Code Status on File) Date Activated Date Inactivated Comments 06/11/2018 7:42 AM 06/11/2018 7:17 PM * Full Code Date Activated Date Inactivated Comments 04/28/2018 6:37 PM 05/01/2018 4:07 PM Care Teams Sap Basis Relationship Specialty Start Date End Date Primitivo Merchant MD [facility] - General 05/23/17
--- OUTSIDE RECORDS SUMMARY | 2025-01-28 01:44 | XMS_ITS | Clinical Summary ---
Author Organization 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 Osteopenia 02/20/2011 Cervicalgia 02/20/2011 Encounters Date Type Department Care Team Description 01/13/2025 Telephone [facility] [address] [place] [address] Ronel Ty RN from Last 3 Months Immunizations Immunization Administration Dates Next Due Influenza, [...] 07/28/1989 Bilateral implants TONSILLECTOMY 07/29/1961 - 07/28/1962 UTERINE SUSPENSION Medical History Medical History Date Comments Hx Other Medical cervical spinal stenosis Hx Other Medical meningioma Hx Other Medical rectocoele; Com ments: SES 11/22/2016 - Hypercholesterolemia High choles terol; Comments: SES 11/22/2016 - Depression PONV (postoperative nausea and vomiting) GERD (gastroesophageal reflux disease) Left bundle branch block Arthritis rheumatoid Family History Medical History Relation Name Comments [...] on file 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 Gender Identity Not on file Sexual Orientation [...] (2 of 2) 10/12/2019 08/17/2019 Influenza Vaccine (Season Ended) 2025 06/15/2021, 03/28/2020, 05/20/2019, Additional history exists DTaP/Tdap/Td Vaccine (2 - Td or Tdap) 03/21/2027 03/21/2017 Pneumococcal vaccine 65+ Completed 11/26/2016, 10/2014 Hepatitis C Screening Completed 08/13/2019, 016 Medical Devices Implanted Type Area Balloon Dipper Device Identifier Shelf Expiration Date Model / Serial / Lot Icd-10/27/2018 Implanted:2018 by Unknown, Notinfile (Quantity not on file) ICD Chest Biotronik ILIVIA7 [id number] / [id number] / Description:Implanted by [facility] Alex Brunson [id number] Lead (Ra)-10/27/2018 Implanted:2018 by Unknown, Notinfile (Quantity not on file) Lead Heart Biotronik SOLIA S53 [id number] / [id number] / Description:Implanted by [facility] Alex Brunson [id number] Lead (Rv)-10/27/2018 Implanted:2018 by Unknown, Notinfile (Quantity not on file) Lead Heart Biotronik PLEXA S65 [id number] / [id number] / Description:Implanted by [facility] Alex Brunson [id number] Lead (Cor Sinus)-02/23/2019 Implanted:2018 by Unknown, Notinfile (Quantity not on file) Lead Heart Biotronik SENTUS OTWQP [id number] / [id number] / Description:Implanted by [facility] Vladislav Brunson [id number] inSelly Inc Mqm1e1948 Penumbra Coil 400 Rosa .02in 4mm 20cm Complex Large Volume Fully - [id number] Implanted:Qty: 1 on 06/11/2018 at [facility] [employer]ra Inc 07/01/2025 [id number] / / [id number] inSelly Inc Oubsasf44 Pod 45cm Pack J-Soft Coil Embolization Sterile Latex Free - [id number] Implanted:Qty: 1 on 06/11/2018 at [facility] Penumbra Inc 02/22/2026 [id number] / / [id number] [facility] Beatris[employer] [id number] Angio-Seal Vip Bondek-Plus 6fr .035in 70cm Hemostatic Latex Free - [id number] Implanted:Qty: 1 on 06/11/2018 at [facility] Daig [employer] 03/28/2019 [id number] / / [id number] Penumbra Inc [id number] Penumbra Coil 400 Rosa .02in 5mm 30cm Complex Large Volume Fully - [id number] Implanted:Qty: 1 on 06/11/2018 at [facility] Pen[employer] Inc 10/31/2023 [id number] / / [id number] Penumbra Inc Lfvvvln11 Pod 15cm Pack J-Soft Coil Embolization Sterile Latex Free - [id number] Implanted:Qty: 1 on 06/11/2018 at [facility] Pen[employer]ra Inc 02/16/2026 PVHVTCX95 / / [id number] Wim[employer] Inc L85411 Valeri 6mm 14cm 7.4 Loop Soft Radiopacity .018in Coil - [id number] Implanted:Qty: 1 on 06/11/2018 at [facility] [employer] Inc 04/11/2023 [id number] / / [id number] W[employer] Inc Z40176 Valeri 6mm 14cm 7.4 Loop Soft Radiopacity .018in Coil - [id number] Implanted:Qty: 1 on 06/11/2018 at [facility] [employer] 04/11/2023 [id number] / / [id number] Penumbra Inc Ebj7h0758 Penumbra Coil 400 Rosa .02in 6mm 30cm Complex Large Volume Fully - [id number] Implanted:Qty: 1 on 06/11/2018 at [facility] Pen[employer] Inc 10/28/2024 [id number] / / [id number] Penumbra Inc Yipmayq58 Pod 60cm Pack J-Soft Coil Embolization Sterile Latex Free - [id number] Implanted:Qty: 1 on 06/11/2018 at [facility] Pen[employer] Inc 02/22/2026 [id number] / / [id number] Penumbra Inc Udfamva43 Pod 60cm Pack J-Soft Coil Embolization Sterile Latex Free - [id number] Implanted:Qty: 1 on 06/11/2018 at [facility] Pen[employer] Inc 02/22/2026 ZSMPPFO80 / / [id number] Penumbra Inc Hwuctre62 Pod 60cm Pack J-Soft Coil Embolization Sterile Latex Free - [id number] Implanted:Qty: 1 on 06/11/2018 at [facility] Penumbra Inc 02/22/2026 BHUQYNM37 / / [id number] Allosource Freeze Dried Chips 4-10mm Graft 30ml Bone Cancellous [id number] - [id number] - [id number] Implanted:Qty: 1 on 01/09/2022 by Jean Ayala MD at [facility] Right: Wrist Allosource 07/01/2026 [id number] / [id number] / [id number] Trimed Inc Screw 24mm 3.5mm 3.5mm 4.5mm Bone Small Headless Screw Cannulated Screw System Titanium Accepts 1.1mm Terrie Wire L3524 - [id number] Implanted:Qty: 1 on 01/09/2022 by Jean Ayala MD at [facility] Right: Wrist Trimed Inc L3524 / / Trimed Inc Screw 18mm 3mm 3mm 4mm Bone Small Headless Screw Cannulated Screw System Titanium Accepts 1.1mm Terrie Wire L3018 - [id number] Implanted:Qty: 2 on 01/09/2022 by Jean Ayala MD at [facility] Right: Wrist Trimed Inc L3018 / / Explanted Type Area Balloon Dipper Device Identifier Shelf Expiration Date Model / Serial / Lot [employer] [id number] K Wire Fix [place]car Point Bth End Ss [id number] - [id number] Explanted:Qty: 1 on 01/09/2022 by Jean Ayala MD at [facility] Right: Wrist [employer] [id number] / / Trimed Inc Wire 120mm 1.1mm Fixation Terrie Nonsterile Wire-1.1/120 - [id number] Explanted:Qty: 4 on 01/09/2022 by Pet, Jean Pedroza MD at [facility] Right: Wrist Trimed Inc WIRE-1.07/29 20 / / Procedures Procedure Name Priority Date/Time Associated Diagnosis Comments HEPATITIS PANEL, ACUTE Routine 08/13/2019 1:24 PM DEHYDRATING PRESS OPERATOR Rheumatoid arthritis, seropositive, multiple sites (HCC) BONE MINERAL DENSITY 03/28/2015 from Last 3 Months or Most Recently Relevant to Health Maintenance Results * Hepatitis panel, acute (08/13/2019 1:24 PM DEHYDRATING PRESS OPERATOR) Hep A IgM Nonreactive Nonreactive [facility] Comment: Interpretive Data If test is reported as GRAYZONE, new sample should be drawn in two weeks for testing. Current interpretive data was last revised on 2016. Hep B core IgM Nonreactive Nonreactive [facility] Comment: Interpretive Data If test is reported as GRAYZONE, new sample should be drawn for testing. Current interpretive data was last revised on 2016. Hep C Ab Nonreactive Nonreactive [facility] Comment: Interpretive Data Positive results should be confirmed by a molecular method. If positive, a second separately collected sample should be submitted for Hepatitis C Virus (HCV) RNA Detection and Quantitation by Real-Time Reverse Nutritional Assistant-PCR (RT-PCR). Current interpretive data was last revised on 2016. HepBsAg Nonreactive Nonreactive [facility] Blood specimen (specimen) 08/13/2019 1:24 PM DEHYDRATING PRESS OPERATOR 08/13/2019 4:28 PM DEHYDRATING PRESS OPERATOR us Aminta Prado MD LAB MICROBIOLOGY - GENERAL O RDERAMARIA EUGENIA Edited Result - Final [facility] Department [place] [address] * BONE MINERAL DENSITY (03/28/2015) Anatomical Region Laterality Modality Radiographic Naima ging Narrative 03/28/2015 Ordered by an unspecified provider. us Historical Provider MD IZAGUIRRE DXA PROCEDURES Final Result from Last 3 Months or Most Recently Relevant to Health Maintenance Insurance [facility] Member Subscriber Plan / Payer (Ef fective 2019-Present) Name:Bianca Ashli Relation to Subscriber:Self Name:Ashli Valenzuela Payer ID:[id number] Group ID:Not on file Type:[place]ICAID [place] Address: [place] [id number] [facility] MEDICARE ADVANTAGE IDPA MEDICARE ADVANTAGE IDPA [facility] MEDICARE ADVANTAGE Advance Directives For more information, please contact: [phone] * Full Code (Latest Code Status on File) Date Activated Date Inactivated Comments 06/11/2018 7:42 AM 06/11/2018 7:17 PM * Full Code Date Activated Date Inactivated Comments 04/28/2018 6:37 PM 05/01/2018 4:07 PM Care Teams On Air Talent Relationship Specialty Start Date End Date Primitivo Merchant MD [facility] - General 05/23/17
--- OUTSIDE RECORDS SUMMARY | 2025-01-28 01:44 | XMS_ITS | Clinical Summary ---
Author Organization [facility] Address [address] [address] Phone Care Team Providers Care Dry Room Attendant Name Role Phone Primitivo Merchant MD Primary Care Provider [phone] Social History Tobacco Use Types Packs/Day Years [...] Colonoscopy 07/03/2028 07/03/2018 Colorectal Cancer Screening 07/03/2028 Hepatitis B Immunization Aged Out No longer [...] Maintenance Results * HM COLONOSCOPY (07/03/2018) Mo Aletha Laura SORIA PROCEDURE/MINOR SURGICAL ORDERA BLES Final Result from Last 3 Months or Most Recently Relevant to Health Maintenance Insurance MEDICAID [place] Care Teams Dry Room Attendant Relationship Specialty Start Date End Date Primitivo Merchant MD [address] [address] PCP - General Family Medicine 07/05/18
--- OUTSIDE RECORDS SUMMARY | 2025-01-28 01:44 | XMS_ITS | Clinical Summary ---
Author Organization [facility] Address [address] [place] [address] Care Team Providers Care Supervisor Personnel Clerks Name Role Phone Unavailable Primary Care Provider [...]
[2025-01-28 09:47] VITALS: BP 139/78; PULSE 73; RESP 18; TEMP 36.1; O2SAT 98
[2025-01-28] MEDS: LACTATED RINGERS 1,000 ML 150 ML IV CONT (09:56)
[2025-01-28] MEDS: SIMETHICONE ORAL SUSPENSION 20 MG/0.3 ML 30 ML BOTTLE 1.8 ML PO (10:06)
--- NOTE | 2025-01-28 10:12 | P.PNAN_ITS ---
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 Patient Data Age: 74 Gender: F Height: 1.65 m Weight: 72 kg Last Vital Signs Temp 36.1 C L 01/28/25 09:47 Pulse 73 01/28/25 09:47 Resp 18 01/28/25 09:47 BP 139/78 01/28/25 09:47 Pulse Ox 98 01/28/25 09:47 O2 Del Method Room Air 01/28/25 09:47 Allergies Allergy/AdvReac Type Severity Reaction Status Date / Time metoclopramide Allergy Severe SEIZURES Verified 01/28/25 09:45 propoxyphene Allergy Severe NAUSEA Verified 01/28/25 09:45 Cephalosporins Allergy Mild SWELLING Verified 01/28/25 09:45 OF MOUTH AND THROAT Penicillins Allergy Mild SWELLING, Verified 01/28/25 09:45 HIVES prochlorperazine Allergy Mild SEIZURES Verified 01/28/25 09:45 promethazine Allergy Mild UNSURE Verified 01/28/25 09:45 capsaicin (From Zostrix) AdvReac Intermediate Joint Pain Verified 01/28/25 09:45 Home Medications ?Medication ?Instructions ?Recorded ?Confirmed ?Type folic acid 1 mg tablet 1 mg PO DAILY #90 tabs 02/14/21 01/28/25 Rx gabapentin 300 mg capsule 300 mg PO TID #90 caps 04/05/21 01/28/25 Rx ascorbate calcium (vitamin C) 500 500 mg PO DAILY 04/09/21 01/28/25 History mg capsule calcium 600 mg (as 1 tablet PO DAILY 04/09/21 01/28/25 History carbonate)-vitamin D3 5 mcg (200 unit) tablet methotrexate sodium 2.5 mg tablet 8 mg PO WEEKLY 04/09/21 01/28/25 History multivit with minerals-iron 18 1 tablet PO DAILY 04/09/21 01/28/25 History mg-folic ac 400 mcg-vit K 25 mcg tablet (Adults Multivitamin) pravastatin 40 mg tablet 40 mg PO DAILY 04/29/23 01/28/25 History abatacept 125 mg/mL subcutaneous 125 mg subcut WEEKLY 05/18/23 01/28/25 History auto-injector (Orencia ClickJect) hydroxychloroquine 200 mg tablet 100 mg PO BID 12/24/23 01/28/25 History ketoconazole 2 % topical cream 1 applic topical DAILY #30 grams 02/17/24 01/28/25 Rx meclizine 12.5 mg tablet 12.5 mg PO TID PRN dizziness #14 05/21/24 01/20/25 Rx tabs zinc sulfate 50 mg zinc (220 mg) 50 mg PO DAILY 09/07/24 01/28/25 History tablet albuterol sulfate 90 mcg/actuation 1 inh inhalation Q4H PRN 10/29/24 01/20/25 Rx aerosol inhaler bronchospasm #6.7 grams methenamine hippurate 1 gram tablet 1 g PO DAILY 11/18/24 01/28/25 History lansoprazole 30 mg capsule,delayed 30 mg PO BID #60 caps 12/09/24 01/20/25 Rx release cyclobenzaprine 10 mg tablet 10 mg PO TID PRN muscle spasm #30 12/16/24 01/20/25 Rx tabs hydrocodone 5 mg-acetaminophen 325 1 tablet PO Q8H PRN pain 01/11/25 01/20/25 History mg tablet lansoprazole 30 mg capsule,delayed 30 mg PO BID 01/11/25 01/28/25 History release alendronate 70 mg tablet (Fosamax) 70 mg PO WEEKLY #12 tabs 01/18/25 01/28/25 Rx Patient hx anesthesia problems: post op nausea/vomiting Family hx anesthesia problems: none Results Review: All pre-operative results and documents have been reviewed as part of the pre- operative evaluation. [facility] Past Medical History Medical History OAB (overactive bladder) Contact dermatitis Dermatitis Acute bronchitis Persistent cough for 3 weeks or longer Lumbar back pain [place]-neck deformity of finger of left hand Osteoarthritis of foot, right Rheumatoid arteritis COVID Acute sinusitis Eustachian tube dysfunction Unspecified hearing loss Fluid level behind tympanic membrane of left ear Bulging lumbar disc GERD without esophagitis Encounter for screening for other viral diseases Rheumatoid arthritis with rheumatoid factor of multiple sites without organ or systems involvement Osteopenia Bundle branch block Depression Arthritis Anxiety Pacemaker BMI 23.0-23.9, adult Surgical History Surgical History History of appendectomy H/O Spinal surgery History of knee replacement History of [place]ico fundoplication History of augmentation mammoplasty Family History Family History Father Family history of malignant neoplasm Parkinsons Mother Family history of diabetes mellitus in first degree relative Diabetes mellitus Grandparent Family history of tuberculosis Sibling Pulmonary fibrosis, unspecified Sibling COVID-19 Other Family history of kidney disease Social History Social History Social History: Caffeine-none Smoking status: Never smoker Second hand tobacco smoke exposure: No Alcohol intake: never Substance use: never Substance use type: does not use Do You Feel Safe in your Home?: Yes Lack of Transportation: No Lack of Food: Never True Current Housing: I Have Housing Concerned About Future Housing: No Difficulty Paying Gas/Electric Bills: No Difficulty Paying for Meds: No Currently Unemployed: No Education: Bachelor's Degree Difficulty w/ Childcare or Family Care: No Living arrangements: with family Additional living arrangements comments: son 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 Gender identity (if verbalized by the patient): Female Sexual Orientation (if Verbalized by the Patient): Straight or Heterosexual Spiritual care concerns: No Agree to blood products: Yes Anes - Eval Final PreProcedure Day of Procedure 01/28/25 10:12 Patient weight: overweight Heart: regular rate and rhythm Lungs: clear to auscultation Airway: Mallampati scale class II Neurological: alert and oriented Last oral intake: >/= 8 hours ASA classification: III Emergent: no Anesthetic plan: proceed Anesthesia type and monitoring: general GIVS and standard monitoring Results Review: All pre-operative results and documents have been reviewed as part of the pre- operative evaluation. Informed Consent: The patient's anesthetic plan and its attendant risks and benefits were discussed with the patient/family/POA. Questions were solicited and answers provided to the satisfaction of the patient/family/POA.
--- NOTE | 2025-01-28 10:33 | P.HP_ITS ---
H&P: HPI History of Present Illness Date/Time: 01/28/25 10:33 Chief Complaint: Dysphagia Narrative: the patient underwent EGD in October this year, finding a [place] type D esophagitis and stenosis which was dilated to a balloon up to 15 mm. She is here for follow-up EGD taking omeprazole twice a day. Review of Systems Review of Systems: All systems reviewed & are unremarkable except as noted in HPI and below PMFSH Past Medical History Medical History OAB (overactive bladder) Contact dermatitis Dermatitis Acute bronchitis Persistent cough for 3 weeks or longer Lumbar back pain [place]-neck deformity of finger of left hand Osteoarthritis of foot, right Rheumatoid arteritis COVID Acute sinusitis Eustachian tube dysfunction Unspecified hearing loss Fluid level behind tympanic membrane of left ear Bulging lumbar disc GERD without esophagitis Encounter for screening for other viral diseases Rheumatoid arthritis with rheumatoid factor of multiple sites without organ or systems involvement Osteopenia Bundle branch block Depression Arthritis Anxiety Pacemaker BMI 23.0-23.9, adult Surgical History Surgical History History of appendectomy H/O Spinal surgery History of knee replacement History of Nico fundoplication History of augmentation mammoplasty Family History Family History Father Family history of malignant neoplasm Parkinsons Mother Family history of diabetes mellitus in first degree relative Diabetes mellitus Grandparent Family history of tuberculosis Sibling Pulmonary fibrosis, unspecified Sibling COVID-19 Other Family history of kidney disease Social History Social History Social History: Caffeine-none Smoking status: Never smoker Second hand tobacco smoke exposure: No Alcohol intake: never Substance use: never Substance use type: does not use Do You Feel Safe in your Home?: Yes Lack of Transportation: No Lack of Food: Never True Current Housing: I Have Housing Concerned About Future Housing: No Difficulty Paying Gas/Electric Bills: No Difficulty Paying for Meds: No Currently Unemployed: No Education: Bachelor's Degree Difficulty w/ Childcare or Family Care: No Living arrangements: with family Additional living arrangements comments: son 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 Gender identity (if verbalized by the patient): Female Sexual Orientation (if Verbalized by the Patient): Straight or Heterosexual Spiritual care concerns: No Agree to blood products: Yes Meds Home Medications and Allergies Home Medications ?Medication ?Instructions ?Recorded ?Confirmed ?Type folic acid 1 mg tablet 1 mg PO DAILY #90 tabs 02/14/21 01/28/25 Rx gabapentin 300 mg capsule 300 mg PO TID #90 caps 04/05/21 01/28/25 Rx ascorbate calcium (vitamin C) 500 500 mg PO DAILY 04/09/21 01/28/25 History mg capsule calcium 600 mg (as 1 tablet PO DAILY 04/09/21 01/28/25 History carbonate)-vitamin D3 5 mcg (200 unit) tablet methotrexate sodium 2.5 mg tablet 8 mg PO WEEKLY 04/09/21 01/28/25 History multivit with minerals-iron 18 1 tablet PO DAILY 04/09/21 01/28/25 History mg-folic ac 400 mcg-vit K 25 mcg tablet (Adults Multivitamin) pravastatin 40 mg tablet 40 mg PO DAILY 04/29/23 01/28/25 History abatacept 125 mg/mL subcutaneous 125 mg subcut WEEKLY 05/18/23 01/28/25 History auto-injector (Orencia ClickJect) hydroxychloroquine 200 mg tablet 100 mg PO BID 12/24/23 01/28/25 History ketoconazole 2 % topical cream 1 applic topical DAILY #30 grams 02/17/24 01/28/25 Rx meclizine 12.5 mg tablet 12.5 mg PO TID PRN dizziness #14 05/21/24 01/20/25 Rx tabs zinc sulfate 50 mg zinc (220 mg) 50 mg PO DAILY 09/07/24 01/28/25 History tablet albuterol sulfate 90 mcg/actuation 1 inh inhalation Q4H PRN 10/29/24 01/20/25 Rx aerosol inhaler bronchospasm #6.7 grams methenamine hippurate 1 gram tablet 1 g PO DAILY 11/18/24 01/28/25 History lansoprazole 30 mg capsule,delayed 30 mg PO BID #60 caps 12/09/24 01/20/25 Rx release cyclobenzaprine 10 mg tablet 10 mg PO TID PRN muscle spasm #30 12/16/24 01/20/25 Rx tabs hydrocodone 5 mg-acetaminophen 325 1 tablet PO Q8H PRN pain 01/11/25 01/20/25 History mg tablet lansoprazole 30 mg capsule,delayed 30 mg PO BID 01/11/25 01/28/25 History release alendronate 70 mg tablet (Fosamax) 70 mg PO WEEKLY #12 tabs 01/18/25 01/28/25 Rx Allergies Allergy/AdvReac Type Severity Reaction Status Date / Time metoclopramide Allergy Severe SEIZURES Verified 01/28/25 09:45 propoxyphene Allergy Severe NAUSEA Verified 01/28/25 09:45 Cephalosporins Allergy Mild SWELLING Verified 01/28/25 09:45 OF MOUTH AND THROAT Penicillins Allergy Mild SWELLING, Verified 01/28/25 09:45 HIVES prochlorperazine Allergy Mild SEIZURES Verified 01/28/25 09:45 promethazine Allergy Mild UNSURE Verified 01/28/25 09:45 capsaicin (From Zostrix) AdvReac Intermediate Joint Pain Verified 01/28/25 09:45 Vital Signs Vital Signs - 24 hr 01/28/25 09:47 Temperature 96.9 F L Pulse Rate 73 Respiratory Rate 18 Blood Pressure 139/78 Pulse Oximetry 98 Oxygen Delivery Room Air Exam Const: General: cooperative and healthy appearing Resp: Effort & Inspection: normal respiratory effort and able to speak in complete sentences Auscultation: clear to auscultation bilaterally Cardio: Rate: regular rate Rhythm: regular rhythm GI: Inspection: normal to inspection GI Palp: No No hepatosplenomegaly present Auscultation: normal bowel sounds Rectal Exam: deferred Skin: General skin exam: normal color Psych: Appearance: grossly normal Mental Status: mental status grossly normal Assessment and Plan Assessment and plan (1) Esophageal stricture: Code(s): K22.2 - Esophageal obstruction Status: Acute Assessment and Plan: The patient is deemed a good candidate for the procedure. Consent signed. Will proceed.
[2025-01-28 10:53] VITALS: BP 105/59; PULSE 67; RESP 21; O2SAT 98
[2025-01-28 11:03] VITALS: BP 96/81; PULSE 67; RESP 19; O2SAT 99
[2025-01-28 11:13] VITALS: BP 115/65; PULSE 67; RESP 19; O2SAT 99
== END 2025-01-28 11:24 | disposition home or self-care (01) ==
PROVIDERS: PCP Family Medicine; Visit Provider Internal Medicine Gastroenterology
PROC: 0DJ08ZZ Inspection of Upper Intestinal Tract, Via Natural or Artificial Opening Endoscopic (ICD-10-PCS; CPT 43249; principal; 2025-01-28 11:00)
DX: K21.9 Gastro-esophageal reflux disease without esophagitis (principal); K22.2 Esophageal obstruction; K44.9 Diaphragmatic hernia without obstruction or gangrene
CPT/HCPCS: 43249; C1726; J2003; J2704; J7120

== ENCOUNTER 2025-02-18 09:29 | Outpatient (CLI) | payer MEDICARE, MEDICAID, SELFPAY ==
--- NOTE | ~2025-02-18 | XR_ITS ---
EXAMINATION: XR UGI w kub DATE: 02/18/2025 10:21 INDICATION: Diaphragmatic hernia TECHNIQUE: The patient drank thin and thick barium. Initially, the patient was observed in the lateral view during ingestion of thin barium (as she descr ibed coughing during eating and had not undergone a swallowing evaluation with speech pathology). Penetration and aspiration was observed with the thin barium. No penetration or aspiration observed with the thicker barium concentration. The remainder of the examination was performed with the thicker barium concentration. Fluoroscopy of the hypopharynx and esophagus was performed. Fluoroscopy exposure time was 1.8 minutes . The total number of images was 97. The dose-area product was 14.8 Gy-cm^2. COMPARISON: None. FINDINGS: Penetration and aspiration with thin barium. There is no mass or stricture of the esophagus. Esophageal motility is abnormal, demonstrating tertiary contractions. A sliding gastroesophageal hernia is identified. Moderate gastroesophageal reflux with provocative maneuvers. IMPRESSION: Penetration and aspiration with thin barium for which modified barium swallow is recommended with spe ech pathology for further evaluation. Esophageal dysmotility with a sliding hiatal hernia observed. Moderate gastroesophageal reflux was demonstrated. Reviewed, dictated and finalized at location A. IMPRESSION: Penetration and aspiration with thin barium for which modified barium swallow i s recommended with speech pathology for further evaluation. Esophageal dysmotility with a sliding hiatal hernia observed. Moderate gastroesophageal reflux was demonstrated.
--- OUTSIDE RECORDS SUMMARY | 2025-02-18 09:35 | XMS_ITS | Clinical Summary ---
Author Organization [facility] Address [address] [address] Phone Care Team Providers Care Inside Technical Sales Representative Name Role Phone Primitivo Merchant MD Primary Care Provider [phone] Social History Tobacco Use Types Packs/Day Years Used Date Smoking Tobacco: Never Assessed Comments Unknown Sex and Gender Information Value Date Recorded Sex Assigned at Not on file Legal Sex Female 10:28 PM CDT Gender Identity Not on file Sexual Orientation Not on file Plan of Treatment Health Maintenance Due Date Last Done Comments Hepatitis C Virus (HCV) Screening 1950 TdaP Immunization 1950 Cologuard 1996 Immunochemical Fecal Occult Blood 1996 Pneumococcal Immunization (5 0+ years) (1 of 1 - PCV) 2001 Zoster Immunization (1 of 2) 2001 SARS-COV-2 Immunization ( - season) 2024 Influenza Immunization (#1) 2025 Respiratory Syncytial Virus (RSV) Immunization (Adult) (1 - 1-dose 75+ series) 2026 Colonoscopy 07/03/2028 07/03/2018 Colorectal Cancer Screening 07/03/2028 Hepatitis B Immunization Aged Out No longer eligible based on patient's age to complete this topic Human Papillomavirus (HPV) Immunization Aged Out No longer eligible b ased [...] Health Maintenance Insurance MEDICAID [place] Care Teams Inside Technical Sales Representative Relationship Specialty Start Date End Date Primitivo Merchant MD [address] [address] PCP - General Family Medicine 07/05/18
--- OUTSIDE RECORDS SUMMARY | 2025-02-18 09:35 | XMS_ITS | Clinical Summary ---
Author Organization [facility] Address [address] [place] [address] Care Team Providers Care Technology Internship Name Role Phone Primitivo Merchant MD Primary Care Provider [phone] Allergies Active Allergy Reactions Criticality Noted Date [...] (01/02/2022): Added automatically from request for surgery [id number] De Quervain's disease (radial styloid tenosynovi tis) 01/02/2022 Overview (01/02/2022): Added automatically from request for surgery [id number] Aortic dilatation 07/02/2018 Overview (07/02/2018): Ascending aorta [...] Encounters Date Type Department Care Team Description 02/16/2025 11:49 AM CDT - 02/16/2025 11:59 PM CDT Hospital Encounter [facility] [address] [place] [id number] Gastroesophageal reflux disease with esophagitis, unspecified whether hemorrhage; Diaphragmatic hernia without obstruction or gangrene Discharge Disposition: Discharge to home or self care 01/13/2025 Telephone [facility] [address] [facility] [address] [place] [id number] Ronel Ty RN from Last 3 Months [...] more drinks on one occasion? Never 01/03/2022 Personal Safety Answer Date Recorded Have you ever been in or are you currently in a harmful physical or emotional relationship or is someone making you feel afraid or unsafe? Denies 02/16/2025 Comments No Sex and Gender Information Value Date Recorded Sex Assigned at Not on file Legal Sex Female 2:59 PM COGNOS CONSULTANT Gender Identity Not on file Sexual Orientation Not on file Obstetrics History Last Filed Vital Signs Vital Sign Reading Time Taken Comments Blood Pressure 141/80 02/16/2025 12:20 PM CDT Pulse 84 02/16/2025 12:20 PM CDT Temperature 36.3 C (97.3 F) 01/09/2022 11:59 AM CDT Respiratory Rate 16 02/16/2025 12:20 PM CDT Oxygen Saturation 98% 01/09/2022 1:30 PM CDT Inhaled Oxygen Concentration - - Weight 71.2 kg (157 lb) 02/16/2025 12:20 PM CDT Height 167.6 cm (5' 6) 02/16/2025 12:20 PM CDT Body Mass Index 25.34 02/16/2025 12:20 PM CDT Plan of Treatment Health Maintenance Due Date Last Done Comments Breast Cancer Screening-Mammogram 1950 Colon Cancer Screening-Colonoscopy 1950 Depression Screening 1950 Fall Risk Assessment 1950 Hepatitis B Screening 1969 Well Visit 65+ 2016 Osteoporosis Screening-Bone Density Scan 03/28/2017 03/28/2015 Zoster Vaccine (2 of 2) 10/12/2019 08/17/2019 Influenza Vaccine (#1) 2025 1, 03/28/2020, 05/20/2019, Additional history exists DTaP/Tdap/Td Vaccine (2 - Td or Tdap) 03/21/2027 03/21/2017 Pneumococcal vaccine 65+ Completed 018, 11/26/2016, 07/01/2015 Hepatitis C Screening Completed 08/13/2019, 016 Medical Devices Implanted Type Area Change Advisor Device Identifier Shelf Expiration Date Model / Serial / Lot Icd-10/27/2018 Implanted:2018 by Unknown, Notinfile (Quantity not on file) ICD Chest Biotronik [id number] / [id number] / Description:Implanted by [facility] Alex [place] - Dr. Kristy Brunson [id number] Lead (Ra)-10/27/2018 Implanted:2018 by Unknown, Notinfile (Quantity not on file) Lead Heart Biotronik SOLIA [id number] / [id number] / Description:Implanted by [facility] Alex Brunson [id number] Lead (Rv)-10/27/2018 Implanted:2018 by Unknown, Notinfile (Quantity not on file) Lead Heart Biotronik PLEXA S65 [id number] / [id number] / Description:Implanted by [facility] Alex [facility] - Dr. Kristy Brunson [id number] Lead (Cor Sinus)-02/23/2019 Implanted:2018 by Unknown, Notinfile (Quantity not on file) Lead Heart Biotronik SENTUS [id number] / [id number] / Description:Implanted by [facility] Cari[facility] - Dr. Kristy Brunson [id number] Pen[employer]ra Inc [id number] Penumbra Coil 400 Rosa .02in 4mm 20cm Complex Large Volume Fully - [id number] Implanted:Qty: 1 on 06/11/2018 at [facility] [employer] 07/01/2025 [id number] / / [id number] Pen[employer] Inc [id number] Pod 45cm Pack J-Soft Coil Embolization Sterile Latex Free - [id number] Implanted:Qty: 1 on 06/11/2018 at [facility] [employer] 02/22/2026 [id number] / / [id number] Daig Beatris[employer] [id number] Angio-Seal Vip Bondek-Plus 6fr .035in 70cm Hemostatic Latex Free - [id number] Implanted:Qty: 1 on 06/11/2018 at [facility] Daig [employer] 03/28/2019 [id number] / / [id number] Pen[employer] Inc [id number] Penumbra Coil 400 Rosa .02in 5mm 30cm Complex Large Volume Fully - [id number] Implanted:Qty: 1 on 06/11/2018 at [facility] [employer] 10/31/2023 [id number] / / [id number] Pen[employer] Inc [id number] Pod 15cm Pack J-Soft Coil Embolization Sterile Latex Free - [id number] Implanted:Qty: 1 on 06/11/2018 at [facility] [employer] 02/16/2026 [id number] / / [id number] [employer] [id number] Valeri 6mm 14cm 7.4 Loop Soft Radiopacity .018in Coil - [id number] Implanted:Qty: 1 on 06/11/2018 at [facility] [employer] 04/11/2023 [id number] / / [id number] [employer] (ABAM) Medical Inc [id number] Valeri 6mm 14cm 7.4 Loop Soft Radiopacity .018in Coil - [id number] Implanted:Qty: 1 on 06/11/2018 at [facility] [employer] 04/11/2023 [id number] / / [id number] Pen[employer] Inc [id number] Penumbra Coil 400 Rosa .02in 6mm 30cm Complex Large Volume Fully - [id number] Implanted:Qty: 1 on 06/11/2018 at [facility] [employer] 10/28/2024 [id number] / / [id number] Pen[employer] Inc [id number] Pod 60cm Pack J-Soft Coil Embolization Sterile Latex Free - [id number] Implanted:Qty: 1 on 06/11/2018 at [facility] [employer] 02/22/2026 [id number] / / [id number] Pen[employer] Inc [id number] Pod 60cm Pack J-Soft Coil Embolization Sterile Latex Free - [id number] Implanted:Qty: 1 on 06/11/2018 at [facility] [employer] 02/22/2026 [id number] / / [id number] Pen[employer] Inc Ecowlfz26 Pod 60cm Pack J-Soft Coil Embolization Sterile Latex Free - [id number] Implanted:Qty: 1 on 06/11/2018 at [facility] [employer] 02/22/2026 [id number] / / [id number] Allosource Freeze Dried Chips 4-10mm Graft 30ml Bone Cancellous [id number] - [id number] - [id number] Implanted:Qty: 1 on 01/09/2022 by Jean Ayala MD at [facility] Right: Wrist [employer] 07/01/2026 [id number] / [id number] / [id number] Trimed Inc Screw 24mm 3.5mm 3.5mm 4.5mm Bone Small Headless Screw Cannulated Screw System Titanium Accepts 1.1mm Terrie Wire [id number] - [id number] Implanted:Qty: 1 on 01/09/2022 by Jean Ayala MD at [facility] Right: Wrist Tr[employer] Inc [id number] / / Trimed Inc Screw 18mm 3mm 3mm 4mm Bone Small Headless Screw Cannulated Screw System Titanium Accepts 1.1mm Terrie Wire L3018 - [id number] Implanted:Qty: 2 on 01/09/2022 by Jean Ayala MD at [facility] Right: Wrist [employer]im[employer] Inc L3018 / / Explanted Type Area Change Advisor Device Identifier Shelf Expiration Date Model / Serial / Lot [employer] [id number] K Wire Fix [place] Bth End Ss [id number] - [id number] Explanted:Qty: 1 on 01/09/2022 by Jean Ayala MD at [facility] Right: Wrist [employer] [id number] / / Trimed Inc Wire 120mm 1.1mm Fixation Terrie Nonsterile Wire-1.1/120 - [id number] Explanted:Qty: 4 on 01/09/2022 by Jean Ayala MD at [facility] Right: Wrist Tr[employer] Inc WIRE-1.07/29 20 / / Procedures Procedure Name Priority Date/Time Associated Diagnosis Comments HEPATITIS PANEL, ACUTE Routine 08/13/2019 1:24 PM [employer]GNOS CONSULTANT Rheumatoid arthritis, seropositive, multiple sites (HCC) BONE MINERAL DENSITY 03/28/2015 from Last 3 Months or Most Recently Relevant to Health Maintenance Results * Hepatitis panel, acute (08/13/2019 1:24 PM COGNOS CONSULTANT) Hep A IgM Nonreactive Nonreactive [facility] Comment: Interpretive Data If test is reported as GRAYZONE, new sample should be drawn in two weeks for testing. Current interpretive data was last revised on 2016. Hep B core IgM Nonreactive Nonreactive [facility] Comment: Interpretive Data If test is reported as GRAYZONE, new sample should be drawn for testing. Current interpretive data was last revised on 2016. Hep C Ab Nonreactive Nonreactive [facility] Comment: Interpretive Data Positive results should be confirmed by a molecular method. If positive, a second separately collected sample should be submitted for Hepatitis C Virus (HCV) RNA Detection and Quantitation by Real-Time Reverse Radio Engineer-PCR (RT-PCR). Current interpretive data was last revised on 2016. HepBsAg Nonreactive Nonreactive [facility] Blood specimen (specimen) 08/13/2019 1:24 PM COGNOS CONSULTANT 08/13/2019 4:28 PM COGNOS CONSULTANT us Aminta Prado MD LAB MICROBIOLOGY - GENERAL O RDERABLES Edited Result - Final [facility] Department [place] [address] * BONE MINERAL DENSITY (03/28/2015) Anatomical Region Laterality Modality Radiographic Naima ging Narrative 03/28/2015 Ordered by an unspecified provider. us Historical Provider MD IZAGUIRRE DXA PROCEDURES Final Result from Last 3 Months or Most Recently Relevant to Health Maintenance Insurance IDPA [facility] MEDICARE ADVANTAGE IDPA [facility] MEDICARE ADVANTAGE IDPA [facility] MEDICARE ADVANTAGE Advance Directives For more information, please contact: [phone] * Full Code (Latest Code Status on File) Date Activated Date Inactivated Comments 06/11/2018 7:42 AM 06/11/2018 7:17 PM * Full Code Date Activated Date Inactivated Comments 04/28/2018 6:37 PM 05/01/2018 4:07 PM Care Teams Technology Internship Relationship Specialty Start Date End Date Primitivo Merchant MD PCP - General 05/23/17
--- OUTSIDE RECORDS SUMMARY | 2025-02-18 09:35 | XMS_ITS | Patient Health Record ---
Author Organization [facility] Concept Inbox [facility] Address [address] [facility] [address] [place] [address] Care Team Providers Care Director Motion Picture Name Role Phone Nancy Agarwal Unavailable [phone] Reason For Referral No Information Medications Medication SIG (Take, Route, Frequency, Duration) Notes Start Date End Date Status SHINGRIX 50 MCG/0.5ML SUSR *Reorder from [facility] for eRx and Interaction Alerts* 06/27/2020 Active Fluzone High-Dose Quadrivalent 0.7 ML Intramuscular *Reorder from [facility] for eRx and Interaction Alerts* 06/27/2020 Active Meloxicam 15 MG Oral 06/27/2020 Act karson methylPREDNISolone 4 MG Oral 06/27/2020 Active Cyclobenzaprine HCl 10 MG Oral 06/27/2020 Active Venlafaxine HCl ER 37.5 MG Oral 06/27/2020 Active PREDNISONE 5 MG TABS *Reorder fr [facility] for [facility]Rx and Interaction Alerts* 06/27/2020 Active Xeljanz XR 11 MG Oral 06/27/2020 Ac tive Shingrix 50 mcg/0.5 mL Intramuscular 06/27/2020 Active traZODone HCl 50 MG Oral 06/27/2020 Active predniSONE 5 MG Oral 06/27/2020 Act karson Folic Acid 1 MG Oral 06/27/2020 Act karson HYDROXYCHLOROQUINE SULFATE 200 MG TABS *Reorder from [facility] for eRx and Interaction Alerts* 06/27/2020 Active Methotrexate 2.5 MG Oral 06/27/2020 Active METHOTREXATE 2.5 MG TABS *Reorde r from [facility] for eRx and Interaction Alerts* 06/27/2020 Active Pravastatin Sodium 40 MG Oral 06/27/2020 Active Actemra 162 MG/0.9ML Subcutaneous 06/27/2020 Active PRAVASTATIN SODIUM 40 MG TABS *Reorder from [facility] for eRx and Interaction Alerts* 06/27/2020 Active FLUBLOK QUAD (PF) 180 MCG (45 MCG X 4)/0.5 ML IM SYRINGE *Reorder from [facility] for eRx and Interaction Alerts* 06/27/2020 Active XELJANZ XR 11 MG TB24 *Reorder f rom [facility] for eRx and Interaction Alerts* 06/27/2020 Active Gabapentin 300 MG Oral 06/27/2020 A ctive ProAir HFA 108 (90 Base) MCG/ACT Inhalation 06/27/2020 Active predniSONE 2.5 MG Oral 06/27/2020 A ctive Sertraline HCl 100 MG Oral 06/27/2020 Active Omeprazole 20 MG Oral 06/27/2020 Ac tive Carvedilol 3.125 MG Oral 06/27/2020 Active Hydroxychloroquine Sulfate 200 MG Oral 06/27/2020 Active GABAPENTIN 300 MG CAPS *Reorder from [facility] for eRx and Interaction Alerts* 06/27/2020 Active Nitrofurantoin Monohyd Macro 100 MG Oral 06/27/2020 Active Restasis 0.05 % Ophthalmic 06/27/2020 Ac tive traMADol HCl 50 MG Oral 06/27/2020 Active HYDROcodone-Acetaminophe n 5-325 MG Oral 06/27/2020 Active Benzonatate 100 MG Oral 06/27/2020 Active tiZANidine HCl 2 MG Oral 06/27/2020 Active RESTASIS 0.05 % EMUL *Reorder fr om [facility] for eRx and Interaction Alerts* 06/27/2020 Active Immunizations Vaccine Route Administration Date Status Comme nts Influenza virus vaccine, quadrivalent (IIV4), split virus, 0.25 mL dosage Unknown 03/29/2018 Administered Influenza virus vaccine, quadrivalent (IIV4), split virus, 0.25 mL dosage Unknown 04/28/2019 Administered Influenza, high dose seasonal Unknown 04/20/2017 Admini stered Influenza, high dose seasonal Unknown 04/01/2018 Admini stered Influenza, high dose seasonal Unknown 05/20/2019 Admini stered Influenza, seasonal, injecta ble, preservative free, 3 yrs and above Unknown 04/06/2013 Administered Novel [id number], preservative free Unknown 04/06/2016 Administered Pneumococcal conjugate PCV 13 Unknown 07/01/2015 Admini stered Pneumococcal conjugate PCV 7 Unknown 03/29/2018 Adminis tered Pneumococcal polysaccharide PPV23 Unknown 11/26/2016 Ad ministered Tdap Unknown 03/21/2017 Administered Zoster Unknown 08/17/2019 Administered Plan Of Treatment No Information Insurance Providers Payer Name Payer Address Payer Phone Subscriber Number Group Number Insured Name Patient Relationship to Insured Coverage Start Date Coverage End Date [employer] Medicare Replacement/ Advantage - Ppo [address] [address] [place] [address] [id number] BRANDON VALADEZ Self - patient is the insured [place] [address] [address] [place] [address] [id number] BRANDON VALADEZ Self - patient is the insured
--- OUTSIDE RECORDS SUMMARY | 2025-02-18 09:35 | XMS_ITS | Encounter Summary ---
Author Organization [facility] Address [address] [place] [address] Care Team Providers Care Foreign Food Cook Specialty Name Role Phone Primitivo Merchant MD Primary Care Provider + [phone] Reason for Referral * (Routine) - Pending Review Specialty Diagnoses / Procedures Referred By Contac t Referred To Contact Diagnoses Gastroesophageal reflux disease with esophagitis, unspecified whether hemorrhage Diaphragmatic hernia without obstruction or gangrene Procedures High resolution esophageal motility (manometry) - Terence Rodriguez MD [address] [address] Phone: tel: fax: [address] [address] Referral ID Status Reason Start Date Expiration Date V isits Requested Visits Authorized [id number] Pending Review 01/13/2025 02/12/2026 1 1 Reason for Visit * (Routine) - Pending Review Specialty Diagnoses / Procedures Referred By Contac t Referred To Contact Diagnoses Gastroesophageal reflux disease with esophagitis, unspecified whether hemorrhage Diaphragmatic hernia without obstruction or gangrene Procedures High resolution esophageal motility (manometry) - Terence Rodriguez MD [address] [place] [address] Phone: tel: fax: [address] [address] Referral ID Status Reason Start Date Expiration Date V isits Requested Visits Authorized [id number] Pending Review 01/13/2025 02/12/2026 1 1 Encounter Details Date Type Department Care Team (Latest Contact Info) Description 02/16/2025 11:49 AM CDT - 02/16/2025 11:59 PM CDT Hospital Encounter 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 Gender Identity Not on file Sexual Orientation Not on file documented as of this encounter Last Filed Vital Signs Vital Sign Reading Time Taken Comments Blood Pressure 141/80 02/16/2025 12:20 PM CDT Pulse 84 02/16/2025 12:20 PM CDT Temperature - - Respiratory Rate 16 02/16/2025 12:20 PM CDT Oxygen Saturation - - Inhaled Oxygen Concentration - - Weight 71.2 kg (157 lb) 02/16/2025 12:20 PM CDT Height 167.6 cm (5' 6) 02/16/2025 12:20 PM CDT Body Mass Index 25.34 02/16/2025 12:20 PM CDT documented in this encounter Discharge Instructions * Discharge Instructions* Gwendolyn Parmar RN - 02/16/2025 12:15 PM CDT Resume normal activities you were doing at home. Resume diet you were on at home Resume home medications . For questions or concerns please call the Motility Nurse during normal business hours (7:00 am to 3:30 pm) at [phone] Patient received copy and understands the discharge insructions. documented in this encounter Medications at Time of Discharge ascorbic acid (VITAMIN C) 500 mg tablet,chewableIn dications:supplem ent Take 500 mg by mouth daily after lunch calcium carbonate-vitamin D3 1,500 mg (600mg elemental) -800 unit per tabletIndications :Prevention of Vitamin D Deficiency Take 1 tablet by mouth daily after lunch carvedilol (COREG) 3.125 mg tablet Take 1 tablet (3.125 mg total) by mouth 2 (two) times a day 3 05/20/2019 cyclobenzaprine (FLEXERIL) 10 mg tablet Take 10 mg by mouth 3 (three) times a day as needed for muscle spasms 05/19/2020 cycloSPORINE (RESTASIS) 0.05 % ophthalmic emulsion Take as directed 0 0 01/13/2009 folic acid (FOLVITE) 1 mg tabletIndications :Rheumatoid arthritis, involving unspecified site, unspecified whether rheumatoid factor present (HCC) Take 1 tablet (1,000 mcg total) by mouth daily 90 tablet 3 02/16/2021 gabapentin (NEURONTIN) 300 mg capsule TAKE 1 CAPSULE BY MOUTH THREE TIMES DAILY 180 capsule 09/28/2020 HYDROcodone-aceta minophen (NORCO) 5-325 mg per tablet Take 1 tablet by mouth every 6 (six) hours as needed for pain 11/10/2020 hydrOXYchloroQUIN E (PLAQUENIL) 200 mg tabletIndications :Rheumatoid Arthritis Take 1 tablet (200 mg total) by mouth daily 30 tablet 02/16/2021 lansoprazole (PREVACID) 30 mg capsule Take 1 capsule (30 mg total) by mouth 2 (two) times a day 01/06/2025 melatonin 5 mg tabletIndications :sleep Take 5 mg by mouth nightly as needed meloxicam (MOBIC) 15 mg tabletIndications :Rheumatoid Arthritis Take 1 tablet (15 mg total) by mouth daily 30 tablet 4 06/16/2020 methotrexate 2.5 mg tabletIndications :Rheumatoid Arthritis Take 10 tablets (25 mg total) by mouth every 7 days 120 tablet 02/16/2021 multivitamin capsuleIndication s:Vitamin Deficiency Prevention Take 1 capsule by mouth daily after lunch Orencia ClickJect 125 mg/mL auto-injector 12/24/2024 pravastatin (PRAVACHOL) 40 mg tabletIndications :hyperlipidemia Take 40 mg by mouth daily after lunch 3 06/24/2019 venlafaxine XR (EFFEXOR XR) 150 mg 24 hr capsule take 1 capsule by oral route every day 90 3 02/23/2014 zinc 50 mg tabletIndications :supplement Take 1 tablet by mouth daily after lunch documented as of this encounter Discharge Disposition Disposition Code Departure Means Destination Discharge to home or self care documented in this encounter Plan of Treatment Scheduled Orders Name Type Priority Associated Diagnoses Orde r Schedule High resolution esophageal motility (manometry) - GI Routine Gastroesophageal reflux disease with esophagitis, unspecified whether hemorrhage Diaphragmatic hernia without obstruction or gangrene Once for 1 Occurrences starting 02/16/2025 until 02/16/2025 documented as of this encounter Visit Diagnoses Diagnosis Gastroesophageal reflux disease with esophagitis, unspecified whether hemorrhage Diaphragmatic hernia without obstruction or gangrene Diaphragmatic hernia without mention of obstruction or gangrene documented in this encounter Administered Medications Inactive Administered Medications - up to 3 most recent administrations Medication Order MAR Action Action Date Dose Rate Site lidocaine viscous (XYLOCAINE) 2 % solution 15 mL 15 mL, topical, Once, On Sat02/16/25 at 1300, For 1 dose, Pre-Op Given 02/16/2025 12:19 PM CDT 15 mL Anterior Nares documented in this encounter Orders Medications Ordered That Tod ht Not Have Been Administered Count Last Ordered Date First Ordered Date lidocaine viscous (XYLOCAINE ) 2 % solution 15 mL 1 02/16/2025 documented in this encounter Care Teams Foreign Food Cook Specialty Relationship Specialty Start Date End Date Primitivo Merchant MD PCP - General 05/23/17 documented as of this encounter
--- OUTSIDE RECORDS SUMMARY | 2025-02-18 09:35 | XMS_ITS | Referral Summary ---
Author Organization [facility] Address [address] [place] [address] Care Team Providers Care Production Expert Name Role Phone Primitivo Merchant MD Primary Care Provider + [phone] Encounters Date Type Department Care Team Description 02/16/2025 11:49 AM CDT - 02/16/2025 11:59 PM CDT Hospital Encounter [facility] [place] [address] [facility] [address] [place] [address] Gastroesophageal reflux disease with esophagitis, unspecified whether hemorrhage; Diaphragmatic hernia without obstruction or gangrene Discharge Disposition: Discharge to home or self care 01/13/[address] 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 Gender Identity Not on file Sexual Orientation [...] 02/16/2025 12:20 PM CDT Plan of Treatment Not on file Medical Devices Implanted Type Area Circuit Breaker Assembler Device Identifier Shelf Expiration Date Model / Serial / Lot Icd-10/27/2018 Implanted:2018 by Unknown, Notinfile (Quantity not on file) ICD Chest Biotronik [id number] / [id number] / Description:Implanted by Roni Brunson [id number] Lead (Ra)-10/27/2018 Implanted:2018 by Unknown, Notinfile (Quantity not on file) Lead Heart Biotronik SOLIA [id number] / [id number] / Description:Implanted by [facility] Alex Brunson [id number] Lead (Rv)-10/27/2018 Implanted:2018 by Unknown, Notinfile (Quantity not on file) Lead Heart Biotronik PLEXA [id number] / [id number] / Description:Implanted by [facility] Alex Brunson [id number] Lead (Cor Sinus)-02/23/2019 Implanted:2018 by Unknown, Notinfile (Quantity not on file) Lead Heart Biotronik SENTUS [id number] / [id number] / Description:Implanted by [facility] Cariology - Dr. Kristy Brunson [id number] Pen[employer]ra Inc [id number] Penumbra Coil 400 Rosa .02in 4mm 20cm Complex Large Volume Fully - [id number] Implanted:Qty: 1 on 06/11/[address] [facility] [employer] 07/01/2025 [id number] / / [id number] Pen[employer] Inc [id number] Pod 45cm Pack J-Soft Coil Embolization Sterile Latex Free - [id number] Implanted:Qty: 1 on 06/11/[address] [facility] [employer] 02/22/2026 [id number] / / [id number] Daig Beatris/[employer] [id number] Angio-Seal Vip Bondek-Plus 6fr .035in 70cm Hemostatic Latex Free - [id number] Implanted:Qty: 1 on 06/11/[address] [facility] Daig Beatris[employer] 03/28/2019 [id number] / / [id number] Pen[employer] Inc [id number] Penumbra Coil 400 Rosa .02in 5mm 30cm Complex Large Volume Fully - [id number] Implanted:Qty: 1 on 06/11/[address] [facility] [employer] 10/31/2023 [id number] / / [id number] Pen[employer] Inc [id number] Pod 15cm Pack J-Soft Coil Embolization Sterile Latex Free - [id number] Implanted:Qty: 1 on 06/11/[address] [facility] [employer] 02/16/2026 [id number] / / [id number] [employer] Inc [id number] Valeri 6mm 14cm 7.4 Loop Soft Radiopacity .018in Coil - [id number] Implanted:Qty: 1 on 06/11/[address] [facility] [employer] 04/11/2023 [id number] / / [id number] [employer] [id number] Valeri 6mm 14cm 7.4 Loop Soft Radiopacity .018in Coil - [id number] Implanted:Qty: 1 on 06/11/[address] [facility] [employer] Inc 04/11/2023 [id number] / / [id number] Pen[employer] Inc [id number] Penumbra Coil 400 Rosa .02in 6mm 30cm Complex Large Volume Fully - [id number] Implanted:Qty: 1 on 06/11/[address] [facility] [employer] 10/28/2024 [id number] / / [id number] Pen[employer] Inc Uxnywqk77 Pod 60cm Pack J-Soft Coil Embolization Sterile Latex Free - [id number] Implanted:Qty: 1 on 06/11/[address] [facility] [employer] 02/22/2026 [id number] / / [id number] [employer] Inc [id number] Pod 60cm Pack J-Soft Coil Embolization Sterile Latex Free - [id number] Implanted:Qty: 1 on 06/11/[address] [facility] [employer] 02/22/2026 [id number] / / [id number] [employer] Inc Qrydqpe38 Pod 60cm Pack J-Soft Coil Embolization Sterile Latex Free - [id number] Implanted:Qty: 1 on 06/11/[address] [facility] [employer] 02/22/2026 [id number] / / [id number] Allosource Freeze Dried Chips 4-10mm Graft 30ml Bone Cancellous [id number] - [id number] - [id number] Implanted:Qty: 1 on 01/09/2022 by Jean Ayala MD at [facility] Right: Wrist [employer] 07/01/2026 [id number] / [id number] / [id number] Trimed Inc Screw 24mm 3.5mm 3.5mm 4.5mm Bone Small Headless Screw Cannulated Screw System Titanium Accepts 1.1mm Terrie Wire [id number] - [id number] Implanted:Qty: 1 on 01/09/2022 by Jean Ayala MD at [facility] Right: Wrist Trim[employer] Inc L3524 / / Trimed Inc Screw 18mm 3mm 3mm 4mm Bone Small Headless Screw Cannulated Screw System Titanium Accepts 1.1mm Terrie Wire L3018 - [id number] Implanted:Qty: 2 on 01/09/2022 by Jean Ayala MD at [facility] Right: Wrist Trimed Inc L3018 / / Explanted Type Area Circuit Breaker Assembler Device Identifier Shelf Expiration Date Model / Serial / Lot [employer] [id number] K Wire Fix Trocar Point Bth End Ss [id number] - [id number] Explanted:Qty: 1 on 01/09/2022 by Jean Ayala MD at [facility] Right: Wrist [employer] [id number] / / Trimed Inc Wire 120mm 1.1mm Fixation Terrie Nonsterile Wire-1.1120 - [id number] Explanted:Qty: 4 on 01/09/2022 by Jean Ayala MD at [facility] Right: Wrist Tr[employer] Inc WIRE-1.1 20 / / Procedures Procedure Name Priority Date/Time Associated Diagnosis Comments HEPATITIS PANEL, ACUTE Routine 08/13/2019 1:24 PM STOCKHOLDER Rheumatoid arthritis, seropositive, multiple sites (HCC) BONE MINERAL DENSITY 03/28/2015 from Last 3 Months or Most Recently Relevant to Health Maintenance Results * Hepatitis panel, acute (08/13/2019 1:24 PM STOCKHOLDER) Hep A IgM Nonreactive Nonreactive [facility] Comment: Interpretive Data If test is reported as GRAYZONE, new sample should be drawn in two weeks for testing. Current interpretive data was last revised on 2016. Hep B core IgM Nonreactive Nonreactive [facility] Comment: Interpretive Data If test is reported as GRAYZONE, new sample should be drawn for testing. Current interpretive data was last revised on 2016. Hep C Ab Nonreactive Nonreactive [facility] Comment: Interpretive Data Positive results should be confirmed by a molecular method. If positive, a second separately collected sample should be submitted for Hepatitis C Virus (HCV) RNA Detection and Quantitation by Real-Time Reverse Casino Shift Manager-PCR (RT-PCR). Current interpretive data was last revised on 2016. HepBsAg Nonreactive Nonreactive [facility] Blood specimen (specimen) 08/13/2019 1:24 PM STOCKHOLDER 08/13/2019 4:28 PM STOCKHOLDER Aminta Prado MD LAB MICROBIOLOGY - GENERAL O RDERABLES Edited Result - Final [facility] Department [place] [address] * BONE MINERAL DENSITY (03/28/2015) Anatomical Region Laterality Modality Radiographic Naima ging Narrative 03/28/2015 Ordered by an unspecified provider. us Historical Provider MD IZAGUIRRE DXA PROCEDURES Final Result from Last 3 Months or Most Recently Relevant to Health Maintenance Insurance [facility] Address: [address] [address] [place] [address] [employer] MEDICARE ADVANTAGE [facility] Address: [facility] [address] [place] [address] Advance Directives For more information, please contact: [phone] * Full Code (Latest Code Status on File) Date Activated Date Inactivated Comments 06/11/2018 7:42 AM 06/11/2018 7:17 PM * Full Code Date Activated Date Inactivated Comments 04/28/2018 6:37 PM 05/01/2018 4:07 PM Care Teams Production Expert Relationship Specialty Start Date End Date Primitivo Merchant MD PCP - General 05/23/17
--- OUTSIDE RECORDS SUMMARY | 2025-02-18 09:35 | XMS_ITS | Clinical Summary ---
Author Organization [facility] Address [address] [place] [address] Care Team Providers Care Equipment Lead Name Role Phone Unavailable Primary Care Provider [...]
--- OUTSIDE RECORDS SUMMARY | 2025-02-18 09:35 | XMS_ITS | Clinical Summary ---
Author Organization [facility] Address [address] [place] [address] Care Team Providers Care Professor Of Communication Arts Name Role Phone Primitivo Merchant MD Primary Care Provider [phone] Source Comments [facility],non-owned Affiliates and Associated Physician Practices is amultiple site organization consisting of ambulatory clinics and hospital sitesin [place], [place], [place] and [place]. This disclosure is being madepursuant to the Care Everywhere program and may not contain all information available regarding this patient. 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 Gender Identity Not on file Sexual Orientation Not on file Last Filed Vital Signs Vital Sign Reading Time Taken Comments Blood Pressure 118/78 01/01/2017 10:34 AM CDT Pulse 74 01/01/2017 10:34 AM CDT Temperature 36.1 C (97 F) 10/02/2016 9:37 AM DIGITAL PROGRAM MANAGER Respiratory Rate 20 09/16/2016 7:48 AM DIGITAL PROGRAM MANAGER Oxygen Saturation 97% 01/01/2017 10:34 AM CDT [...] season) 2024 DEPRESSION SCREENING 07/29/2024 INFLUENZA VACCINE (#1) 2025 Respiratory Syncytial Virus (RSV) Vaccine Pt: [...] patient's age to complete this topic Insurance [facility] MANAGED MEDICARE ADV Care Teams Professor Of Communication Arts Relationship Specialty Start Date End Date Primitivo Merchant MD [address] [place] [address] PCP - General 07/08/18
== END 2025-02-18 09:30 | disposition home or self-care (01) ==
PROVIDERS: PCP Family Medicine; Visit Provider Surgery
DX: K44.9 Diaphragmatic hernia without obstruction or gangrene (principal); K21.9 Gastro-esophageal reflux disease without esophagitis; K30 Functional dyspepsia
CPT/HCPCS: 74240

== ENCOUNTER 2025-04-05 13:55 | Outpatient (CLI) | payer MEDICARE, MEDICAID, SELFPAY ==
--- NOTE | ~2025-04-05 | XR_ITS ---
MODIFIED ESOPHAGRAM HISTORY: Dysphagia. TECHNIQUE: Modified barium esophagram was performed on 04/27/2025. I administered fluoroscopy and performed the exam with speech pathologist. Patient was seated for lateral fluoroscopic imaging for ingestion of thin liquids, pudding, solids and quantified amounts, followed by thin liquids in uncontrolled amounts. This was recorded on tape. A single fluoroscopic spot image was also recorded. The DAP for this procedure was 0.566 Gycm2. The amount of fluoroscopy time used during this procedure was 1.3 minutes. FINDINGS: Oral stage: Adequate function. Pharyngeal stage: Transient trace (flash) laryngeal penetration without aspiration with thin liquids secondary to reduced laryngeal elevation. Cervical/esophageal stage: Adequate function. IMPRESSION: Mild pharyngeal dysphagia with transient/flash laryngeal penetration without aspiration. Please correlate with speech pathologist findings and specific feeding recommendations. Reviewed, dictated and finalized at location A. IMPRESSION: Mild pharyngeal dysphagia with transient/flash laryngeal penetratio n without aspiration. Please correlate with speech pathologist findings and sp ecific feeding recommendations.
--- OUTSIDE RECORDS SUMMARY | 2025-04-05 14:00 | XMS_ITS | Clinical Summary ---
Author Organization [facility] Address [address] [place] [address] Care Team Providers Care Animal [facility] Office Supervisor Name Role Phone Primitivo Merchant MD Primary Care Provider [phone] Source Comments [facility],non-owned Affiliates and Associated Physician Practices is amultiple site organization consisting of ambulatory clinics and hospital sitesin [place], [place], [place] and [place]. This disclosure is being madepursuant to the Care Everywhere program and may not contain all information available regarding this patient. Last updated 18.[facility] Publons Social History Tobacco Use Types Packs/Day Years Used Date Smoking Tobacco: Never Assessed Comments Unknown Sex and Gender Information Value Date Recorded Sex Assigned at Not on file Legal Sex Female 6:[address] JUDGE Gender Identity Not on file Sexual Orientation Not on file Last Filed Vital Signs Vital Sign Reading Time Taken Comments Blood Pressure 118/78 01/01/2017 10:34 AM CDT Pulse 74 01/01/2017 10:34 AM CDT Temperature 36.1 C (97 F) 10/02/2016 9:[address] JUDGE Respiratory Rate 20 09/16/2016 7:[address] JUDGE Oxygen Saturation 97% 01/01/2017 10:34 AM CDT [...] 2001 ZOSTER VACCINE (1 of 2) 2001 DEPRESSION SCREENING 07/29/2024 COVID-19 VACCINE (1 - 2023-2 5 season) 2025 INFLUENZA VACCINE (#1) 2025 Respiratory Syncytial Virus [...] patient's age to complete this topic Insurance [facility] MANAGED MEDICARE ADV Care Teams Animal Hospital Office Supervisor Relationship Specialty Start Date End Date Primitivo Merchant MD [address] [place] [address] PCP - General 07/08/18
--- OUTSIDE RECORDS SUMMARY | 2025-04-05 14:00 | XMS_ITS | Clinical Summary ---
Author Organization [facility] Address [address] [place] [address] Care Team Providers Care Car Runner Name Role Phone Unavailable Primary Care Provider [...] COVID-19 Vaccine ( - 2023-2 5 season) 2025 RSV Immunization or 60+ Years (1 - [...]
--- OUTSIDE RECORDS SUMMARY | 2025-04-05 14:00 | XMS_ITS | Clinical Summary ---
Author Organization [facility] Address [address] [place] [address] Care Team Providers Care Unit Manager Name Role Phone Primitivo Merchant MD Primary Care Provider [phone] Allergies Active Allergy Reactions Criticality Noted Date [...] (01/02/2022): Added automatically from request for surgery [id number] De Quervain's disease (radial styloid tenosynovi tis) 01/02/2022 Overview (01/02/2022): Added automatically from request for surgery [id number] Aortic dilatation 07/02/2018 Overview (07/02/2018): Ascending aorta [...] 02/16/2025 11:59 PM CDT Hospital Encounter [facility] [place] [address] [place] [address] Gastroesophageal reflux disease with esophagitis, unspecified whether hemorrhage; Diaphragmatic hernia without obstruction or gangrene Discharge Disposition: Discharge to home or self care 01/13/2025 Telephone [facility] [place] [address] [facility] [place] [address] Ronel Ty RN from Last 3 Months [...] on file Legal Sex Female 2:59 PM VICE PRESIDENT OF PROCUREMENT Gender Identity Not on file Sexual Orientation [...] 08/13/2019, 016 Medical Devices Implanted Type Area Meat Boner And Slicer Device Identifier Shelf Expiration Date Model / Serial / Lot Icd-10/27/2018 Implanted:2018 by Unknown, Notinfile (Quantity not on file) ICD Chest Biotronik [id number] / [id number] / Description:Implanted by [facility] Alex [place] - Dr. Kristy Brunson [id number] Lead (Ra)-10/27/2018 Implanted:2018 by Unknown, Notinfile (Quantity not on file) Lead Heart Biotronik SOLIA [id number] / [id number] / Description:Implanted by [facility] Alex Brunson [id number] Lead (Rv)-10/27/2018 Implanted:2018 by Unknown, Notinfile (Quantity not on file) Lead Heart Biotronik PLEXA S65 [id number] / [id number] / Description:Implanted by [facility] Alex Cariology - Dr. Kristy Brunson [id number] Lead (Cor Sinus)-02/23/2019 Implanted:2018 by Unknown, Notinfile (Quantity not on file) Lead Heart Biotronik SENTUS [id number] / [id number] / Description:Implanted by [facility] Cariology - Dr. Kristy Brunson [id number] Penumbra Inc [id number] Penumbra Coil 400 Rosa .02in 4mm 20cm Complex Large Volume Fully - [id number] Implanted:Qty: 1 on 06/11/2018 at [facility] Pen[employer] Inc 07/01/2025 [id number] / / [id number] Pen[employer]ra Inc [id number] Pod 45cm Pack J-Soft Coil Embolization Sterile Latex Free - [id number] Implanted:Qty: 1 on 06/11/2018 at [facility] [employer] 02/22/2026 [id number] / / [id number] Daig Beatris/[employer] [id number] Angio-Seal Vip Bondek-Plus 6fr .035in 70cm Hemostatic Latex Free - [id number] Implanted:Qty: 1 on 06/11/2018 at [facility] Daig Beat[employer] 03/28/2019 [id number] / / [id number] Pen[employer]ra Inc [id number] Penumbra Coil 400 Rosa .02in 5mm 30cm Complex Large Volume Fully - [id number] Implanted:Qty: 1 on 06/11/2018 at [facility] [employer] 10/31/2023 [id number] / / [id number] Pen[employer]ra Inc [id number] Pod 15cm Pack J-Soft Coil Embolization Sterile Latex Free - [id number] Implanted:Qty: 1 on 06/11/2018 at [facility] [employer] 02/16/2026 [id number] / / [id number] [employer] Inc [id number] Valeri 6mm 14cm 7.4 Loop Soft Radiopacity .018in Coil - [id number] Implanted:Qty: 1 on 06/11/2018 at [facility] [employer] 04/11/2023 [id number] / / [id number] Relate[employer] Inc [id number] Valeri 6mm 14cm 7.4 Loop Soft Radiopacity .018in Coil - [id number] Implanted:Qty: 1 on 06/11/2018 at [facility] [employer] 04/11/2023 [id number] / / [id number] Penumbra Inc [id number] Penumbra Coil 400 Rosa .02in 6mm 30cm Complex Large Volume Fully - [id number] Implanted:Qty: 1 on 06/11/2018 at [facility] [employer] 10/28/2024 [id number] / / [id number] Penumbra Inc [id number] Pod 60cm Pack J-Soft Coil Embolization Sterile Latex Free - [id number] Implanted:Qty: 1 on 06/11/2018 at [facility] [employer] 02/22/2026 [id number] / / [id number] Penumbra Inc Urjifre93 Pod 60cm Pack J-Soft Coil Embolization Sterile Latex Free - [id number] Implanted:Qty: 1 on 06/11/2018 at [facility] [employer] 02/22/2026 [id number] / / [id number] Pen[employer]ra Inc Kdksraf43 Pod 60cm Pack J-Soft Coil Embolization Sterile Latex Free - [id number] Implanted:Qty: 1 on 06/11/2018 at [facility] [employer] 02/22/2026 [id number] / / [id number] Allosource Freeze Dried Chips 4-10mm Graft 30ml Bone Cancellous [id number] - [id number] - [id number] Implanted:Qty: 1 on 01/09/2022 by Jean Ayala MD at [facility] Right: Wrist Allosource 07/01/2026 [id number] / [id number] / [id number] Trimed Inc Screw 24mm 3.5mm 3.5mm 4.5mm Bone Small Headless Screw Cannulated Screw System Titanium Accepts 1.1mm Terrie Wire L3524 - [id number] Implanted:Qty: 1 on 01/09/2022 by Jean Ayala MD at [facility] Right: Wrist Trimed Inc L3524 / / Trimed Inc Screw 18mm 3mm 3mm 4mm Bone Small Headless Screw Cannulated Screw System Titanium Accepts 1.1mm Terrie Wire L3018 - [id number] Implanted:Qty: 2 on 01/09/2022 by Jean Ayala MD at [facility] Right: Wrist Trimed Inc L3018 / / Explanted Type Area Meat Boner And Slicer Device Identifier Shelf Expiration Date Model / Serial / Lot [employer] [id number] K Wire Fix [place] Bth End Ss [id number] - [id number] Explanted:Qty: 1 on 01/09/2022 by Jean Ayala MD at [facility] Right: Wrist [employer] [id number] / / Trimed Inc Wire 120mm 1.1mm Fixation Terrie Nonsterile Wire-1.1120 - [id number] Explanted:Qty: 4 on 01/09/2022 by Jean Ayala MD at [facility] Right: Wrist Trimed Inc WIRE-1.07/29 20 / / Procedures Procedure Name Priority Date/Time Associated Diagnosis Comments HIGH RESOLUTION ESOPHAGEAL MOTILITY (MANOMETRY) Routine 02/16/2025 3:15 PM CDT Gastroesophageal reflux disease with esophagitis, unspecified whether hemorrhage Diaphragmatic hernia without obstruction or gangrene HEPATITIS PANEL, ACUTE Routine 08/13/2019 1:24 PM VICE PRESIDENT OF PROCUREMENT Rheumatoid arthritis, seropositive, multiple sites (HCC) BONE MINERAL DENSITY 03/28/2015 from Last 3 Months or Most Recently Relevant to Health Maintenance Results * High resolution esophageal motility (manometry) - (02/16/2025 3:15 PM CDT) Anatomical Region Laterality Modality Other Terence Rodriguez MD GI LAB PROCEDURE ORDERABLES F inal Result * Hepatitis panel, acute (08/13/2019 1:24 PM VICE PRESIDENT OF PROCUREMENT) Hep A IgM Nonreactive Nonreactive [facility] Comment: Interpretive Data If test is reported as GRAYZONE, new sample should be drawn in two weeks for testing. Current interpretive data was last revised on 2016. Hep B core IgM Nonreactive Nonreactive [facility] Comment: Interpretive Data If test is reported as GRAYZONE, new sample should be drawn for testing. Current interpretive data was last revised on 2016. Hep C Ab Nonreactive Nonreactive [facility] Comment: Interpretive Data Positive results should be confirmed by a molecular method. If positive, a second separately collected sample should be submitted for Hepatitis C Virus (HCV) RNA Detection and Quantitation by Real-Time Reverse Supervisor Electronic Testing-PCR (RT-PCR). Current interpretive data was last revised on 2016. HepBsAg Nonreactive Nonreactive [facility] Blood specimen (specimen) 08/13/2019 1:24 PM VICE PRESIDENT OF PROCUREMENT 08/13/2019 4:28 PM VICE PRESIDENT OF PROCUREMENT Aminta Prado MD LAB MICROBIOLOGY - GENERAL O RDERABLES Edited Result - Final [facility] [address] [facility] Department [place] [address] * BONE MINERAL DENSITY (03/28/2015) Anatomical Region Laterality Modality Radiographic Naima ging Narrative 03/28/2015 Ordered by an unspecified provider. Historical Provider MD IZAGUIRRE DXA PROCEDURES Final Result from Last 3 Months or Most Recently Relevant to Health Maintenance Insurance [facility] MEDICARE ADVANTAGE [facility] MEDICARE ADVANTAGE [facility] MEDICARE ADVANTAGE Advance Directives For more information, please contact: [phone] * Full Code (Latest Code Status on File) Date Activated Date Inactivated Comments 06/11/2018 7:42 AM 06/11/2018 7:17 PM * Full Code Date Activated Date Inactivated Comments 04/28/2018 6:37 PM 05/01/2018 4:07 PM Care Teams Unit Manager Relationship Specialty Start Date End Date Primitivo Merchant MD PCP - General 05/23/17
--- OUTSIDE RECORDS SUMMARY | 2025-04-05 14:00 | XMS_ITS | Patient Health Record ---
Author Organization [facility] Address [address] [place] [address] Care Team Providers Care Secretary To Board Of Commissioners Name Role Phone Nancy Agarwal Unavailable [phone] Reason For Referral No Information Medications Medication SIG (Take, Route, Frequency, Duration) Notes Start Date End Date Status SHINGRIX 50 MCG/0.5ML SUSR *Reorder from [facility] for eRx and Interaction Alerts* 06/27/2020 Active Fluzone High-Dose Quadrivalent 0.7 ML Suspension Prefilled Syringe Intramuscular *Reorder from [facility] for eRx and Interaction Alerts* 06/27/2020 Active Meloxicam 15 MG Tablet Oral 06/27/2020 Active methylPREDNISolone 4 MG Tablet Therapy Pack Oral 06/27/2020 Active Cyclobenzaprine HCl 10 MG Tablet Oral 06/27/2020 Active Venlafaxine HCl ER 37.5 MG Capsule Extended Release 24 Hour Oral 06/27/2020 Active PREDNISONE 5 MG TABS *Reorder fr [facility] for eRx and Interaction Alerts* 06/27/2020 Active Xeljanz XR 11 MG Tablet Extended Release 24 Hour Oral 06/27/2020 Act karson Shingrix 50 mcg/0.5 mL Suspension Reconstituted Intramuscular 06/27/2020 Ac tive traZODone HCl 50 MG Tablet Oral 06/27/2020 Active predniSONE 5 MG Tablet Oral 06/27/2020 Active Folic Acid 1 MG Tablet Oral 06/27/2020 Active HYDROXYCHLOROQUINE SULFATE 200 MG TABS *Reorder from [facility] for eRx and Interaction Alerts* 06/27/2020 Active Methotrexate 2.5 MG Tablet Oral 06/27/2020 Active METHOTREXATE 2.5 MG TABS *Vannessa braxton from [facility] for eRx and Interaction Alerts* 06/27/2020 Active Pravastatin Sodium 40 MG Tablet Oral 06/27/2020 Active Actemra 162 MG/0.9ML Solution Prefilled Syringe Subcutaneous 06/27/2020 Active PRAVASTATIN SODIUM 40 MG TABS *Reorder from [facility] for eRx and Interaction Alerts* 06/27/2020 Active FLUBLOK QUAD (PF) 180 MCG (45 MCG X 4)/0.5 ML IM SYRINGE *Reorder from [facility] for eRx and Interaction Alerts* 06/27/2020 Active XELJANZ XR 11 MG TB24 *Reorder f rom [facility] for eRx and Interaction Alerts* 06/27/2020 Active Gabapentin 300 MG Capsule Oral 06/27/2020 Active ProAir HFA 108 (90 Base) MCG/ACT Aerosol Solution Inhalation 06/27/2020 Act karson predniSONE 2.5 MG Tablet Oral 06/27/2020 Active Sertraline HCl 100 MG Tablet Oral 06/27/2020 Active Omeprazole 20 MG Capsule Delayed Release Oral 06/27/2020 Active Carvedilol 3.125 MG Tablet Oral 06/27/2020 Active Hydroxychloroquine Sulfate 200 MG Tablet Oral 06/27/2020 Active GABAPENTIN 300 MG CAPS *Reorder from [facility] for eRx and Interaction Alerts* 06/27/2020 Active Nitrofurantoin Monohyd Macro 100 MG Capsule Oral 06/27/2020 Active Restasis 0.05 % Emulsion Ophthalmic 06/27/2020 Active traMADol HCl 50 MG Tablet Oral 06/27/2020 Active HYDROcodone-Acetaminophe n 5-325 MG Tablet Oral 06/27/2020 Active Benzonatate 100 MG Capsule Oral 06/27/2020 Active tiZANidine HCl 2 MG Tablet Oral 06/27/2020 Active RESTASIS 0.05 % EMUL *Reorder fr [facility] for eRx and Interaction Alerts* 06/27/2020 Active [...] yrs and above Unknown 04/06/2013 Administered Novel [id number], preservative free Unknown 04/06/2016 Administered Pneumococcal conjugate PCV 13 Unknown 07/01/2015 Admini stered Pneumococcal conjugate PCV 7 Unknown 03/29/2018 Adminis tered Pneumococcal polysaccharide PPV23 Unknown 11/26/2016 Ad ministered Tdap Unknown 03/21/2017 Administered Zoster Unknown 08/17/2019 Administered Social History Social History Additional Details Category Social Info Options Details Migrated Social History Migrated Social History Alcohol Intake: None 11/10/2018,Tobacco Years: Never smoker 11/10/2018,Smoking Status: 0 06/01/2019 Plan Of Treatment No Information Insurance Providers Payer Name Payer Address Payer Phone Subscriber Number Group Number Insured Name Patient Relationship to Insured Coverage Start Date Coverage End Date [facility] Medicare Replacement/ Advantage - Ppo [address] [address] [place] [address] [id number] BRANDON VALADEZ Self - patient is the insured [place] [address] [address] [place] [address] [id number] BRANDON VALADEZ Self - patient is the insured
--- OUTSIDE RECORDS SUMMARY | 2025-04-05 14:00 | XMS_ITS | Clinical Summary ---
Author Organization [facility] Address [address] [address] Phone Care Team Providers Care Paperback Machine Operator Name Role Phone Primitivo Merchant MD Primary Care Provider [phone] Social History Tobacco Use Types Packs/Day Years [...] Health Maintenance Insurance MEDICAID [place] Care Teams Paperback Machine Operator Relationship Specialty Start Date End Date Primitivo Merchant MD [address] [place] [address] PCP - General Family Medicine 07/05/18
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
== END 2025-04-05 13:56 | disposition home or self-care (01) ==
LOC: ANHIMG 13:56
PROVIDERS: PCP Family Medicine; Visit Provider Surgery
DX: R13.13 Dysphagia, pharyngeal phase (principal)
CPT/HCPCS: 74230; 92611

== ENCOUNTER 2025-07-05 14:36 | Emergency (ER) | payer MEDICARE, MEDICAID, SELFPAY ==
[2025-07-05 14:42] VITALS: BP 139/87; PULSE 87; RESP 16; TEMP 36.5; O2SAT 99
--- NOTE | 2025-07-05 14:51 | ED.URI ---
HPI - URI/Sore Throat General Chief Complaint: Upper Respiratory Infection Stated Complaint: cough/congestion Time Seen by Provider: 07/05/25 14:51 Source: patient, RN notes reviewed and old records reviewed Mode of arrival: ambulatory Limitations: no limitations History of Present Illness HPI Narrative: 75 year old female who presents to [facility] care with complaints of 8 day history of cough, runny nose, right ear discomfort, nasal passages irritated and symptoms are now trying to go into her chest with cough becoming productive. Patient reports no known fever , chills or sweats or any dyspnea. Patient does have history of RA and is on [employer] for treatment and takes methotrexate. MD elicited complaint: cough and sore throat Pertinent past history: immunosuppression Onset (ago): day(s) (8) Consistency: progressively worsening Severity: moderate Able to tolerate fluids by mouth: Yes Treatments prior to arrival: other (Mucinex and inhaler) Related Data Home Medications ?Medication ?Instructions ?Recorded ?Confirmed ?Last Taken ?Type ascorbate calcium (vitamin C) 500 500 mg PO DAILY 04/09/21 04/16/25 01/27/25 History mg capsule calcium 600 mg (as 1 tablet PO DAILY 04/09/21 04/16/25 01/27/25 History carbonate)-vitamin D3 5 mcg (200 unit) tablet methotrexate sodium 2.5 mg tablet 8 mg PO WEEKLY 04/09/21 04/16/25 01/22/25 History multivit with minerals-iron 18 1 tablet PO DAILY 04/09/21 04/16/25 01/27/25 History mg-folic ac 400 mcg-vit K 25 mcg tablet (Adults Multivitamin) pravastatin 40 mg tablet 40 mg PO DAILY 04/29/23 04/16/25 01/27/25 History abatacept 125 mg/mL subcutaneous 125 mg subcut WEEKLY 05/18/23 04/16/25 01/22/25 History auto-injector ([employer]) zinc sulfate 50 mg zinc (220 mg) 50 mg PO DAILY 09/07/24 04/16/25 01/27/25 History tablet methenamine hippurate 1 gram tablet 1 g PO DAILY 11/18/24 04/16/25 01/27/25 History hydrocodone 5 mg-acetaminophen 325 1 tablet PO Q8H PRN pain 01/11/25 04/16/25 Unknown History mg tablet lansoprazole 30 mg capsule,delayed 30 mg PO BID 01/11/25 04/16/25 01/27/25 History release Allergies Allergy/AdvReac Type Severity Reaction Status Date / Time metoclopramide Allergy Severe SEIZURES Verified 07/05/25 14:46 propoxyphene Allergy Severe NAUSEA Verified 07/05/25 14:46 Cephalosporins Allergy Mild SWELLING Verified 07/05/25 14:46 OF MOUTH AND THROAT Penicillins Allergy Mild SWELLING, Verified 07/05/25 14:46 HIVES prochlorperazine Allergy Mild SEIZURES Verified 07/05/25 14:46 promethazine Allergy Mild UNSURE Verified 07/05/25 14:46 capsaicin (From Zostrix) AdvReac Intermediate Joint Pain Verified 07/05/25 14:46 Review of Systems Review of Systems: CONSTITUTIONAL: reports malaise, no chills, sweats, or fever. EYES: Denies visual changes, redness, or discharge. ENT: Reports rhinorrhea, congestion, sinus pain,right otalgia and no sore throat. CARDIOVASCULAR: Denies chest pain, palpitations, or edema. RESPIRATORY: Reports cough.? Denies dyspnea. GASTROINTESTINAL: Denies abdominal pain, nausea, vomiting, diarrhea SKIN: Denies rash or itching. MUSCULOSKELETAL: Denies myalgia. NEUROLOGIC: Denies headache. All systems reviewed & are unremarkable except as noted in HPI and below PMFSH Past Medical History Medical History OAB (overactive bladder) Contact dermatitis Dermatitis Acute bronchitis Persistent cough for 3 weeks or longer Lumbar back pain [place]-neck deformity of finger of left hand Osteoarthritis of foot, right Rheumatoid arteritis COVID Acute sinusitis Eustachian tube dysfunction Unspecified hearing loss Fluid level behind tympanic membrane of left ear Bulging lumbar disc GERD without esophagitis Encounter for screening for other viral diseases Rheumatoid arthritis with rheumatoid factor of multiple sites without organ or systems involvement Osteopenia Bundle branch block Depression Arthritis Anxiety Pacemaker BMI 23.0-23.9, adult Surgical History Surgical History History of repair of hiatal hernia History of appendectomy H/O Spinal surgery History of knee replacement History of [place] fundoplication History of augmentation mammoplasty Family History Family History Father Family history of malignant neoplasm Parkinsons Mother Family history of diabetes mellitus in first degree relative Diabetes mellitus Grandparent Family history of tuberculosis Sibling Pulmonary fibrosis, unspecified Sibling COVID-19 Other Family history of kidney disease Social History Social History Social History: Caffeine-none Smoking status: Never smoker Second hand tobacco smoke exposure: No Alcohol intake: never Substance use: never Substance use type: does not use Lack of Transportation: No Lack of Food: Never True Current Housing: I Have Housing Concerned About Future Housing: No Difficulty Paying Gas/Electric Bills: No Difficulty Paying for Meds: No Currently Unemployed: No Education: Bachelor's Degree Difficulty w/ Childcare or Family Care: No Living arrangements: with family Additional living arrangements comments: son 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 There is no relevant family history pertinent to the presenting complaint Exam Narrative: GENERAL: Well-appearing, well-nourished, and in no acute distress. HEAD: Normocephalic EYES: PERRLA, conjunctivae clear ENT: Nares clear, turbinates edematous and erythematous, clear discharge. Mucous membranes moist. TM pearly [place] with dull light reflex bilaterally; no tragal tenderness. Oropharynx erythematous without lesions. Tonsils not enlarged and without exudate, no drooling, no hoarseness, no trismus, uvula midline.post nasal drainage present NECK: Supple. No lymphadenopathy CHEST: Clear to auscultation, breath sounds equal. No wheezing, rhonchi, rales, or stridor. No respiratory distress, speaks in full sentences.cough noted SAO2 99% on room air no tachypnea or reports of feeling of dyspnea voiced. HEART: Regular rate and rhythm. No murmur heard. SKIN: Warm, dry, no rash. NEURO: Alert and oriented x3. PSYCH: Normal mood and affect Course Course Level of Care: Express Care Visit Vital Signs Vital signs: Vital Signs Temperature 36.5 C 07/05/25 14:42 Pulse Rate 87 07/05/25 14:42 Respiratory Rate 16 07/05/25 14:42 Blood Pressure 139/87 07/05/25 14:42 Pulse Oximetry 99 07/05/25 14:42 Oxygen Delivery Room Air 07/05/25 14:42 Temperature 36.5 C 07/05/25 14:42 Pulse Rate 87 07/05/25 14:42 Respiratory Rate 16 07/05/25 14:42 Blood Pressure 139/87 07/05/25 14:42 Pulse Oximetry 99 07/05/25 14:42 Oxygen Delivery Room Air 07/05/25 14:42 reviewed MDM MDM Narrative Medical decision making narrative: 75 year old female with complaints of 8 days of sinus congestion drainage with progression of symptoms now with cough that is at times productive. Patient has Rheumatoid arthritis and is immunocompromised will treat with antibiotic steroid and supportive measures for her symptoms. Anticipatory guidance and reasons to seek care in ED discussed with patient with understanding voiced. Differential Diagnosis Differential Diagnosis: Differential diagnostic considerations for upper respiratory infection include upper respiratory infection, croup, otitis media, sinusitis, viral infection, bronchitis, influenza, pharyngitis, strep, uvulitis.? Critical Care Time Critical Care Time Critical Care Time: No Discharge Plan Discharge Clinical Impression: Acute bacterial sinusitis Cough Qualifiers: Cough type: acute Qualified Code(s): R05.1 - Acute cough Patient Disposition: Home Condition: Stable Instructions: Antibiotic Form, Sinusitis (ED), Acute Cough (ED) Additional Instructions: Increase fluids especially juices and water [id number] cough and cold medicine of your choice for your symptoms Mucinex DM daily for cough and congestion Claritin,Zyrtec or Rtupti daily can use Coricidin brand decongestant due to some elevation of blood pressure Steroids as directed--take with food heat to the face 20-30 minutes 4-6 times a day for pain Salt water gargles, throat lozenges or throat sprays as desired Antibiotic as directed--finished the medication If your symptoms persist, change or worsen significantly before you can contact your personal physician then please, without delay, go to the emergency department for further evaluation. Follow-up with PCP in 7-10 days or sooner if needed Follow up with PCP soon in regards to your blood pressure which is elevated above threshold for referral. Blood pressure above 120/80 may indicate pre-hypertension. 139/87 Patient Language: Congolese Prescriptions: New azithromycin 250 mg tablet See Rx Instructions .ROUTE .COMPLEX Qty: 6 0RF Rx Instructions: For 250 mg dose pack: take 500 mg today (day 1), then 250 mg for 4 days (days 2-5) prednisone 20 mg tablet 40 mg PO DAILY 5 Days Qty: 10 0RF No Action [employer] 125 mg/mL auto-injector 125 mg SUBCUT WEEKLY Patient Comments: FRIDAYS methotrexate sodium 2.5 mg tablet 8 mg PO WEEKLY Rx Instructions: 8 tablets on saturday calcium carbonate-vitamin D3 [[place]-600 With Vitamin D] 600 mg(1,500mg) -200 unit Tablet 1 tablet PO DAILY ascorbate calcium (vitamin C) 500 mg Capsule 500 mg PO DAILY Adults Multivitamin 18 mg iron-400 mcg-25 mcg Tablet 1 tablet PO DAILY pravastatin 40 mg tablet 40 mg PO DAILY zinc sulfate 50 mg zinc (220 mg) tablet 50 mg PO DAILY hydrocodone-acetaminophen 5-325 mg tablet 1 tablet PO Q8H PRN (Reason: pain) lansoprazole 30 mg capsule,delayed release(DR/EC) 30 mg PO BID ketoconazole 2 % cream 1 applic topical DAILY Qty: 30 0RF methenamine hippurate 1 gram tablet 1 g PO DAILY folic acid 1 mg tablet 1 mg PO DAILY Qty: 90 0RF gabapentin 300 mg capsule 300 mg PO TID Qty: 90 0RF meclizine 12.5 mg tablet 12.5 mg PO TID PRN (Reason: dizziness) Qty: 14 0RF albuterol sulfate 90 mcg/actuation HFA aerosol inhaler 1 inh inhalation Q4H PRN (Reason: bronchospasm) Qty: 6.7 3RF lansoprazole 30 mg capsule,delayed release(DR/EC) 30 mg PO BID Qty: 60 3RF alendronate [Fosamax] 70 mg tablet 70 mg PO WEEKLY Qty: 12 0RF Patient Comments: FRIDAYS cyclobenzaprine 10 mg tablet 10 mg PO TID PRN (Reason: muscle spasm) Qty: 30 1RF Follow-up/Referrals: Primitivo Merchant MD [Primary Care Provider, Family Practice] Time of Disposition: 15:06 Quality [place] Coma Scale Eyes: Open Verbal: Oriented and Alert Motor: Follows Commands Sunita Coma Total Score: 15
== END 2025-07-05 15:13 | disposition home or self-care (01) ==
PROVIDERS: Emergency Provider Registered Nurse; PCP Family Medicine
DX: J01.90 Acute sinusitis, unspecified (principal); R05.1 Acute cough; K21.9 Gastro-esophageal reflux disease without esophagitis; M05.79 Rheumatoid arthritis with rheumatoid factor of multiple sites without organ or systems involvement; M85.80 Other specified disorders of bone density and structure, unspecified site; M19.071 Primary osteoarthritis, right ankle and foot; Z95.0 Presence of cardiac pacemaker; Z86.16 Personal history of COVID-19
CPT/HCPCS: 99213; G0463